=== PATIENT | female | born 1960 | race Caucasian/White ===

== ENCOUNTER 2024-02-22 10:57 | Outpatient (OUT) | payer BC, SELFPAY ==
--- NOTE | 2024-02-22 11:07 | XR_ITS ---
The [address] [address] Patient Name: AIRAM HASTINGS MRN: [id number] date: 1960 Sex: F Assigned Patient Location: [facility] Current Patient Location: [facility] Accession/Order Number: [id number] Exam Date: 02/22/2024 11:10 Report Date: 02/22/2024 14:08 At the request of: LAURO SIMS Procedure: XR abdomen 1V EXAMINATION: XR abdomen 1V HISTORY: History UTI Z87.440 COMPARISON: No relevant comparison available. FINDINGS: KIDNEY/URETER - RIGHT: No visible renal or ureteral calcifications. KIDNEY/URETER - LEFT: No visible renal or ureteral calcifications. PELVIS: No visible ureteral calcifications. Any visible calcifications favor phleboliths. BOWEL: No abnormal dilation or deviation. BONES: No acute abnormality. Degenerative changes OTHER: Negative. No abnormal gaseous collections. XR/XR abdomen 1V IMPRESSION: No definite urinary tract calculi Electronically authenticated by: CE GARCIA Date: 02/22/2024 14:08
== END 2024-02-22 10:58 | disposition home or self-care (01) ==
LOC: RAD 11:00
PROVIDERS: PCP Family Medicine; Visit Provider Physician Assistant
DX: Z87.440 Personal history of urinary (tract) infections (principal)
CPT/HCPCS: 74018

== ENCOUNTER 2024-04-24 09:37 | Outpatient (OUT) | payer BC, SELFPAY ==
--- OUTSIDE RECORDS SUMMARY | 2024-04-24 09:57 | XMS_ITS ---
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 Name Role Phone Niles Ortiz Primary Care Provider NILES ORTIZ Primary Care Unavailable ANGEL, DR FLORES Primary Care Unavailable ANGEL, DR FLORES Attending Unavailable ANGEL, DR FLORES Admitting Unavailable ANGEL, DR FLORES Attending Unavailable ANGEL, DR FLORES Admitting Unavailable ANGEL, DR FLORES Primary Care Unavailable Brooklyn Alcala Unavailable JULIO FREY Attending Unavailable NILES ORTIZ Primary Care Physician DEA SIMS Attending Unavailable DEA SIMS Attending Unavailable DEA SIMS Attending Unavailable DEA SIMS Attending Unavailable DEA SIMS Admitting Unavailable Allergies Allergy Classification Reported Allergen(s) Allergy Type Date of Onset Reaction(s) Facility (5 sources) Penicillins; Translations: [penicillins] Propensity to adverse reactions to drug 10-10-19 14 Difficulty breathing (finding), Eruption of skin (disorder) [facility] (1 source) Ciprofloxacin Drug Allergy 01-07-20 14 [facility] (1 source) Penicillins Drug allergy (disorder) 01-07-20 14 [facility] (1 source) Sulfonamides (Antibiotic) Drug allergy (disorder) 01-07-20 14 [facility] (1 source) Misc-Food; Translations: [Misc-Food] Food allergy (disorder) 02-20-20 14 [facility] (1 source) Cat/Feline Product Derivatives Drug allergy (disorder) 02-20-20 14 [facility] (5 sources) Ciprofloxacin; Translations: [ciprofloxacin] Drug Allergy hives, Weal (disorder) [facility] (1 source) Penicillin V Drug Allergy [employer] Other Encounters Encounter Date Encounter Type Care Provider Facility Start: 03-06-2024 End: 03-06-2024 Lab Drop off DEA SIMS [facility] Start: 03-06-2024 End: 03-06-2024 ambulatory DEABLANCA SIMS Facility:[facility] Start: 03-06-2024 End: 03-06-2024 Patient encounter procedure DEAREYES SIMS [facility] Start: 02-22-2024 End: 02-22-2024 ambulatory DEABLANCA SIMS Facility:[facility] Start: 02-22-2024 End: 02-22-2024 Patient encounter procedure DEABLANCA SIMS [facility] Start: 10-12-2023 End: 10-12-2023 ambulatory JULIO Jitendra TK Not Available Start: 08-09-2022 End: 08-09-2022 ambulatory Brooklyn Alcala Other [employer] Other Start: 08-09-2022 Office outpatient ne w 20 minutes Brooklyn Alcala [facility] [place] Start: 02-01-[address] NILES ORTIZ Facility: [facility] Start: 01-04-2022 End: 01-05-[address] NILES ORTIZ Facility: Start: 06-23-2021 Emergency department patient visit NILES Jitendra LLAMASA [facility] Start: 06-23-2021 End: 06-23-2021 Emergency department patient visit Niles Llamasa Work Phone: [facility] ED Comment on above: COVID-19 (Primary Dx ) Immunizations Immunization Date Immunization Notes Care Provider Fa cili 07-20-2021 influenza virus vacc ine, unspecified formulation DEA SIMS [facility] 01-08-2021 SARS-CoV-2 (COVID-19 ) mRNA BNT-162b2 vax DEA SIMS [facility] 12-18-2020 SARS-CoV-2 (COVID-19 ) mRNA BNT-162b2 vax DEA SIMS [facility] 06-05-2020 influenza virus vacc ine, unspecified formulation DEAREYES SIMS [facility] 09-07-2018 influenza virus vacc ine, unspecified formulation DEAREYES SIMS [facility] 09-07-2018 pneumococcal polysaccharide vaccine, 23 valent DEAREYES SIMS [facility] 09-07-2018 tetanus toxoid, redu jerry diphtheria toxoid, and acellular pertussis vaccine, adsorbed DEAREYES SIMS [facility] Medications Current Medications Medication Drug Class(es) Dates Sig (Normalized) Sig (Original) acetaminophen 325 mg / HYDROcodone bitartrate 5 mg oral tablet (1 source) Opioid Agonist Start: 10-10-2013 take 1 tablet by mouth every six hours as needed for pain HYDROcodone-acet aminophen (NORCO) 5-325 MG per tablet Take 1 tablet by mouth every 6 hours as needed for Pain (Avoid driving and alcohol use with taking this medication, may cause fatigue). 12 tablet 0 10/10/2013 Active [id number] 200 actuat albuterol 0.09 mg/actuat metered dose inhaler (1 source) beta2-Adrenergic Agonist Start: 08-09-2022 take 2 puff(s) by inhalation every four hours as needed Albuterol Sulfate HFA 108 (90 Base) MCG/ACT 2 puffs as needed Inhalation every 4 hrs Aug, Active Albuterol (Eqv-ProAir HFA) 90 mcg/inh inhalation aerosol (3 sources) Start: 02-22-2024 take 2 puff(s) by inhalation every four hours Albuterol (Eqv-ProAir HFA) 90 mcg/inh inhalation aerosol 2 puff(s), Inhalation, q4hr Start Date: 02/22/24 Status: Ordered amLODIPine Benzoate (1 source) amLODIPine Benzoate Active aspirin 81 mg delayed release oral tablet (4 sources) Platelet Aggregation Inhibitor, Nonsteroidal Anti-inflammatory Drug Start: 02-22-2024 take 1 tablet by mouth once daily aspirin 81 mg Oral EC Tab 81 mg = 1 tab(s), Oral, Daily Start Date: 02/22/24 Status: Ordered Baby Aspirin Act jett atorvastatin 80 mg oral tablet (4 sources) HMG-CoA Reductase Inhibitor Start: 02-22-2024 take 1 tablet by mouth once daily atorvastatin 80 mg Tab 80 mg = 1 tab(s), Oral, Daily Start Date: 02/22/24 Status: Ordered Lipitor Active azithromycin 250 mg oral tablet (2 sources) Macrolide Antimicrobial Start: 08-09-2022 Azithromycin 250 MG 2 tablets on the first day, then 1 tablet daily for 4 days Orally Once a day for 5 day(s) Aug, Active Start: 06-23-2021 End: 06-27-2021 azithromycin (ZITHROMAX Z-PA K) 250 MG tablet Indications: COVID-19 Take 2 tablets (500 mg) on Day 1, and then take 1 tablet (250 mg) on days 2 through 5. 1 packet 0 06/23/2021 06/27/2021 Active 12 hr guaiFENesin 600 mg extended release oral tablet (1 source) Start: 06-23-2021 End: 06-28-2021 take 1 tablet by mouth twice daily guaiFENesin (MUCINEX) 600 MG extended release tablet Take 1 tablet by mouth 2 times daily for 5 days 10 tablet 0 06/23/2021 06/28/2021 Active hydrALAZINE hydrochloride 10 mg oral tablet (4 sources) Arteriolar Vasodilator Start: 02-22-2024 take 1 tablet by mouth twice daily hydrALAZINE 10 mg Tab 10 mg = 1 tab(s), Oral, BID Start Date: 02/22/24 Status: Ordered hydrALAZINE HCl Active hydroCHLOROthiazide 25 mg oral tablet (1 source) Thiazide Diuretic take 1 tablet by mouth once daily hydrochlorothiazide (HYDRODIURIL) 25 MG tablet Take 25 mg by mouth daily. 0 Active hydroCHLOROthiazide 12.5 mg / lisinopril 20 mg oral tablet (4 sources) Thiazide Diuretic, Angiotensin Converting Enzyme Inhibitor Start: 2023 take 1 tablet by mouth once daily hydrochlorothiazide-lisin opril 12.5 mg-20 mg Tab 1 tab(s), Oral, Daily Start Date: 02/22/24 Status: Ordered Lisinopril-hydro CHLOROthiazide Active Insulin Glargine Max Solostar Pen (concentrated) 300 units/mL subcutaneous solution (3 sources) Start: 02-22-2024 Insulin Glargine Max Solostar Pen (concentrated) 300 units/mL subcutaneous solution 66 unit(s), SubCutaneous, Daily Start Date: 02/22/24 Status: Ordered liraglutide (1 source) GLP-1 Receptor Agonist Liraglutide (VICTOZA SC) Inject 1.2 mg into the skin. 0 Active metFORMIN (1 source) Biguanide metFORMIN HCl Ac tive methylPREDNISolone 4 mg oral tablet (1 source) Corticosteroid Start: 08-09-2022 methylPREDNISolone 4 MG as directed Orally Once a day for 6 days Aug, Active Metoprolol (1 source) beta-Adrenergic Alexandro Metoprolol Succinate Active semaglutide 14 mg oral tablet (3 sources) Start: 02-22-2024 take 1 tablet by mouth once daily Rybelsus 14 mg oral tablet 14 mg = 1 tab(s), Oral, Daily Start Date: 02/22/24 Status: Ordered sertraline 50 mg oral tablet (5 sources) Serotonin Reuptake Inhibitor Start: 02-22-2024 take 1 tablet by mouth once daily sertraline 50 mg Tab 50 mg = 1 tab(s), Oral, Daily Start Date: 02/22/24 Status: Ordered Sertraline HCl A ctive take 1 tablet by mouth once ambika y sertraline (ZOLOFT) 25 MG tablet Take 25 mg by mouth daily. 0 Active Completed/Discontinued Medications Medication Drug Class(es) Dates Sig (Normalized) Sig (Original) allopurinol 300 mg oral tablet (4 sources) Xanthine Oxidase Inhibitor Start: 02-22-2024 allopurinol 300 mg Tab 90 EA, 0 Refill(s), TAKE 1 TABLET BY MOUTH ONCE DAILY, Refills(s) 0 Start Date: 02/22/24 Status: Ordered Allopurinol Acti ve amLODIPine 10 mg oral tablet (3 sources) Dihydropyridine Calcium Channel Alexandro Start: 02-22-2024 take 1 tablet by mouth once daily amLODIPine 10 mg Tab 10 mg = 1 tab(s), Oral, Daily, TAKE 1 TABLET BY MOUTH ONCE DAILY Start Date: 02/22/24 Status: Ordered dexamethasone 1 mg/ml oral solution (1 source) Corticosteroid Start: 06-23-2021 End: 06-23-2021 dexamethasone (DECADRON) 1 MG/ML solution 10 mg empagliflozin 25 mg oral tablet (4 sources) Sodium-Glucose Cotransporter 2 Inhibitor Start: 02-22-2024 Jardiance 25 mg oral tablet 30 EA, 0 Refill(s), TAKE 1 TABLET BY MOUTH ONCE DAILY AT THE SAME TIME EACH DAY., Refills(s) 0 Start Date: 02/22/24 Status: Ordered Jardiance Active ondansetron 4 mg disintegrating oral tablet (2 sources) Serotonin-3 Receptor Antagonist Start: 06-23-2021 End: 06-23-2021 ondansetron (ZOFRAN-ODT) disintegrating tablet 4 mg Start: 06-23-2021 ondansetron (Z OFRAN ODT) [address] 1 tablet under the tongue every 8 hours as needed for Nausea or Vomiting 10 tablet 0 06/23/2021 Active Payers Date Payer Category Payer Unknown [id number] 2.16.84 [id number] 1960 Unknown [id number] 2.16.84 [id number] 1960 Unknown [id number] 2.16.84 [id number] 1960 Unknown [id number] 2.16.8 [id number] 1960 Unknown [id number] 2.16.8 [id number] 1960 Unknown [id number] 2.16.8 [id number] 1960 Unknown [id number] 2.16.8 [id number] 1959 Unknown [id number] [facility] [id number] Plan of Treatment Date Care Activity Detail Author Start: 09-07-2028 DTaP/Tdap/Td vaccine (2 - Td or Tdap) DTaP/Tdap/Td vaccine (2 - Td or Tdap) [employer] Phone: Start: 05-01-2024 ambulatory Ambulatory Facility:[facility] Start: 06-03-2021 Influenza vaccination Flu vaccine (# 1) [employer] Phone: Start: 2016 [facility] Work Phone: Start: 10-10-2014 Creatinine measurement Creatinine mo nitoring [facility] [employer] Phone: Start: 10-10-2014 Potassium monitoring Potassium monit oring [employer] Phone: Start: 2010 Screening for malign ant neoplasm of breast Breast cancer screen [employer] Phone: Start: 2010 Shingles Vaccine (1 of 2) Shingles Vaccine (1 of 2) [employer] Phone: Start: 2005 Screening for malign ant neoplasm of colon Colon cancer screen colonoscopy [employer] Phone: Start: 1975 HIV screening HIV screen [facility] Work Phone: Start: 1960 Hepatitis C screening Hepatitis C sc reen [employer] Phone: Problems Active Problems Problem Classification Problem Date Documented Da te Episodic/Chronic Asthma (3 sources) Asthma 02-17-2024 Chronic Biliary tract disease (3 sources) Biliary calculus 02-22-2024 Episodic Chronic obstructive pulmonary disease and bronchiectasis (1 source) Bronchitis, not specified as acute or chronic Episodic Deficiency and other anemia (3 sources) Anemia 02-22-2024 Episodic Diabetes mellitus without complication (3 sources) Diabetes mellitus 02-17-2024 Chronic Diverticulosis and diverticulitis (3 sources) Diverticulitis 02-17-2024 Chronic Essential hypertension (3 sources) Hypertensive disorder 02-17-2024 Chronic Fracture of upper limb (3 sources) Fracture of radius 02-22-2024 Episodic Genitourinary symptoms and ill-defined conditions (3 sources) History of urinary tract infection 02-22-2024 Episodic Headache; including migraine (3 sources) Headache 02-22-2024 Episodic Mood disorders (3 sources) Depressive disorder 02-17-2024 Chronic Other diseases of bladder and urethra (4 sources) Urethral stricture; Translations: [Unspecified urethral stricture, female] Onset: 02-22-2024 Episodic Other gastrointestinal disorders (3 sources) Irritable bowel syndrome 02-17-2024 Chronic Other upper respiratory infections (1 source) Acute pharyngitis, unspecified Episodic Residual codes; unclassified (4 sources) Obstructive sleep apnea (adult) (pediatric); Translations: [OBSTRUCTIVE SLEEP APNEA] Onset: 01-04-2022 Chronic Thyroid disorders (3 sources) Goiter 02-22-2024 Chronic Urinary tract infections (8 sources) Urinary tract infectious disease; Translations: [Urinary tract infection, site not specified] Onset: 02-22-2024 Episodic Viral infection (1 source) Disease caused by 2019-nCoV; Translations: [COVID-19] Episodic Past or Other Problems Problem Classification Problem Date Documented Da te Episodic/Chronic Unclassified (1 source) Contact with and (suspected) exposure to covid-19 Z20.822 Viral infection (1 source) COVID-19 Procedures Date Procedure Procedure Detail Performing Clinician Start: 06-23-2021 Radiologic exam chest 2 views Nano Pool DO Work Phone: Start: 10-03-2015 Colonoscopy DEA LEONARD Start: 08-09-[address] [facility] dilation of urethral stricture DEA SIMS Start: 10-03-2013 Colonoscopy DEA LEONARD Start: 10-03-2012 Cholecystectomy PABLOABIOLA SIMS Start: 10-03-2010 Thyroidectomy DEA SIMS Start: 10-03-2006 Hysterectomy DEA LEONARD Start: 10-03-1962 Tonsillectomy DEA SIMS Results Test Name Value Interpretation Reference Range Facility C Urineon 03-08-2024 Bacteria identified Cx Nom (U) Microbiology PROCEDURE: Urine Culture [R1] SOURCE: U CleanCatch BODY SITE: COLLECTED DATE/TIME: 03/06/2024 09:04 EDT RECEIVED DATE/TIME: 03/06/2024 19:53 EDT START DATE/TIME: 03/06/2024 19:54 EDT FREE TEXT SOURCE: DEA SIMS PA-C, PA-C, DEA Faith FINAL REPORTS Final Report [] Verified Date/Time: 03/08/2024 11:21 EDT >100,000 cfu/ml Klebsiella pneumoniae SUSCEPTIBILITY RESULTS __ LEGEND: S=Susceptible, N/R=Not Reported, Blank=Data not available, or drug not advisable or tested, I=Intermediate, ESBL=Extended spectrum beta-lactamase, R=Resistant, TFG=Thymidine-dependen t strain, CLIFTON=Beta-lactamase positive, OBDULIA=mcg/m;(mg/L), S*=Predicted susceptible interp, R*=Predicted resistant interp Klepne Antibiotic OBDULIA Dilutn OBDULIA Interp Amikacin <=16 S Ampicillin >16 R Ampicillin/ <=8/4 S Sulbactam Aztreonam <=4 S Cefazolin <=2 S Cefepime <=2 S Cefoxitin <=8 S Ceftazidime <=1 S Ceftazidime/ <=8 S Avibactam Ceftriaxone <=1 S Ciprofloxacin <=1 S Ertapenem <=0.5 S Gentamicin <=4 S Levofloxacin <=2 S Meropenem <=1 S Nitrofurantoin <=32 S Piperacillin/ <=16 S Tazobactam Tetracycline <=4 S Tigecycline <=2 S Tobramycin <=4 S Trimethoprim/ <=2/38 S Sulfa Performing Locations R1: This test was performed at: [facility], [address] [place] [address], [id number] , , [facility] Comment on above: Performed By: #### [id number] #### [facility] [address] [place] [address] Ambulatory Visit Summaryon 0 03-06-2024 Ambulatory Visit Summary AIRAM SILVERIO :1960 Visit Date:03/06/2024 Ambulatory Visit Instructions Your Diagnosis UTI (urinary tract infection) Your Care Team Attending Physician - LEVI NICOLE, DEA Faith Primary Care Physician - NILES ORTIZ MD This Is Your Medications List albuterol (Albuterol (Eqv-ProAir HFA) 90 mcg/inh inhalation aerosol) allopurinol (allopurinol 300 mg Tab) amlodipine (amLODIPine 10 mg Tab) aspirin (aspirin 81 mg Oral EC Tab) atorvastatin (atorvastatin 80 mg Tab) empagliflozin (Jardiance 25 mg oral tablet) hydrALAZINE (hydrALAZINE 10 mg Tab) hydrochlorothiazide-li sinopril (hydrochlorothiazide-l isinopril 12.5 mg-20 mg Tab) insulin glargine (Insulin Glargine Max Solostar Pen (concentrated) 300 units/mL subcutaneous solution) semaglutide (Rybelsus 14 mg oral tablet) sertraline (sertraline 50 mg Tab) Procedures Performed Colonoscopy (2015), Cystourethroscopy with dilation of urethral stricture (08/09/2014), Colonoscopy (2013), Cholecystectomy (2012), Thyroidectomy (2010), Hysterectomy (2006), Tonsillectomy (1962). What to do next Scheduled Follow-Up Appointments Tuesday 8:40 AM EDT With: DEA SIMS PA-C Where: [facility] RAD - MISCon 02-24-2024 [facility] [id number]#1.0 0TIFF [facility] Consultation Noteon 02-23-20 Consultation Note [id number]#1.00 TIFF [facility] Lab Reportson 02-23-2024 Lab Reports [id number]#1.00 TIFF [facility] Screenson 02-23-2024 Screens [id number] 0TIFF [facility] Ambulatory Visit Summaryon 0 02-22-2024 Ambulatory Visit Summary AIRAM SILVERIO :1960 Visit Date:02/22/2024 Ambulatory Visit Instructions Your Diagnosis Urinary tract infection Unspecified urethral stricture, female Tests Performed XR Abdomen 1 View -- Results Pending -- Please visit your patient portal for your results or contact your primary care physician. Your Care Team Attending Physician - DEA SIMS PA-C This Is Your Medications List Contact prescribing physician if questions or concerns albuterol (Albuterol (Eqv-ProAir HFA) 90 mcg/inh inhalation aerosol) allopurinol (allopurinol 300 mg Tab) amlodipine (amLODIPine 10 mg Tab) aspirin (aspirin 81 mg Oral EC Tab) atorvastatin (atorvastatin 80 mg Tab) empagliflozin (Jardiance 25 mg oral tablet) hydrALAZINE (hydrALAZINE 10 mg Tab) hydrochlorothiazide-li sinopril (hydrochlorothiazide-l isinopril 12.5 mg-20 mg Tab) insulin glargine (Insulin Glargine Max Solostar Pen (concentrated) 300 units/mL subcutaneous solution) semaglutide (Rybelsus 14 mg oral tablet) sertraline (sertraline 50 mg Tab) Procedures Performed Colonoscopy (2015), Cystourethroscopy with dilation of urethral stricture (08/09/2014), Colonoscopy (2013), Cholecystectomy (2012), Thyroidectomy (2010), Hysterectomy (2006), Tonsillectomy (1962). Discharge Vitals Temperature (Temporal Artery) 36.6 ?C Heart Rate (Peripheral) 90 Blood Pressure 110/68 Height 150 cm Height 59 in Weight 87 kg Weight 191.4 lb BMI 38.67 What to do next Scheduled Follow-Up Appointments Tuesday 8:40 AM EDT With: DEA SIMS PA-C Where: [facility] Patient Educationon 02-22-20 24 Patient Education Urology Dysuria Dysuria is pain or discomfort during urination. The pain or discomfort may be felt in the part of the body that drains urine from the bladder (urethra) or in the surrounding tissue of the genitals. The pain may also be felt in the groin area, lower abdomen, or lower back. You may have to urinate frequently or have the sudden feeling that you have to urinate (urgency). Dysuria can affect anyone, but it is more common in females. Dysuria can be caused by many different things, including: ? Urinary tract infection. ? Kidney stones or bladder stones. ? Certain STIs (sexually transmitted infections), such as chlamydia. ? Dehydration. ? Inflammation of the tissues of the vagina. ? Use of certain medicines. ? Use of certain soaps or scented products that cause irritation. Follow these instructions at home: Medicines ? Take oqnj-izr-jgbuyut and prescription medicines only as told by your health care provider. ? If you were prescribed an antibiotic medicine, take it as told by your health care provider. Do not stop taking the antibiotic even if you start to feel better. Eating and drinking ? Drink enough fluid to keep your urine pale yellow. ? Avoid caffeinated beverages, tea, and alcohol. These beverages can irritate the bladder and make dysuria worse. In males, alcohol may irritate the prostate. General instructions ? Watch your condition for any changes. ? Urinate often. Avoid holding urine for long periods of time. ? If you are female, you should wipe from front to back after urinating or having a bowel movement. Use each piece of toilet paper only once. ? Empty your bladder after sex. ? Keep all follow-up visits. This is important. ? If you had any tests done to find the cause of dysuria, it is up to you to get your test results. Ask your health care provider, or the department that is doing the test, when your results will be ready. Contact a health care provider if: ? You have a fever. ? You develop pain in your back or sides. ? You have nausea or vomiting. ? You have blood in your urine. ? You are not urinating as often as you usually do. Get help right away if: ? Your pain is severe and not relieved with medicines. ? You cannot eat or drink without vomiting. ? You are confused. ? You have a rapid heartbeat while resting. ? You have shaking or chills. ? You feel extremely weak. Summary ? Dysuria is pain or discomfort while urinating. Many different conditions can lead to dysuria. ? If you have dysuria, you may have to urinate frequently or have the sudden feeling that you have to urinate (urgency). ? Watch your condition for any changes. Keep all follow-up visits. ? Make sure that you urinate often and drink enough fluid to keep your urine pale yellow. This information is not intended to replace advice given to you by your health care provider. Make sure you discuss any questions you have with your health care provider. Document Revised: 05/01/2021 Document Reviewed: 05/01/2021 [employer] Patient Education ? 2022 [employer] Matt [facility] Urology Office/Clinic Noteon 02-22-2024 Urology Office/Clinic Note Chief Complaint New patient, dysuria, frequency, kidney pain HPI Staff Pt is a new pt. Last seen in our office by DLS 09/05/14. Pt no showed to follow up appt. DX: Urethral Stricture, Chronic Cystitis, Nocturia, Urgency & Frequency Hx of Hysterectomy in 2006 Hx of Cysto/UD 08/09/14 Hx of DM. Last A1C 10/12/23 6.4 UA 04/24/24 +blood TRACE Leuks & NEG Nitrates +C&S (several bacteria detected) 10/12/23 *Tx'd w/Macrobid therapy Last CMP 03/16/23 BUN 29 Crea 0.87 eGFR 75 Dysuria:yes, burning when urinating Incomplete bladder emptying: denies Hematuria: denies Frequency: once an hour Urgency: yes Nocturia: 2-3 x a night Stream: steady stream Leaking: denies Post void dripping: denies Wearing pads/ Depends: denies Urge incontinence: denies Stress incontinence:urinates when she is coughing, sneezing and laughing Incontinence without Sensory Awareness: _ Abdominal pain: yes left side lower abdominal pain Flank pain: left side Sexual complaints: _ History of Present Illness staff HPI reviewed and agree. Review of Systems PHQ Score Initial Depression Screen Score: 0 SCORE no fever, chills, malaise, myalgia. no rash/lesions. no chest pain, palpitations, or SOB. no abdominal pain, nausea, vomiting. no unilateral calf swelling, redness, pain Physical Exam Vitals & Measurements T: 36.6 ?C(Temporal Artery) HR: 90(Peripheral) BP: 110/68 HT: 59 in HT: 150 cm WT: 87 kg WT: 191.4 lb BMI: 38.67 General: nontoxic, NAD Mouth: moist mucosa Lungs: normal respiratory effort Cardio: regular rate, good distal perfusion Abdomen: nondistended, no suprapubic distention or tenderness, no CVA tenderness Neurologic: Grossly normal Skin: No rashes or suspicious lesions Assessment/Plan Airam is a 63 yo female new to our office due to kidney pain and foul smelling urine. Last seen by Dr. Duffy 2013. No showed follow up appt. BBS 17 Diabetic. Latest A1c 10/12/23 - 6.4 CMP 03/16/23 - BUN 29, Cr 0.87, eGFR 75 1. Urinary tract infection (N39.0: Urinary tract infection, site not specified) Saw her PCP, CONG Roy 10/12/23 for a fever. Was experiencing dysuria and abdominal pain that was radiating to her back. Also fell 3 days prior to that visit. UA was cloudy, positive for blood, and trace leuks. UCx: 10/12/23 - 25k E Coli, 21k Enterobacter Aerogenes, 29k Enterococcus faecalis, tx'd w/ Macrobid -Reports sx resolved, but quickly returned within a month States she has taken AZO since her last UTI along with cranberry juice. Shares she is still experiencing burning with urination and frequency, cloudy, and foul smelling urine, which has been happening since October. Pt states she might of passed a stone in December. Denies hx of stones. Had severe pain and sudden gross hematuria wiped something that 'looked like a clot or stone'. Will order KUB. -Check KUB, pt will have done today -Pt to return to our office after having KUB done to provide UA to send for culture, will treat w 10d course abx once cx final. -Follow up within 6-8 wks to reassess baseline sx 2. Unspecified urethral stricture, female (N35.92: Unspecified urethral stricture, female) S/p cysto/UD 08/09/[address] Duffy. Follow-up With When Contact Information LEVI NICOLE, DEA Faith, URL [address] [place] [address] Additional Instructions: 6 wks Patient Education Dysuria Documentation recorded by the soo Fisher accurately reflects the services(s) I performed and decisions made by me. Authenticated by Dea Sims PA-C on 02/22/2024 10:55:05. ICriselda, personally scribed for Pablo Sims PA-C on 02/22/2024 10:49:25. . Problem List/Past Medical History Ongoing Anemia Asthma Cholelithiases Depression Diabetes Diverticulitis Goiter Headache History of UTI Hypertension IBS (irritable bowel syndrome) Radial fracture Unspecified urethral stricture, female Urinary tract infection UTI (urinary tract infection) Historical No qualifying data Procedure/Surgical History Colonoscopy (2015), Cystourethroscopy with dilation of urethral stricture (08/09/2014), Colonoscopy (2013), Cholecystectomy (2012), Thyroidectomy (2010), Hysterectomy (2006), Tonsillectomy (1962). Medications Albuterol (Eqv-ProAir HFA) 90 mcg/inh inhalation aerosol, 2 puff(s), Inhalation, q4hr allopurinol 300 mg Tab amLODIPine 10 mg Tab, 10 mg= 1 tab(s), Oral, Daily aspirin 81 mg Oral EC Tab, 81 mg= 1 tab(s), Oral, Daily atorvastatin 80 mg Tab, 80 mg= 1 tab(s), Oral, Daily hydrALAZINE 10 mg Tab, 10 mg= 1 tab(s), Oral, BID hydrochlorothiazide-li sinopril 12.5 mg-20 mg Tab, 1 tab(s), Oral, Daily Insulin Glargine Max Solostar Pen (concentrated) 300 units/mL subcutaneous solution, 66 unit(s), SubCutaneous, Daily Jardiance 25 mg oral tablet Rybelsus 14 mg oral tablet, 14 mg= 1 tab(s), Oral, Daily sertraline 50 mg Tab, 50 mg= (more content not included)... Normal [facility] Comment on above: Result Comment: Elec tronically Signed By: DEA SIMS PA-C\.br\Date and Time Signed: 02/22/24 10:55 EDT\.br\Electronically Co-Signed By: Criselda Fisher.br\Date and Time Co-Signed: 02/22/24 10:49 EDT COVID/FLU RT-PCRon 2 SARS-CoV-2 (COVID-19) RNA ELBA+probe Ql (Unsp spec) Positive [employer] Other COVID/FLU RT-PCR Negative [employer] Other Quick Strepon 08-09-2022 S. pyogenes Org specific cx Ql (Throat) Negative [employer] Other Quick Strep [employer] Other XR CHEST (2 VW)on 06-23-2021 XR CHEST (2 VW) EXAMINATION: TWO XRAY VIEWS OF THE CHEST 06/23/2021 2:12 pm COMPARISON: None. HISTORY: ORDERING SYSTEM PROVIDED HISTORY: SOB TECHNOLOGIST PROVIDED HISTORY: SOB FINDINGS: Lungs are clear. Cardiac and mediastinal silhouettes unremarkable. Sternotomy wire sutures present. Osseous structures grossly intact. IMPRESSION: No acute findings. Interpreted by: Juancarlos York DO Signed by: Juancarlos York DO 06/23/21 Final result Normal [facility] XR CHEST (2 VW)Ordered By: Guerita Pool on 06-23-2021 No acute findings. [facility] EXAMINATION: TWO XRA Y VIEWS OF THE CHEST 06/23/2021 2:12 pm COMPARISON: None. HISTORY: ORDERING SYSTEM PROVIDED HISTORY: SOB TECHNOLOGIST PROVIDED HISTORY: SOB FINDINGS: Lungs are clear. Cardiac and mediastinal silhouettes unremarkable. Sternotomy wire sutures present. Osseous structures grossly intact. [facility] Phone: Babak, pn Incoming Radiant Results From [employer] - 06/23/2021 2:19 PM EDT EXAMINATION: TWO XRAY VIEWS OF THE CHEST 06/23/2021 2:12 pm COMPARISON: None. HISTORY: ORDERING SYSTEM PROVIDED HISTORY: SOB TECHNOLOGIST PROVIDED HISTORY: SOB FINDINGS: Lungs are clear. Cardiac and mediastinal silhouettes unremarkable. Sternotomy wire sutures present. Osseous structures grossly intact. IMPRESSION: No acute findings. [employer] Phone: [employer] Phone: Social History Date Type Detail Facility Start: 02-22-2024 Tobacco smoking status Never [facility] Start: 10-10-2013 Tobacco smoking status NHIS Never sm oker [facility] Phone: Start: 1960 [facility] Exposure to SARS-CoV -2 (event) [facility] Vital Signs Date Time Vital Sign Value Performing Clinician Facility 02-22-2024 10:23-0400 Blood Pressure Location DEA SIMS [facility] 02-22-2024 10:23-0400 Body temperature 97.88 [degF] DEA SIMS [facility] 02-22-2024 10:23-0400 Diastolic blood pressure 68 mm[Hg] DEA SIMS [facility] 02-22-2024 10:23-0400 Heart rate 90 /min DEA SIMS [facility] 02-22-2024 10:23-0400 Systolic blood pressure 110 mm[Hg] DEA SIMS [facility] 08-09-2022 11:55-0500 Body height 149.86 cm Brooklyn Alcala Other [employer] Other 08-09-2022 11:55-0500 Body mass index (BMI) [Ratio] 42.41 kg/m2 Brooklyn Alcala Other [employer] Other 08-09-2022 11:55-0500 Body temperature 98.4 [degF] Brooklyn Alcala Other [employer] Other 08-09-2022 11:55-0500 Body weight 95.26 kg Brooklyn Alcala Other [employer] Other 08-09-2022 11:55-0500 Respiratory rate 18 /min Brooklyn Alcala Other [employer] Other 08-09-2022 11:55-0500 SaO2% (BldA) [Mass fraction] 96 % Brooklyn Alcala Other [employer] Other 06-23-2021 16:25-0400 Heart rate 99 /min Rugen Randolph Work Phone: [employer] Work Phone: 06-23-2021 16:25-0400 SaO2% (BldA) [Mass fraction] 95 % Rugen Randolph Work Phone: [employer] Work Phone: 06-23-2021 14:04-0400 Diastolic blood pressure 84 mm[Hg] Rugen Randolph Work Phone: [employer] Work Phone: 06-23-2021 14:04-0400 Systolic blood pressure 132 mm[Hg] Rugen Randolph Work Phone: [employer] Work Phone: 06-23-2021 14:02-0400 Body temperature 99.3 [degF] Rugen Randolph Work Phone: [employer] Work Phone: 06-23-2021 14:02-0400 Respiratory rate 17 /min Rugen Randolph Work Phone: [employer] Work Phone: Functional Status Date Assessment Result Facility 02-22-2024 Functional Status N/A [facility] Discharge instructions 02-22-2024 Note Date & Type Note Facility 02-22-2024 Hospital Discharg e instructions Patient Education 02/22/2024 10:49:13 Dysuria Dysuria Dysuria is pain or discomfort during urination. The pain or discomfort may be felt in the part of the body that drains urine from the bladder (urethra) or in the surrounding tissue of the genitals. The pain may also be felt in the groin area, lower abdomen, or lower back. You may have to urinate frequently or have the sudden feeling that you have to urinate (urgency). Dysuria can affect anyone, but it is more common in females. Dysuria can be caused by many different things, including: Urinary tract infection. Kidney stones or bladder stones. Certain STIs (sexually transmitted infections), such as chlamydia. Dehydration. Inflammation of the tissues of the vagina. Use of certain medicines. Use of certain soaps or scented products that cause irritation. Follow these instructions at home: Medicines Take vpww-ygs-sshyolv and prescription medicines only as told by your health care provider. If you were prescribed an antibiotic medicine, take it as told by your health care provider. Do not stop taking the antibiotic even if you start to feel better. Eating and drinking Drink enough fluid to keep your urine pale yellow. Avoid caffeinated beverages, tea, and alcohol. These beverages can irritate the bladder and make dysuria worse. In males, alcohol may irritate the prostate. General instructions Watch your condition for any changes. Urinate often. Avoid holding urine for long periods of time. If you are female, you should wipe from front to back after urinating or having a bowel movement. Use each piece of toilet paper only once. Empty your bladder after sex. Keep all follow-up visits. This is important. If you had any tests done to find the cause of dysuria, it is up to you to get your test results. Ask your health care provider, or the department that is doing the test, when your results will be ready. Contact a health care provider if: You have a fever. You develop pain in your back or sides. You have nausea or vomiting. You have blood in your urine. You are not urinating as often as you usually do. Get help right away if: Your pain is severe and not relieved with medicines. You cannot eat or drink without vomiting. You are confused. You have a rapid heartbeat while resting. You have shaking or chills. You feel extremely weak. Summary Dysuria is pain or discomfort while urinating. Many different conditions can lead to dysuria. If you have dysuria, you may have to urinate frequently or have the sudden feeling that you have to urinate (urgency). Watch your condition for any changes. Keep all follow-up visits. Make sure that you urinate often and drink enough fluid to keep your urine pale yellow. This information is not intended to replace advice given to you by your health care provider. Make sure you discuss any questions you have with your health care provider. Document Revised: 05/01/2021 Document Reviewed: 05/01/2021 [employer] Patient Education 2022 [employer] Follow Up Care 01/16/2024 11:44:07 With:LEVI NICOLE, DEA Faith, URL Address: [address] [address] When: Unknown [facility] 08-09-[facility] Note Date & Type Note Facility 08-09-2022 Evaluation note Encounter Date Diagnosis Assessment Notes Aug, Sore throat (ICD-10 - J02.9) Aug, COVID-19 (ICD-10 - U07.1) Discharge Instructions for COVID-19 (Suspected or Confirmed ) material was printed Today you tested positive for the COVID virus. This mean you need to follow all CDC quarantine guidelines found at coronavirus.[place].gov. It is important to rest, increase fluids, and stay at home. Recommend contacting primary care provider and discussing best course of action if you have chronic health conditions. COVID POSITIVE education handout discharge instructions. given. Aug, Contact with and (suspected) exposure to covid-19 (ICD-10 - Z20.822) Aug, Bronchitis (ICD-10 - J40) Bronchitis is inflammation of openings of lungs. It is not caused from bacteria. Antibiotics are not needed to treat this illness. Take medications as directed. Rest and increase fluid intake. Take meds with food to prevent stomach upset. Use inhaler as needed for SOB. Blood sugars may increase due to steroid treatment so eat lower amount of carbs. Follow up with primary care provider if symptoms do not improve with treatment plan, although it may take a few weeks for the cough to go away. [employer] Other Hospital Discharge instructions 06-23-2021 Discharge Instr - COCAttachments Note Date & Type Note Facility 06-23-2021 Hospital Discharg e instructions Franci Leyva PA-C - 06/23/2021 1:21 PM EDT Continuity of Care Form Patient Name: Airam Silverio : 1960 Admit date: 06/23/2021 Discharge date: Code Status Order: No Order Advance Directives: Admitting Physician: No admitting provider for patient encounter. PCP: Niles Ortiz Discharging Nurse: Discharging Hospital Unit/Room#: 01/04 Discharging Unit Phone Number: Emergency Contact: No emergency contact information on file. Past Surgical History: Past Surgical History: Procedure Laterality Date CHOLECYSTECTOMY HYSTERECTOMY TONSILLECTOMY Immunization History: Immunization History Administered Date(s) Administered COVID-19, Pfizer, PF, 30mcg/0.3mL 12/18/2020, 01/08/2021 Active Problems: There is no problem list on file for this patient. Isolation/Infection: Isolation No Isolation Patient Infection Status None to display Nurse Assessment: Last Vital Signs: BP 132/84 Pulse 94 Temp 99.3 F (37.4 C) Resp 17 SpO2 96% Last documented pain score (0-10 scale): Pain Level: 8 Last Weight: Wt Readings from Last 1 Encounters: No data found for Wt Mental Status: {IP PT MENTAL STATUS:} IV Access: { RONNI IV ACCESS:540200072} Nursing Mobility/ADLs: Walking {CHP DME ADLs:483404683} Transfer {CHP DME ADLs:504511261} Bathing {CHP DME ADLs:117630485} Dressing {CHP DME ADLs:763846053} Toileting {CHP DME ADLs:197951600} Feeding {CHP DME ADLs:993877761} Offset Printing Press[employer] {CHP DME ADLs:574424293} Med Delivery { RONNI MED Delivery:063361776} Wound Care Documentation and Therapy: Elimination: Continence: Bowel: {YES / NO:} Bladder: {YES / NO:} Urinary Catheter: {Urinary Catheter:386389586} Colostomy/Ileostomy/Ileal Conduit: {YES / NO:} Date of Last BM: No intake or output data in the 24 hours ending 06/23/21 1601 No intake/output data recorded. Safety Concerns: { RONNI Safety Concerns:910197439} Impairments/Disabilities: { RONNI Impairments/Disabilities:28130 8273} Nutrition Therapy: Current Nutrition Therapy: { RONNI Diet List:953786958} Routes of Feeding: {[facility] DME Other Feedings:128010331} Liquids: {[facility] liquid thickness:19378} Daily Fluid Restriction: {CHP DME Yes amt example:793771032} Last Modified Barium Swallow with Video (Video Swallowing Test): {Done Not Done Date:} Treatments at the Time of Hospital Discharge: Respiratory Treatments: Oxygen Therapy: {Therapy; copd oxygen:11502} Ventilator: { CC Vent List:225029421} Rehab Therapies: {THERAPEUTIC INTERVENTION:3749911217} Weight Bearing Status/Restrictions: {[facility] Weight Bearin} Other Medical Equipment (for information only, NOT a DME order): {EQUIPMENT:097334080} Other Treatments: Patient's personal belongings (please select all that are sent with patient): {[facility] DME Belongings:755368961} RN SIGNATURE: {Esignature:655573337} CASE MANAGEMENT/SOCIAL WORK SECTION Inpatient Status Date: Readmission Risk Assessment Score: Readmission Risk Risk of Unplanned Readmission: 0 Discharging to Facility/ Agency Name: Address: Phone: Fax: Dialysis Facility (if applicable) Name: Address: Dialysis Schedule: Phone: Fax: [employer] Room signature: {Esignature:840094295} PHYSICIAN SECTION Prognosis: {Prognosis:3319031785} Condition at Discharge: { Patient Condition:851303919} Rehab Potential (if transferring to Rehab): {Prognosis:6631962550} Recommended Labs or Other Treatments After Discharge: Physician Certification: I certify the above information and transfer of Airam Silverio is necessary for the continuing treatment of the diagnosis listed and that she requires {Admit to Appropriate Level of Care:75174} for {GREATER/LESS:873771495} 30 days. Update Admission H&P: {CHP DME Changes in HandP:000063006} PHYSICIAN SIGNATURE: {Esignature:678646956} The following attachments cannot be sent through Care Everywhere.Coronavirus Disease (COVID-19): General Info (Pashto)documented in this encounter [facility] Phone: Evaluation + Plan note Note Date & Type Note Facility Evaluation + Plan note Future Appointments Appointment Date:05/01/2024 08:40:00 AM Scheduled Provider:DEA SIMS PA-C Location:[facility] Appointment Type:URO Office Visit [facility] Evaluation + Plan note Note Date & Type Note Facility Evaluation + Plan note Future Appointments Appointment Date:05/01/2024 08:40:00 AM Scheduled Provider:DEA SIMS PA-C Location:[facility] Appointment Type:URO Office Visit Diagnostic Tests PendingUrine Culture 03/06/24 [facility] Evaluation note Note Date & Type Note Facility Evaluation note Diagnosis COVID-19- Primary documented in this encounter [employer] Phone: History general Narrative - Reported Note Date & Type Note Facility History general Narrative - Reported Type Medical History Hypertension Medical History type II diabetes Medical History Gout [employer] Other Hospital course Narrative Note Date & Type Note Facility Hospital course Narrative No data available for this section [facility] Hospital Discharge instructions Note Date & Type Note Facility Hospital Discharge instructions No data available for this section [facility] Progress note Note Date & Type Note Facility Progress note No data available for this section [facility] Summary Purpose Family History No Family History Records FoundNo Family History Records FoundNo Family History Records Found No data available for this section No data available for this section No data available for this section No Family History Records FoundNo Family History Records FoundNo Family History Records Found Advance Directives No Advanced Directives Records FoundNo Advanced Directives Records FoundNo Advanced Directives Records FoundNo Advanced Directives Records FoundNo Advanced Directives Records FoundNo Advanced Directives Records Found Additional Source Comments Reason for Visit (unrecogniz ed section and content) Reason Comments Positive For Covid-19 pt sent here from urgent care for cxr, positive for covid this am, states difficulty breathing Ordered Prescriptions (unrec ognized section and content) Prescription Sig Dispensed Refills Start Date End Da te guaiFENesin (MUCINEX) 600 MG extended release tablet Take 1 tablet by mouth 2 times daily for 5 days 10 tablet 0 06/23/2021 06/28/2021 azithromycin (ZITHROMAX Z-TRACI) 250 MG tabletIndications:COVID-1 9 Take 2 tablets (500 mg) on Day 1, and then take 1 tablet (250 mg) on days 2 through 5. 1 packet 0 06/23/2021 06/27/2021 ondansetron (ZOFRAN ODT) [address] 1 tablet under the tongue every 8 hours as needed for Nausea or Vomiting 10 tablet 0 06/23/2021 Scheduled Active and Recently Administ ered Medications (unrecognized section and content) Medication Order 06/21/2021 06/22/2021 06/23/2021 dexamethasone (DECADRON) 1 MG/ML solution 10 mg (COMPLETED) 10 mg, Oral, ONCE, On Tue06/23/21 at 1615, For 1 dose 1624 (Given - Provid er: Brooklyn White RN) ondansetron (ZOFRAN-ODT) disintegrating tablet 4 mg (COMPLETED) 4 mg, Oral, ONCE, On Tue06/23/21 at 1600, For 1 dose 1623 (Given - Provid er: Brooklyn White RN) INFORMATION SOURCE (unrecogn ized section and content) DATE CREATED AUTHOR 06/27/2021 Carrie Moreno [facility] DATE CREATED AUTHOR AUTHOR'S ORGANIZ ATION 03/25/2022 [facility] DATE CREATED AUTHOR AUTHOR'S ORGANIZ ATION 10/13/2023 [facility] DATE CREATED AUTHOR AUTHOR'S ORGANIZ ATION 03/07/2024 [facility] DATE CREATED AUTHOR AUTHOR'S ORGANIZ ATION 03/09/2024 [facility] DATE CREATED AUTHOR AUTHOR'S ORGANIZ ATION 03/10/2024 [facility] Patient Care team informatio n (unrecognized section and content) Personnel Name: ANGEL NILES MESSINA Address: Address: [address] FOR RECORDS PERTAINING TO PATIENTS WHO ARE OR HAVE BEEN ENROLLED IN A CHEMICAL DEPENDENCY/SUBSTANCEABUSE PROGRAM, SOME INFORMATION MAY BE OMITTED. This clinical summary was aggregated from multiple sources. Caution should be exercised in using it in the provision of clinical care. This summary normalizes information from multiple sources, and as a consequence, information in this document may materially change the coding, format and clinical context of patient data. In addition, data may be omitted in some cases. CLINICAL DECISIONS SHOULD BE BASED ON THE PRIMARY CLINICAL RECORDS. [facility]. provides no warranty or guarantee of the accuracy or completeness of information in this document.
[2024-04-24 10:02] LABS: Basophils Absolute Auto 0.1 10^3/uL (0.0-0.1); Basophils Percent Auto 0.7 % (0.2-2.0); Eosinophils Absolute Auto 0.3 10^3/uL (0.0-0.7); Eosinophils Percent Auto 2.5 % (0.9-7.0); Hematocrit 44.2 % (36.0-48.0); Hemoglobin 14.5 g/dL (12.0-16.0); Immature Granulocytes Abs Auto 0.03 10^3/uL (0.00-0.03); Immature Granulocytes Pct Auto 0.2 % (0.0-0.5); Lymphocytes Absolute Auto 3.4 10^3/uL (1.2-3.8); Mean Corpuscular HGB Conc 32.8 g/dL (29.9-35.2); Mean Corpuscular Hemoglobin 29.7 pg (26.7-34.0); Mean Corpuscular Volume 90.6 fL (81.0-99.0); Mean Platelet Volume 10.6 fL (9.5-13.5); Monocytes Absolute Auto 0.8 10^3/uL (0.3-0.8); Monocytes Percent Auto 6.4 % (1.7-12.0); Neutrophils Absolute Auto 7.6 10^3/uL (1.4-6.5); Neutrophils Percent Auto 62.2 % (43.0-75.0); Platelet Count 243 10^3/uL (150-450); Red Blood Count 4.88 10^6/uL (4.20-5.40); Red Cell Distribution Width 15.3 % (11.0-15.0); White Blood Count 12.3 10^3/uL (4.0-11.0)
[2024-04-24 10:20] LABS: Creatinine Urine Random 89.35 mg/dL (20.00-300.00); Microalbum Creatinine Ratio Ur 27.9 mg/g (0.0-29.9); Microalbumin Urine Random 2.5 mg/dL (<=30.0)
[2024-04-24 10:21] LABS: Alanine Aminotransferase 26 U/L (14-59); Albumin Globulin Ratio 0.9; Albumin Level 3.8 g/dL (3.4-5.0); Alkaline Phosphatase 89 U/L (46-116); Anion Gap 13.2; Aspartate Amino Transferase 29 U/L (15-37); BUN Creatinine Ratio 25.9; Bilirubin Total 0.5 mg/dL (0.2-1.0); Calcium 9.3 mg/dL (8.5-10.1); Carbon Dioxide 27.1 mmol/L (21.0-32.0); Chloride 102 mmol/L (98-107); Chol HDL Ratio 3.2; Cholesterol 143 mg/dL (<=200); Estimated GFR (African America >60 (>=60); Estimated GFR (Non-African Ame 51 (>=60); Globulin 4.1 g/dL; Glucose 134 mg/dL (74-106); HDL Cholesterol 45 mg/dL (40-60); Potassium 4.3 mmol/L (3.5-5.1); Sodium 138 mmol/L (136-145); Total Protein 7.9 g/dL (6.4-8.2); Triglycerides 199 mg/dL (<=150); VLDL CHOLESTEROL 39.8 mg/dL
== END 2024-04-24 09:38 | disposition home or self-care (01) ==
LOC: LAB 09:38
PROVIDERS: PCP Family Medicine; Visit Provider Family Medicine
DX: Z00.00 Encounter for general adult medical examination without abnormal findings (principal); E11.29 Type 2 diabetes mellitus with other diabetic kidney complication; E78.1 Pure hyperglyceridemia; E78.3 Hyperchylomicronemia
CPT/HCPCS: 36415; 80053; 80061; 82043; 82570; 85025

== ENCOUNTER 2024-07-06 10:31 | Emergency (ER) | payer BC, SELFPAY ==
--- OUTSIDE RECORDS SUMMARY | 2024-07-06 10:50 | XMS_ITS | CCD ---
Author Organization [facility] Care Team Providers Care Denture Contour Wire Specialist Name Role Phone Niles Ortiz Primary Care Provider [phone] NILES ORTIZ Primary Care Unavailable ANGEL, DR FLOERS Primary Care Unavailable ANGEL, DR FLORES Attending Unavailable ANGEL, DR FLORES Admitting Unavailable ANGEL, DR FLORES Attending Unavailable ANGEL, DR FLORES Admitting Unavailable ANGEL, DR FLORES Primary Care Unavailable Brooklyn Alcala Unavailable NILES ORTIZ Primary Care Physician [phone] JULIO FREY Attending Unavailable NILES ORTIZ Attending Unavailable DEA SIMS Attending Unavailable DEA SIMS Attending Unavailable DEA SIMS Attending Unavailable DEA SIMS Admitting Unavailable DEA SIMS Attending Unavailable Allergies Allergy Classification Reported Allergen(s) Allergy Type Date of Onset Reaction(s) Facility (6 sources) Penicillins; Translations: [penicillins] Propensity to adverse reactions to drug 10-10-19 14 Difficulty breathing (finding), Eruption of skin (disorder) [facility] (1 source) Ciprofloxacin Drug Allergy 01-07-20 14 [facility] (1 source) Penicillins Drug allergy (disorder) 01-07-20 14 [facility] (1 source) Sulfonamides (Antibiotic) Drug allergy (disorder) 01-07-20 14 [facility] (1 source) Misc-Food; Translations: [Misc-Food] Food allergy (disorder) 02-20-20 14 [facility] (1 source) Cat/Feline Product Derivatives Drug allergy (disorder) 02-20-20 14 [facility] (6 sources) Ciprofloxacin; Translations: [ciprofloxacin] Drug Allergy hives, Weal (disorder) [facility] Katerina (1 source) Penicillin V Drug Allergy hives [facility] [employer] Other Medications Current Medications Medication Drug Class(es) Dates [...] cause fatigue). 12 tablet 0 10/10/2013 Active [id number] 200 actuat albuterol 0.09 mg/actuat metered dose inhaler (1 source) beta2-Adrenergic Agonist Start: 08-09-2022 take 2 puff(s) by inhalation every four hours as needed Albuterol Sulfate HFA 108 (90 Base) MCG/ACT 2 puffs as needed Inhalation every 4 hrs Aug, Active Albuterol (Eqv-ProAir HFA) 90 mcg/inh inhalation aerosol (4 sources) Start: 02-22-2024 take 2 puff(s) by inhalation every four hours Albuterol (Eqv-ProAir HFA) 90 mcg/inh inhalation aerosol 2 puff(s), Inhalation, q4hr Start Date: 02/22/24 Status: Ordered amLODIPine Benzoate (1 source) amLODIPine Benzoate Active aspirin 81 mg delayed release oral tablet (5 sources) Platelet Aggregation Inhibitor, Nonsteroidal Anti-inflammatory Drug Start: 02-22-2024 take 1 tablet by mouth once daily aspirin 81 mg Oral EC Tab 81 mg = 1 tab(s), Oral, Daily Start Date: 02/22/24 Status: Ordered Baby Aspirin Act jett atorvastatin 80 mg oral tablet (5 sources) HMG-CoA Reductase Inhibitor Start: 02-22-2024 take [...] Active hydrALAZINE hydrochloride 10 mg oral tablet (5 sources) Arteriolar Vasodilator Start: 02-22-2024 take 1 [...] mg / lisinopril 20 mg oral tablet (5 sources) Thiazide Diuretic, Angiotensin Converting Enzyme Inhibitor Start: 2023 take 1 tablet by mouth once daily hydrochlorothiazide-lisin opril 12.5 mg-20 mg Tab 1 tab(s), Oral, Daily Start Date: 02/22/24 Status: Ordered Lisinopril-hydro CHLOROthiazide Active Insulin Glargine Max Solostar Pen (concentrated) 300 units/mL subcutaneous solution (4 sources) Start: 02-22-2024 Insulin Glargine Max Solostar [...] Succinate Active semaglutide 14 mg oral tablet (4 sources) Start: 02-22-2024 take 1 tablet by mouth once daily Rybelsus 14 mg oral tablet 14 mg = 1 tab(s), Oral, Daily Start Date: 02/22/24 Status: Ordered sertraline 50 mg oral tablet (6 sources) Serotonin Reuptake Inhibitor Start: 02-22-2024 take [...] Sig (Original) allopurinol 300 mg oral tablet (5 sources) Xanthine Oxidase Inhibitor Start: 02-22-2024 allopurinol 300 mg Tab 90 EA, 0 Refill(s), TAKE 1 TABLET BY MOUTH ONCE DAILY, Refills(s) 0 Start Date: 02/22/24 Status: Ordered Allopurinol Acti ve amLODIPine 10 mg oral tablet (4 sources) Dihydropyridine Calcium Channel Alexandro Start: 02-22-2024 take 1 tablet by mouth once daily amLODIPine 10 mg Tab 10 mg = 1 tab(s), Oral, Daily, TAKE 1 TABLET BY MOUTH ONCE DAILY Start Date: 02/22/24 Status: Ordered dexamethasone 1 mg/ml oral solution (1 source) Corticosteroid Start: 06-23-2021 End: 06-23-2021 dexamethasone (DECADRON) 1 MG/ML solution 10 mg empagliflozin 25 mg oral tablet (5 sources) Sodium-Glucose Cotransporter 2 Inhibitor Start: 02-22-2024 [...] or Vomiting 10 tablet 0 06/23/2021 Active Problems Active Problems Problem Classification Problem Date Documented Da te Episodic/Chronic Asthma (4 sources) Asthma 02-17-2024 Chronic Biliary tract disease (4 sources) Biliary calculus 02-22-2024 Episodic Chronic obstructive pulmonary disease and bronchiectasis (1 source) Bronchitis, not specified as acute or chronic Episodic Deficiency and other anemia (4 sources) Anemia 02-22-2024 Episodic Diabetes mellitus without complication (4 sources) Diabetes mellitus 02-17-2024 Chronic Diverticulosis and diverticulitis (4 sources) Diverticulitis 02-17-2024 Chronic Essential hypertension (4 sources) Hypertensive disorder 02-17-2024 Chronic Fracture of upper limb (4 sources) Fracture of radius 02-22-2024 Episodic Genitourinary symptoms and ill-defined conditions (4 sources) History of urinary tract infection 02-22-2024 Episodic Headache; including migraine (4 sources) Headache 02-22-2024 Episodic Mood disorders (4 sources) Depressive disorder 02-17-2024 Chronic Other diseases of bladder and urethra (5 sources) Urethral stricture; Translations: [Unspecified urethral stricture, female] Onset: 02-22-2024 Episodic Other gastrointestinal disorders (4 sources) Irritable bowel syndrome 02-17-2024 Chronic Other upper respiratory infections (1 source) Acute pharyngitis, unspecified Episodic Residual codes; unclassified (4 sources) Obstructive sleep apnea (adult) (pediatric); Translations: [OBSTRUCTIVE SLEEP APNEA] Onset: 01-04-2022 Chronic Thyroid disorders (4 sources) Goiter 02-22-2024 Chronic Urinary tract infections (10 sources) Urinary tract infectious disease; Translations: [Urinary tract infection, site not specified] Onset: 02-22-2024 Episodic Viral infection (1 source) Disease caused by 2019-nCoV; Translations: [COVID-19] Episodic Past or Other Problems Problem Classification Problem Date Documented Da te Episodic/Chronic Unclassified (1 source) Contact with and (suspected) exposure to covid-19 Z20.822 Viral infection (1 source) COVID-19 Results Test Name Value Interpretation Reference Range Facility C Urineon 06-06-2024 Bacteria identified Cx Nom (U) Microbiology PROCEDURE: [...] Locations R1: This test was performed at: [facility], [address] [place] [address], [id number]- , [place], [facility] Comment on above: Performed By: #### 2 [id number] #### [facility] [address] [place] [id number] Ambulatory Visit Summaryon 0 03-06-2024 Ambulatory Visit Summary AIRAM SILVERIO :1960 Visit Date:03/06/2024 Ambulatory Visit Instructions Your Diagnosis UTI (urinary tract infection) Your Care Team Attending Physician - LEVI NICOLE, DEA Faith Primary Care Physician - ANGEL MESSINA, NILES Ham This Is Your Medications List albuterol (Albuterol [...] DEA SIMS PA-C Where: [facility] RAD - MISCon 02-24-2024 RAD - MIS [id number]#[id number] 0TIFF [facility] Consultation Noteon 02-23-20 Consultation Note [id number]#[id number] TIFF [facility] Screenson 02-23-2024 Screens [id number] 0TIFF [facility] Ambulatory Visit Summaryon 0 02-22-2024 Ambulatory Visit Summary AIRAM SILVERIO :1960 Visit Date:02/22/2024 Ambulatory Visit Instructions Your Diagnosis Urinary tract infection Unspecified urethral stricture, female Tests Performed XR Abdomen 1 View -- Results Pending -- Please visit your patient portal for your results or contact your primary care physician. Your Care Team Attending Physician - DAE SIMS PA-C This Is Your Medications List [...] Cholecystectomy (2012), Thyroidectomy (2010), Hysterectomy (2006), Tonsillectomy (1963). Discharge Vitals Temperature (Temporal Artery) 36.6 ?C Heart Rate (Peripheral) 90 Blood Pressure 110/68 Height 150 cm Height 59 in Weight 87 kg Weight 191.4 lb BMI 38.67 What to do next Scheduled Follow-Up Appointments Tuesday 8:40 AM EDT With: DEA SIMS PA-C Where: [facility] [place] [facility] Patient Educationon 02-22-20 Patient Education Urology Dysuria Dysuria is pain [...] these instructions at home: Medicines ? Take kgdm-rfi-otntyyq and prescription medicines only as told by [...] provider. Document Revised: 05/01/2021 Document Reviewed: 05/01/2021 efw-[email or web address] Patient Education ? 2022 [employer]. [facility] Urology Office/Clinic Noteon 02-22-2024 Urology Office/Clinic Note [...] Contact Information LEVI NICOLE, DEA Faith, URL [address] [place] [address] Additional Instructions: 6 wks Patient Education Dysuria Documentation recorded by the soo Fisher accurately reflects the services(s) I performed and decisions made by me. Authenticated by Dea Sims PA-C on 02/22/2024 10:55:05. ICriselda, personally scribed for Kaylah Sims PA-C on 02/22/2024 10:49:25. . Problem [...] 50 mg= (more content not included)... [facility] Comment on above: Result Comment: Elec tronically Signed By: DEA SIMS PA-C\.br\Date and Time Signed: 02/22/24 10:55 EDT\.br\Electronically Co-Signed By: Criselda Fisher\.br\Date and Time Co-Signed: 02/22/24 10:49 EDT COVID/FLU RT-PCRon SARS-CoV-2 (COVID-19) RNA ELBA+probe Ql (Unsp spec) Positive [facility] Other COVID/FLU RT-PCR Negative [facility] [employer] Other Quick Strepon 08-09-2022 S. pyogenes Org specific cx Ql (Throat) Negative [facility] Other Quick Strep [facility] Other XR CHEST (2 VW)on 06-23-2021 XR [...] Juancarlos York DO 06/23/[address] [facility] XR CHEST (2 VW)Ordered By: Guerita Pool on 06-23-2021 No acute findings. [facility] [employer] Work Phone: EXAMINATION: TWO XRA Y VIEWS OF THE CHEST 06/23/2021 2:12 pm COMPARISON: None. HISTORY: ORDERING SYSTEM PROVIDED HISTORY: SOB TECHNOLOGIST PROVIDED HISTORY: SOB FINDINGS: Lungs are clear. Cardiac and mediastinal silhouettes unremarkable. Sternotomy wire sutures present. Osseous structures grossly intact. [employer] Phone: Babak, Mhpn Incoming Radiant Results From [facility] - 06/23/2021 2:19 PM EDT EXAMINATION: TWO XRAY VIEWS OF THE CHEST 06/23/2021 2:12 pm COMPARISON: None. HISTORY: ORDERING SYSTEM PROVIDED HISTORY: SOB TECHNOLOGIST PROVIDED HISTORY: SOB FINDINGS: Lungs are clear. Cardiac and mediastinal silhouettes unremarkable. Sternotomy wire sutures present. Osseous structures grossly intact. IMPRESSION: No acute findings. [employer] Phone: [employer] Phone: Vital Signs Date Time Vital Sign Value Performing Clinician Facility 02-22-2024 10:23-0400 Blood Pressure Location DEAREYES ROWLANDRY [facility] 02-22-2024 10:23-0400 Body temperature 97.88 [degF] DEA SIMS [facility] 02-22-2024 10:23-0400 Diastolic blood pressure 68 mm[Hg] DEA ROWLANDRY [facility] 02-22-2024 10:23-0400 Heart rate 90 /min DEA ROWLANDRY [facility] 02-22-2024 10:23-0400 Systolic blood pressure 110 mm[Hg] DEAREYES ROWLANDRY [facility] 08-09-2022 11:55-0500 Body height 149.86 cm Brooklyn Alcala Other [facility] Other 08-09-2022 11:55-0500 Body mass index (BMI) [Ratio] 42.41 kg/m2 Brooklyn Alcala Other [facility] Other 08-09-2022 11:55-0500 Body temperature 98.4 [degF] Brooklyn Alcala Other [facility] Other 08-09-2022 11:55-0500 Body weight 95.26 kg Brooklyn Alcala Other [facility] Other 08-09-2022 11:55-0500 Respiratory rate 18 /min Brooklyn Alcala Other [facility] Other 08-09-2022 11:55-0500 SaO2% (BldA) [Mass fraction] 96 % Brooklyn Alcala Other [facility] Other 06-23-2021 16:25-0400 Heart rate 99 /min [employer] Work Phone: [employer] Work Phone: 06-23-2021 16:25-0400 SaO2% (BldA) [Mass fraction] 95 % Rugen Naples Work Phone: [employer] Work Phone: 06-23-2021 14:04-0400 Diastolic blood pressure 84 mm[Hg] Rugen Angel Work Phone: [employer] Work Phone: 06-23-2021 14:04-0400 Systolic blood pressure 132 mm[Hg] Rugen Naples Work Phone: [employer] Work Phone: 06-23-2021 14:02-0400 Body temperature 99.3 [degF] Rugen Naples Work Phone: [employer] Work Phone: 06-23-2021 14:020400 Respiratory rate 17 /min Niles Ortiz Work Phone: [facility] Work Phone: Encounters Encounter Date Encounter Type Care Provider Facility Start: 05-08-2024 End: 05-08-2024 ambulatory DEA Vianney SIMS Facility:[facility] Start: 05-08-2024 End: 05-08-2024 Patient encounter procedure DEA Vianney SIMS [facility] Start: 04-24-2024 End: 04-24-2024 ambulatory NILES ORTIZ Not Available Start: 03-06-2024 End: 03-06-2024 Lab Drop off DEA SIMS [facility] Start: 03-06-2024 End: 03-06-2024 ambulatory DEA E LEVI [place] Start: 03-06-2024 End: 03-06-2024 Patient encounter procedure DEA Vianney SIMS [facility] Start: 02-22-2024 End: 02-22-2024 ambulatory DEA SIMS Facility:[facility] Start: 02-22-2024 End: 02-22-2024 Patient encounter procedure DEA Vianney SIMS [facility] Start: 10-12-2023 End: 10-12-2023 ambulatory JULIO FREY Not Available Start: 08-09-2022 End: 08-09-2022 ambulatory Brooklyn Alcala Other [facility] Other Start: 08-09-2022 Office outpatient ne w 20 minutes Brooklyn Alcala [facility] Start: 02-01-[address] NILES ORTIZ Facility: [facility] Start: 01-04-2022 End: 01-05-[address] NILES ORTIZ Facility:[facility] Start: 06-23-2021 Emergency department patient visit NILES ORTIZ [facility] Start: 06-23-2021 End: 06-23-2021 Emergency department patient visit Niles Ortiz Work Phone: [facility] ED Comment on above: COVID-19 (Primary Dx ) Procedures Date Procedure Procedure Detail Performing Clinician Start: 06-23-2021 Radiologic exam chest 2 views Nano Pool DO Work Phone: Start: 10-03-2015 Colonoscopy DEA LEONARD Start: 08-09-2014 Cystourethroscopy [facility] dilation of urethral stricture DEA SIMS Start: 10-03-2013 Colonoscopy DEA LEONARD Start: 10-03-2012 Cholecystectomy LINDA ROWLANDRY Start: 10-03-2010 Thyroidectomy DEA LEVI Start: 10-03-2006 Hysterectomy DEA LEONARD Start: 10-03-1962 Tonsillectomy DEA ROWLANDRY Plan of Treatment Date Care Activity Detail Author Start: 09-07-2028 DTaP/Tdap/Td vaccine (2 - Td or Tdap) DTaP/Tdap/Td vaccine (2 - Td or Tdap) [employer] Phone: Start: 06-03-2021 Influenza vaccination Flu vaccine (# 1) [employer] Phone: Start: 2016 Lipid panel Lipid screen [facility] Work Phone: Start: 10-10-2014 Creatinine measurement Creatinine mo nitoring [facility] [employer] Phone: Start: 10-10-2014 Potassium monitoring Potassium monit oring [employer] Work Phone: Start: 2010 Screening for malign ant neoplasm of breast Breast cancer screen [employer] Phone: Start: 2010 Shingles Vaccine (1 of 2) Shingles Vaccine (1 of 2) [employer] Phone: Start: 2005 Screening for malign ant neoplasm of colon Colon cancer screen colonoscopy [employer] Phone: Start: 1975 HIV screening HIV screen [employer] [facility] Work Phone: Start: 1960 Hepatitis C screening Hepatitis C sc reen [facility] Phone: Immunizations Immunization Date Immunization Notes Care Provider [facility] 07-20-2021 influenza virus vacc ine, unspecified formulation DEA LEVI [facility] 01-08-2021 SARS-CoV-2 (COVID-19 ) mRNA BNT-162 vax DEA LEVI [facility] 12-18-2020 SARS-CoV-2 (COVID-19 ) mRNA BNT-162b2 vax DEA LEVI [facility] 06-05-2020 influenza virus vacc ine, unspecified formulation DEA LEVI [facility] 09-07-2018 influenza virus vacc ine, unspecified formulation Topmission [facility] 09-07-2018 pneumococcal polysaccharide vaccine, 23 valent Topmission [facility] 09-07-2018 tetanus toxoid, redu jerry diphtheria toxoid, and acellular pertussis vaccine, adsorbed Topmission [facility] Payers Date Payer Category Payer Unknown [id number] 2.16.84 [id number] 1960 Unknown [id number] 2.16.84 [id number] 1960 Unknown [id number] 2.16.84 [id number] 1960 Unknown [id number] 2.16.84 [id number] 1960 Unknown [id number] 2.16.8 [id number] 1960 Unknown [id number] 2.16.8 [id number] 1960 Unknown [id number] 2.16.8 [id number] 1960 Unknown [id number] 2.16.8 [id number] 1959 Unknown [id number] [facility] [id number] Social History Date Type Detail Facility Start: 10-10-2013 Tobacco smoking status NHIS Never sm [facility] [employer] Work Phone: Start: 1960 Sex Assigned At Not on file [employer] Work Phone: Exposure to SARS-CoV -2 (event) Yes [employer] Sex Assigned At [facility] Start: 02-22-2024 Tobacco smoking status Never [facility] Functional Status Date Assessment Result Facility 02-22-2024 Functional Status N/A [facility] Hospital Discharge instructions 02-22-2024 Note Date & [...] Follow these instructions at home: Medicines Take cqto-dcd-zluwtle and prescription medicines only as told by [...] provider. Document Revised: 05/01/2021 Document Reviewed: 05/01/2021 efw-[email or web address] Patient Education 2022 [employer]. Follow Up Care 01/16/2024 11:44:07 With:LEVI NICOLE, DEA Faith, URL Address: [address] [place] [address] [address] [place] [address] When: Unknown [facility] Evaluation note 08-09-2022 Note Date & Type [...] weeks for the cough to go away. [facility] Other Hospital Discharge instructions 06-23-2021 Discharge Instr [...] MENTAL STATUS:} IV Access: { RONNI IV ACCESS:601869028} Nursing Mobility/ADLs: Walking {CHP DME ADLs:875961921} Transfer {CHP DME ADLs:044221901} Bathing {CHP DME ADLs:404483730} Dressing {CHP DME ADLs:045281905} Toileting {CHP DME ADLs:758156477} Feeding {P DME ADLs:330244511} Medical Staff Coordinator {P DME ADLs:718679886} Med Delivery { RONNI MED Delivery:061580979} Wound Care Documentation and Therapy: Elimination: Continence: Bowel: {YES / NO:} Bladder: {YES / NO:} Urinary Catheter: {Urinary Catheter:685358168} Colostomy/Ileostomy/Ileal Conduit: {YES / NO:} Date of Last BM: No intake or output data in the 24 hours ending 06/23/21 1601 No intake/output data recorded. Safety Concerns: { RONNI Safety Concerns:270420338} Impairments/Disabilities: {[facility] Impairments/Disabilities:33332 8273} Nutrition Therapy: Current Nutrition Therapy: {[facility] Diet List:606548064} Routes of Feeding: {[facility] Other Feedings:486398577} Liquids: {[facility] liquid thickness:67204} Daily Fluid Restriction: {[facility] DME Yes amt example:577943433} Last Modified Barium Swallow with Video (Video Swallowing Test): {Done Not Done Date:818734704} Treatments at the Time of Hospital Discharge: Respiratory Treatments: Oxygen Therapy: {Therapy; copd oxygen:49774} Ventilator: {[facility] Vent List:875219892} Rehab Therapies: {THERAPEUTIC INTERVENTION:8601817818} Weight Bearing Status/Restrictions: {[facility] Weight Bearin} Other Medical Equipment (for information only, NOT a DME order): {EQUIPMENT:501628440} Other Treatments: Patient's personal belongings (please select all that are sent with patient): {[facility] DME Belongings:686543095} RN SIGNATURE: {Esignature:053007037} CASE MANAGEMENT/SOCIAL WORK SECTION Inpatient Status Date: Readmission Risk Assessment Score: Readmission Risk Risk of Unplanned Readmission: 0 Discharging to Facility/ Agency Name: Address: Phone: Fax: Dialysis Facility (if applicable) Name: Address: Dialysis Schedule: Phone: 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 Update Admission H&P: {CHP DME Changes in HandP:109108552} PHYSICIAN SIGNATURE: {Esignature:276730272} The following attachments cannot be sent through Care Everywhere.Coronavirus Disease (COVID-19): General Info (Northern Irish)documented in this encounter [employer] Phone: Evaluation + Plan note Note Date & Type Note Facility Evaluation + Plan note Future Appointments Appointment Date:05/01/2024 08:40:00 AM Scheduled Provider:DEA SIMS PA-C Location:[facility] Appointment Type:URO Office Visit [facility] Evaluation + Plan note Note Date & Type Note Facility Evaluation + Plan note Future Appointments Appointment Date:05/01/2024 08:40:00 AM Scheduled Provider:DEA SIMS PA-C Location:[facility] Appointment Type:URO Office Visit Diagnostic Tests PendingUrine Culture 03/06/24 [facility] Evaluation note Note Date & Type Note Facility Evaluation note Diagnosis COVID-19- Primary documented in this encounter [employer] Phone: History general Narrative - Reported Note Date & Type Note Facility History general Narrative - Reported Type Medical History Hypertension Medical History type II diabetes Medical History Gout [facility] Other Hospital course Narrative Note Date & Type Note Facility Hospital course Narrative No data available for this section [facility] Hospital Discharge instructions Note Date & Type Note Facility Hospital Discharge instructions No data available for this section [facility] [employer] Progress note Note Date & Type Note Facility Progress note No data available for this section [facility] Summary Purpose Family History No Family History Records FoundNo Family History Records Found No data available for this section No data available for this section No data available for this section No Family History Records FoundNo Family History Records FoundNo Family History Records Found No data available for this section No Family History Records Found Advance Directives No [...] dose 1623 (Given - Provid er: Brooklyn White, PENELOPE) INFORMATION SOURCE (unrecogn ized section and content) DATE CREATED AUTHOR 06/27/2021 [facility] DATE CREATED AUTHOR AUTHOR'S ORGANIZ ATION 03/25/2022 [facility] DATE CREATED AUTHOR AUTHOR'S ORGANIZ ATION 03/09/2024 Brown Mookie [facility] DATE CREATED AUTHOR AUTHOR'S ORGANIZ ATION 03/10/2024 Brown Dyer [facility] DATE CREATED AUTHOR AUTHOR'S ORGANIZ ATION 04/26/[address] [facility] DATE CREATED AUTHOR AUTHOR'S ORGANIZ ATION 05/11/2024 [facility] Patient Care team informatio n (unrecognized section and content) Personnel Name: NILES ORTIZ MD Address: Address: [address] [place] [address] FOR RECORDS PERTAINING TO PATIENTS WHO ARE [...] BE BASED ON THE PRIMARY CLINICAL RECORDS. [facility] [employer] provides no warranty or guarantee of the accuracy or completeness of information in this document.
[2024-07-06 10:54] VITALS: BP 148/87; PULSE 98; TEMP 37.7; O2SAT 96; BMI 42.4
--- NOTE | 2024-07-06 11:19 | XR_ITS ---
The [address] [address] Patient Name: AIRAM HASTINGS MRN: [id number] date: 1960 Sex: F Assigned Patient Location: ER Current Patient Location: ER Accession/Order Number: [id number] Exam Date: 07/06/2024 11:30 Report Date: 07/06/2024 11:55 At the request of: SARITA ALVARADO Procedure: XR chest 1V EXAMINATION: XR chest 1V HISTORY: cough COMPARISON: XR chest 09/29/2020 FINDINGS: LUNGS: No significant pulmonary parenchymal abnormalities. VASCULATURE: No increased pulmonary vasculature. PLEURA: No pneumothorax, effusion, or pleural thickening. CARDIAC: No cardiomegaly or cardiac silhouette abnormality. MEDIASTINUM: Prior sternotomy. No abnormal widening. BONES: No fracture or visible bone lesion. OTHER: Negative. XR/XR chest 1V IMPRESSION: 1. No acute cardiopulmonary process. Electronically authenticated by: KEMI HOYT Date: 07/06/2024 11:55
--- NOTE | 2024-07-06 11:20 | ED.GENADUL1 ---
HPI HPI - General Adult General Chief complaint: Fever Stated complaint: URTI COMPLAINTS Time Seen by Provider: 07/06/24 10:58 Source: patient Mode of arrival: walk-in Limitations: no limitations History of Present Illness HPI narrative: 63-year-old female presents for cough and fever. Her cough has been nonproductive. She has also had some dysuria and does not complain of abdominal pain or back pain. She has had the symptoms for a week. Related Data Home Medications ?Medication ?Instructions ?Recorded ?Confirmed allopurinol 300 mg tablet 300 mg PO QDAY 07/06/24 07/06/24 amlodipine 10 mg tablet 10 mg PO QDAY 07/06/24 07/06/24 atorvastatin 80 mg tablet 80 mg PO QDAY 07/06/24 07/06/24 empagliflozin 25 mg tablet 25 mg PO QDAY 07/06/24 07/06/24 (Jardiance) insulin glargine U-300 conc 300 36 unit subcut Q24H 07/06/24 07/06/24 unit/mL (1.5 mL) subcutaneous pen ([employer] SoloStar U-300 Insulin) lisinopril 20 1 tab PO BID 07/06/24 07/06/24 mg-hydrochlorothiazide 12.5 mg tablet metoprolol tartrate 100 mg tablet 100 mg PO Q12H 07/06/24 07/06/24 semaglutide 14 mg tablet (Rybelsus) 14 mg PO QDAY 07/06/24 07/06/24 sertraline 50 mg tablet 50 mg PO Q24H 07/06/24 07/06/24 Previous Rx's ?Medication ?Instructions ?Recorded cephalexin 500 mg capsule 500 mg PO TID 7 days #21 caps 07/06/24 ondansetron 4 mg disintegrating 4 mg PO Q6H PRN nausea and 07/06/24 tablet vomiting #20 tabs Allergies Allergy/AdvReac Type Severity Reaction Status Date / Time ciprofloxacin [From Cipro] Allergy Hives Verified 07/06/24 10:54 Penicillins Allergy Hives Verified 07/06/24 10:54 Opioid HPI Opioid Management Most Recent Opioid Data: Last DEC Pain Assessment 07/06/24 12:28 Review of Systems ROS Narrative A ten point review of systems is negative except as noted above. PFSH PFSH Social History Little interest or pleasure in doing things: several days Feeling down, depressed, or hopeless: not at all Exam Narrative Exam Narrative: Nurses note and vital signs reviewed and patient is not hypoxic. General: The patient appears in no apparent distress. Patient is resting comfortably on cart. Skin: Warm, dry, no pallor noted. There is no rash noted. Head: Normocephalic, atraumatic Eye: Normal conjunctiva, no drainage Ears, Nose, Mouth, and Throat: oral mucosa is moist. Nares patent. Cardiovascular: Regular Rate and Rhythm Respiratory: Patient is in no distress, no accessory muscle use, lungs are clear to auscultation, no wheezing, rales or rhonchi GI: no tenderness to palpation, no masses appreciated. No rebound, guarding, or rigidity noted. Musculoskeletal: The patient has no evidence of calf tenderness, no pitting edema, symmetrical pulses noted bilaterally Neurological: A&O, normal speech Psychiatric: Cooperative Constitutional Vital Signs, click to edit/add: Last Vital Signs Temp 100 F 07/06/24 12:28 Pulse 94 H 07/06/24 12:19 Resp 18 07/06/24 12:19 BP 130/87 07/06/24 12:19 Pulse Ox 95 07/06/24 12:19 O2 Del Method Room Air 07/06/24 10:54 Course Vital Signs Vital signs: Vital Signs Temperature 100 F 07/06/24 10:54 Pulse Rate 98 H 07/06/24 10:54 Respiratory Rate 16 07/06/24 10:54 Blood Pressure 148/87 H 07/06/24 10:54 Pulse Oximetry 96 07/06/24 10:54 Oxygen Delivery Method Room Air 07/06/24 10:54 Temperature 100 F 07/06/24 12:28 Pulse Rate 94 H 07/06/24 12:19 Respiratory Rate 18 07/06/24 12:19 Blood Pressure 130/87 07/06/24 12:19 Pulse Oximetry 95 07/06/24 12:19 Oxygen Delivery Method Room Air 07/06/24 10:54 Medical Decision Making MDM Narrative Medical decision making narrative: Chest x-ray, influenza, and COVID test are negative. She was found to have UTI and a CAT scan was not consistent with pyelonephritis. She was given IV Rocephin and was feeling improved. She was given the option of being admitted to the hospital versus discharge home and she prefers to go home. She was advised to return if symptoms worsen or she develop new symptoms. Treatment diagnosis and follow-up were discussed with the patient. Differential Diagnosis Differential Diagnosis: Pneumonia, COVID, influenza, UTI, pyelonephritis Lab Data Lab results reviewed: Yes I reviewed the patient's lab results Labs: Lab Results 07/06/24 07/06/24 07/06/24 Range/Units 11:10 11:15 11:28 WBC 9.6 (4.0-11.0) 10^3/uL RBC 4.42 (4.20-5.40) 10^6/uL Hgb 13.5 (12.0-16.0) g/dL Hct 40.1 (36.0-48.0) % MCV 90.7 (81.0-99.0) fL MCH 30.5 (26.7-34.0) pg MCHC 33.7 (29.9-35.2) g/dL RDW 13.6 (11.0-15.0) % Plt Count 162 (150-450) 10^3/uL MPV 12.1 (9.5-13.5) fL Neut % (Auto) 70.4 (43.0-75.0) % Lymph % (Auto) 18.6 L (20.5-60.0) % [place] % (Auto) 8.3 (1.7-12.0) % Eos % (Auto) 2.0 (0.9-7.0) % Baso % (Auto) 0.4 (0.2-2.0) % Neut # (Auto) 6.8 H (1.4-6.5) 10^3/uL Lymph # (Auto) 1.8 (1.2-3.8) 10^3/uL [place] # (Auto) 0.8 (0.3-0.8) 10^3/uL Eos # (Auto) 0.2 (0.0-0.7) 10^3/uL Baso # (Auto) 0.0 (0.0-0.1) 10^3/uL Abs Immat Gran (auto) 0.03 (0.00-0.03) 10^3/uL Imm/Tot Granulo (auto) 0.3 (0.0-0.5) % Sodium 136 (136-145) mmol/L Potassium 4.4 (3.5-5.1) mmol/L Chloride 102 (98-107) mmol/L Carbon Dioxide 23.4 (21.0-32.0) mmol/L Anion Gap 15.0 BUN 17.0 (7.0-18.0) mg/dL Creatinine 0.95 (0.55-1.02) mg/dL Est GFR ( Amer) >60 (>=60 mL/min/1.73m^2) Est GFR (Non-Af Amer) 59 L (>=60 mL/min/1.73m^2) BUN/Creatinine Ratio 17.9 Glucose 121 H (74-106) mg/dL Calcium 9.6 (8.5-10.1) mg/dL Urine Color Yellow (YELLOW) Urine Clarity Cloudy A (CLEAR) Urine pH 6.0 (5.0-9.0) Ur Specific [place] 1.015 (1.005-1.025) Urine Protein 30 A (NEG/TRACE) mg/dL Urine Glucose (UA) >=1000 A (NEGATIVE) mg/dL Urine Ketones Negative (NEGATIVE) mg/dL Urine Occult Blood Moderate A (NEGATIVE) Urine Nitrite Positive A (NEGATIVE) Urine Bilirubin Negative (NEGATIVE) Urine Urobilinogen 0.2 (0.2-1.0) EU/dL Ur Leukocyte Esterase Small A (NEGATIVE) Urine RBC 2-5 A (0-2) #/HPF Urine WBC >100 A (NONE SEEN) #/HPF Ur Squamous Epith Cells Few A (NONE/RARE) #/LPF Urine Crystals None seen (None Seen) #/HPF Urine Bacteria Moderate A (NONE SEEN) #/HPF Urine Casts None seen (NONE SEEN) #/LPF Urine Mucus None seen (NONE SEEN) Ur Culture Indicated? Yes Influenza Type A Ag Negative Influenza Type B Ag Negative SARS-CoV-2 Ag (CV2AG) Negative (NEGATIVE) Imaging Data CT scan - abdomen: Radiologist's impression: ITS Impressions Chest X-Ray 07/06/24 11:19 IMPRESSION: 1. No acute cardiopulmonary process. Electronically authenticated by: KEMI HOYT Date: 07/06/2024 11:55 Abdomen/Pelvis CT 07/06/24 12:37 IMPRESSION: 1. Findings likely represent urinary tract infection including cystitis, ascending left urinary tract infection and probable left hydronephrosis. 2. Retroperitoneal lymphadenopathy on the left could be reactive to recurrent urinary tract infections although is technically indeterminate. Electronically authenticated by: KIARA KASPER Date: 07/06/2024 13:28 Discharge Plan Discharge Chief Complaint: Fever Clinical Impression: Urinary tract infection, Viral URI Patient Disposition: Home, Self-Care Time of Disposition Decision: 13:57 Condition: Good Mode of Transportation: Private Vehicle Prescriptions / Home Meds: New cephalexin 500 mg capsule 500 mg PO TID 7 Days Qty: 21 0RF ondansetron 4 mg tablet,disintegrating 4 mg PO Q6H PRN (Reason: nausea and vomiting) Qty: 20 0RF No Action allopurinol 300 mg tablet 300 mg PO QDAY amlodipine 10 mg tablet 10 mg PO QDAY atorvastatin 80 mg tablet 80 mg PO QDAY Jardiance 25 mg tablet 25 mg PO QDAY insulin glargine U-300 conc [Tou[employer] SoloStar U-300 Insulin] 300 unit/mL (1.5 mL) insulin pen 36 unit SUBCUT Q24H lisinopril-hydrochlorothiazide 20-12.5 mg tablet 1 tab PO BID metoprolol tartrate 100 mg tablet 100 mg PO Q12H Rybelsus 14 mg tablet 14 mg PO QDAY sertraline 50 mg tablet 50 mg PO Q24H Print Language: Kinyarwanda Instructions: Urinary Tract Infection in Women (DC), Upper Respiratory Infection (ED) Referrals: MARK ORTIZ [Primary Care Provider] - 1 week
[2024-07-06 11:30] LABS: Basophils Percent Auto 0.4 % (0.2-2.0); Eosinophils Absolute Auto 0.2 10^3/uL (0.0-0.7); Hematocrit 40.1 % (36.0-48.0); Hemoglobin 13.5 g/dL (12.0-16.0); Immature Granulocytes Abs Auto 0.03 10^3/uL (0.00-0.03); Immature Granulocytes Pct Auto 0.3 % (0.0-0.5); Lymphocytes Absolute Auto 1.8 10^3/uL (1.2-3.8); Lymphocytes Percent Auto 18.6 % (20.5-60.0); Mean Corpuscular HGB Conc 33.7 g/dL (29.9-35.2); Mean Corpuscular Hemoglobin 30.5 pg (26.7-34.0); Mean Corpuscular Volume 90.7 fL (81.0-99.0); Mean Platelet Volume 12.1 fL (9.5-13.5); Monocytes Absolute Auto 0.8 10^3/uL (0.3-0.8); Monocytes Percent Auto 8.3 % (1.7-12.0); Neutrophils Absolute Auto 6.8 10^3/uL (1.4-6.5); Neutrophils Percent Auto 70.4 % (43.0-75.0); Platelet Count 162 10^3/uL (150-450); Red Blood Count 4.42 10^6/uL (4.20-5.40); Red Cell Distribution Width 13.6 % (11.0-15.0); White Blood Count 9.6 10^3/uL (4.0-11.0)
[2024-07-06 11:39] LABS: BUN Creatinine Ratio 17.9; Calcium 9.6 mg/dL (8.5-10.1); Chloride 102 mmol/L (98-107); Estimated GFR (African America >60 (>=60 mL/min/1.73m^2); Estimated GFR (Non-African Ame 59 (>=60 mL/min/1.73m^2); Glucose 121 mg/dL (74-106); Potassium 4.4 mmol/L (3.5-5.1); Sodium 136 mmol/L (136-145)
[2024-07-06 11:44] LABS: Bilirubin Urine NEGATIVE (NEGATIVE); Blood Urine MODERATE (NEGATIVE); Color Urine YELLOW (YELLOW); Glucose Urine UA >=1000 mg/dL (NEGATIVE); Ketones Urine NEGATIVE (NEGATIVE); Leukocyte Esterase Urine SMALL (NEGATIVE); Nitrite Urine POSITIVE (NEGATIVE); Protein Urine 30 mg/dL (NEG/TRACE); Specific Gravity Urine 1.015 (1.005-1.025); Urobilinogen Urine 0.2 EU/dL (0.2-1.0)
[2024-07-06 11:45] LABS: Carbon Dioxide 23.4 mmol/L (21.0-32.0)
[2024-07-06 11:55] LABS: Influenza Virus A Antigen Negative; Influenza Virus B Antigen Negative; Internal Control Within Normal Limits; SARS-CoV-2 Ag NEGATIVE (NEGATIVE)
[2024-07-06 11:58] LABS: Clarity Urine CLOUDY (CLEAR)
[2024-07-06 11:59] LABS: Bacteria Urine MODERATE #/HPF (NONE SEEN); Cast Seen? NONE SEEN #/LPF (NONE SEEN); Crystals Seen? None Seen #/HPF (None Seen); Mucus Urine NONE SEEN (NONE SEEN); Squamous Epithelial Cell Urine FEW #/LPF (NONE/RARE); Urine Culture Indicated YES; WBC Urine >100 #/HPF (NONE SEEN)
[2024-07-06 12:19] VITALS: BP 130/87; PULSE 94; O2SAT 95
[2024-07-06 12:28] VITALS: TEMP 37.7
[2024-07-06] MEDS: ACETAMINOPHEN 325 MG TABLET 650 MG PO (12:28)
--- NOTE | 2024-07-06 12:37 | CT_ITS ---
The [address] [address] Patient Name: AIRAM HASTINGS MRN: [id number] date: 1960 Sex: F Assigned Patient Location: ER Current Patient Location: ER Accession/Order Number: [id number] Exam Date: 07/06/2024 13:00 Report Date: 07/06/2024 13:28 At the request of: SARITA ALVARADO Procedure: CT abdomen pelvis w con EXAM: CT scan of the abdomen and pelvis using 100 mL of IV iodinated contrast. Dose reduction technique used: Automated exposure control and/or adjustment of the mA and/or kV according to patient size and/or use of iterative reconstruction technique. REASON FOR EXAM: Has UTI, rule out pyelo COMPARISON: None FINDINGS: Bladder wall thickening. Suggestion of urothelial thickening along the course of the left ureter. Heterogenous enhancement pattern in the left kidney. Retroperitoneal lymphadenopathy, most prominently on the left adjacent to the left kidney. Bilateral renal parenchymal scarring, more evident on the left with left renal parenchymal atrophy. Small right renal cyst. Cholecystectomy. Colonic diverticulosis. Duodenal diverticulum. Grade 1 anterolisthesis of L4 on L5. Normal appendix. No free fluid in the abdomen or pelvis. No free intraperitoneal air. No dilated or thickened loops of small bowel or colon. No hydronephrosis or obstructing renal or ureteral calculi. Liver, pancreas, spleen, bilateral kidneys, and bilateral adrenal glands are otherwise unremarkable. No lymphadenopathy in the abdomen or pelvis. Remainder unremarkable. CT/CT abdomen pelvis w con IMPRESSION: 1. Findings likely represent urinary tract infection including cystitis, ascending left urinary tract infection and probable left hydronephrosis. 2. Retroperitoneal lymphadenopathy on the left could be reactive to recurrent urinary tract infections although is technically indeterminate. Electronically authenticated by: KIARA KSAPER Date: 07/06/2024 13:28
[2024-07-06] MEDS: ONDANSETRON PF 4 MG/2 ML VIAL IV (12:40)
[2024-07-06] MEDS: CEFTRIAXONE 1,000 MG in 0.9 % SODIUM CHLORIDE 50 ML 100 MG IV (12:49)
[2024-07-06 14:13] VITALS: BP 116/64; PULSE 80; O2SAT 97
== END 2024-07-06 14:26 | disposition home or self-care (01) ==
PROVIDERS: Emergency Provider Emergency Medicine; PCP Family Medicine
DX: N39.0 Urinary tract infection, site not specified (principal); J06.9 Acute upper respiratory infection, unspecified; Z20.822 Contact with and (suspected) exposure to COVID-19
CPT/HCPCS: 36415; 71045; 74177; 80048; 81001; 85025; 87086; 87804; 87811; 96365; 96375; 99285; J0696; J2405; Q9967

== ENCOUNTER 2024-09-27 16:09 | Emergency (ER) | payer BC, SELFPAY ==
[2024-09-27] VITALS (8 sets, daily range): BP systolic 113–136; BP diastolic 62–74; PULSE 69–76; TEMP 36.7; O2SAT 95–97; BMI 41.0
--- NOTE | 2024-09-27 16:22 | ECG_ITS ---
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
--- NOTE | 2024-09-27 16:23 | ED.GENADUL1 ---
HPI HPI - General Adult General Chief complaint: Back Pain/Injury Stated complaint: SHOULDER/BACK PAIN Time Seen by Provider: 09/27/24 16:16 Source: patient Mode of arrival: walk-in History of Present Illness HPI narrative: Patient is a 64-year-old female with a history of insulin-dependent diabetes who presents to the emergency department for thoracic back pain of the left scapula for the last several days. She denies fevers, cough or congestion. She admits to some exertional dyspnea but has not had any chest pain. She denies any specific mechanism of injury or trauma. She does have some pain to the left trapezius area that is worse when she moves her head at the neck. She denies any numbness or tingling, she is not anticoagulated. Pain is not worse with movement of the arms. Related Data Home Medications ?Medication ?Instructions ?Recorded ?Confirmed allopurinol 300 mg tablet 300 mg PO QDAY 07/06/24 07/06/24 amlodipine 10 mg tablet 10 mg PO QDAY 07/06/24 07/06/24 atorvastatin 80 mg tablet 80 mg PO QDAY 07/06/24 07/06/24 empagliflozin 25 mg tablet 25 mg PO QDAY 07/06/24 07/06/24 (Jardiance) insulin glargine U-300 conc 300 36 unit subcut Q24H 07/06/24 07/06/24 unit/mL (1.5 mL) subcutaneous pen ([employer] SoloStar U-300 Insulin) lisinopril 20 1 tab PO BID 07/06/24 07/06/24 mg-hydrochlorothiazide 12.5 mg tablet metoprolol tartrate 100 mg tablet 100 mg PO Q12H 07/06/24 07/06/24 semaglutide 14 mg tablet (Rybelsus) 14 mg PO QDAY 07/06/24 07/06/24 sertraline 50 mg tablet 50 mg PO Q24H 07/06/24 07/06/24 Previous Rx's ?Medication ?Instructions ?Recorded cephalexin 500 mg capsule 500 mg PO TID 7 days #21 caps 07/06/24 ondansetron 4 mg disintegrating 4 mg PO Q6H PRN nausea and 07/06/24 tablet vomiting #20 tabs hydrocodone 5 mg-acetaminophen 325 1 tab PO Q6H PRN pain 3 days #12 09/27/24 mg tablet tabs methocarbamol 750 mg tablet 750 mg PO TID PRN pain #20 tabs 09/27/24 naproxen sodium 550 mg tablet 550 mg PO BID PRN pain #10 tabs 09/27/24 Allergies Allergy/AdvReac Type Severity Reaction Status Date / Time ciprofloxacin (From Cipro) Allergy Hives Verified 07/06/24 10:54 Penicillins Allergy Hives Verified 07/06/24 10:54 Opioid HPI Opioid Management Most Recent Opioid Data: No Data to Display Review of Systems ROS Constitutional Denies: fever or chills Ears, nose, mouth, and throat Denies: throat pain or nasal congestion Cardiovascular Denies: chest pain Respiratory Reports: shortness of breath Gastrointestinal Denies: abdominal pain, nausea or vomiting Musculoskeletal Denies: back pain Integumentary/Breast Denies: rash Hematologic/Lymphatic Denies: easy bruising or easy bleeding PFSH PFSH Social History Little interest or pleasure in doing things: not at all Feeling down, depressed, or hopeless: not at all Exam Narrative Exam Narrative: Gen.: Awake, alert, in no distress Head: Normocephalic, atraumatic ENT: Moist mucous membranes Respiratory: No respiratory distress, lungs clear bilaterally Cardio: Regular rate and rhythm Extremities: Moves extremities equally Psych: Normal mood and affect Neuro: No focal neuro deficit Skin: Warm, dry, intact Constitutional Vital Signs, click to edit/add: Last Vital Signs Temp 98.1 F 09/27/24 16:14 Pulse 69 09/27/24 17:21 Resp 17 09/27/24 17:21 BP 113/62 09/27/24 17:21 Pulse Ox 97 09/27/24 17:21 O2 Del Method Room Air 09/27/24 16:14 Course Vital Signs Vital signs: Vital Signs Temperature 98.1 F 09/27/24 16:14 Pulse Rate 76 09/27/24 16:14 Respiratory Rate 18 09/27/24 16:14 Blood Pressure 136/74 09/27/24 16:14 Pulse Oximetry 95 09/27/24 16:14 Oxygen Delivery Method Room Air 09/27/24 16:14 Temperature 98.1 F 09/27/24 16:14 Pulse Rate 69 09/27/24 17:21 Respiratory Rate 17 09/27/24 17:21 Blood Pressure 113/62 09/27/24 17:21 Pulse Oximetry 97 09/27/24 17:21 Oxygen Delivery Method Room Air 09/27/24 16:14 Medical Decision Making MDM Narrative Medical decision making narrative: Labs show unremarkable troponin, D-dimer and no evidence of other acute process. Lipase is mildly elevated, however not 3 times the upper limit of normal and the patient has no abdominal pain, nausea or vomiting so I do not feel this represents acute pancreatitis. Exam is consistent with scapular pain, as the pain changes with movement of the head and neck, it may be musculoskeletal and patient was counseled on this. If her symptoms change or worsen she should be reevaluated. She received IV Toradol with significant improvement of her pain from a 06/12 to /10. She is hemodynamically stable with unremarkable vital signs and breathing easily at discharge. Short course of analgesics and muscle relaxants given with NSAIDs for home. Follow-up PCP and return to the ER if symptoms change or worsen SUPERVISED APC VISIT, PHYSICIAN ATTESTATION: Based on the medical record the care appears appropriate. ? Medical Records Medical records reviewed: Yes I reviewed the patient's medical records Lab Data Lab results reviewed: Yes I reviewed the patient's lab results Labs: Lab Results 09/27/24 Range/Units 16:35 WBC 12.8 H (4.0-11.0) 10^3/uL RBC 4.48 (4.20-5.40) 10^6/uL Hgb 13.5 (12.0-16.0) g/dL Hct 41.6 (36.0-48.0) % MCV 92.9 (81.0-99.0) fL MCH 30.1 (26.7-34.0) pg MCHC 32.5 (29.9-35.2) g/dL RDW 14.4 (11.0-15.0) % Plt Count 214 (150-450) 10^3/uL MPV 10.7 (9.5-13.5) fL Neut % (Auto) 59.7 (43.0-75.0) % Lymph % (Auto) 27.0 (20.5-60.0) % [place] % (Auto) 7.6 (1.7-12.0) % Eos % (Auto) 4.6 (0.9-7.0) % Baso % (Auto) 0.9 (0.2-2.0) % Neut # (Auto) 7.7 H (1.4-6.5) 10^3/uL Lymph # (Auto) 3.5 (1.2-3.8) 10^3/uL [place] # (Auto) 1.0 H (0.3-0.8) 10^3/uL Eos # (Auto) 0.6 (0.0-0.7) 10^3/uL Baso # (Auto) 0.1 (0.0-0.1) 10^3/uL Abs Immat Gran (auto) 0.03 (0.00-0.03) 10^3/uL Imm/Tot Granulo (auto) 0.2 (0.0-0.5) % PT 10.4 (9.0-11.6) sec INR 0.98 D-Dimer 0.40 (<=0.59) mg/L FEU Sodium 142 (136-145) mmol/L Potassium 4.0 (3.5-5.1) mmol/L Chloride 105 (98-107) mmol/L Carbon Dioxide 28.9 (21.0-32.0) mmol/L Anion Gap 12.1 BUN 22.0 H (7.0-18.0) mg/dL Creatinine 1.34 H (0.55-1.02) mg/dL Est GFR ( Amer) 48 L (>=60 mL/min/1.73m^2) Est GFR (Non-Af Amer) 40 L (>=60 mL/min/1.73m^2) BUN/Creatinine Ratio 16.4 Glucose 99 (74-106) mg/dL Calcium 9.1 (8.5-10.1) mg/dL Total Bilirubin 0.4 (0.2-1.0) mg/dL AST 33 (15-37) U/L ALT 31 (14-59) U/L Alkaline Phosphatase 97 (46-116) U/L Troponin I High Sens 5.3 (4.0-51.3) pg/mL Total Protein 7.3 (6.4-8.2) g/dL Albumin 3.7 (3.4-5.0) g/dL Globulin 3.6 g/dL Albumin/Globulin Ratio 1.0 Lipase 128.0 H (16.0-77.0) U/L Imaging Data Chest x-ray: Attestation: I have reviewed the pertinent imaging results. ECG Data Attestation: I personally reviewed and interpreted this ECG as follows: (Normal sinus rhythm at a rate of 70, no acute ST elevation or ectopy. EKG reviewed by attending physician) Discharge Plan Discharge Chief Complaint: Back Pain/Injury Clinical Impression: Acute thoracic back pain Patient Disposition: Home, Self-Care Time of Disposition Decision: 18:10 Condition: Good Prescriptions / Home Meds: New hydrocodone-acetaminophen 5-325 mg tablet 1 tab PO Q6H PRN (Reason: pain) 3 Days Qty: 12 0RF Rx Instructions: DX: M54.5 methocarbamol 750 mg tablet 750 mg PO TID PRN (Reason: pain) Qty: 20 0RF naproxen sodium 550 mg tablet 550 mg PO BID PRN (Reason: pain) Qty: 10 0RF No Action allopurinol 300 mg tablet 300 mg PO QDAY amlodipine 10 mg tablet 10 mg PO QDAY atorvastatin 80 mg tablet 80 mg PO QDAY Jardiance 25 mg tablet 25 mg PO QDAY insulin glargine U-300 conc [[employer] SoloStar U-300 Insulin] 300 unit/mL (1.5 mL) insulin pen 36 unit SUBCUT Q24H lisinopril-hydrochlorothiazide 20-12.5 mg tablet 1 tab PO BID metoprolol tartrate 100 mg tablet 100 mg PO Q12H Rybelsus 14 mg tablet 14 mg PO QDAY sertraline 50 mg tablet 50 mg PO Q24H cephalexin 500 mg capsule 500 mg PO TID 7 Days Qty: 21 0RF ondansetron 4 mg tablet,disintegrating 4 mg PO Q6H PRN (Reason: nausea and vomiting) Qty: 20 0RF Print Language: Luxembourger Instructions: Thoracic Pain (ED) Referrals: MARK ORTIZ [Primary Care Provider] - 1 week
--- OUTSIDE RECORDS SUMMARY | 2024-09-27 16:25 | XMS_ITS | CCD ---
Author Organization [facility] Care Team Providers Care Sidehand Name Role Phone Niles Ortiz Primary Care Provider [phone] NILES ORTIZ Primary Care Unavailable ANGEL, DR FLORES Primary Care Unavailable ANGEL, DR FLORES Attending Unavailable ANGEL, DR FLORES Admitting Unavailable ANGEL, DR FLORES Attending Unavailable ANGEL, DR FLORES Admitting Unavailable ANGEL, DR FLORES Primary Care Unavailable Brooklyn Alcala Unavailable NILES ORTIZ Primary Care Physician [phone] DEA SIMS Attending Unavailable DEA SIMS Attending Unavailable DEA SIMS Attending Unavailable DEA SIMS Admitting Unavailable DEA SIMS Attending Unavailable JULIO FREY Attending Unavailable NILES ORTIZ Attending Unavailable ROBERT DOOLEY Attending Unavailable Niles Ortiz MD Primary Care Provider [phone] Niles Ortiz MD Unavailable Allergies Allergy Classification Reported Allergen(s) Allergy Type Date of Onset Reaction(s) Facility (6 sources) Penicillins; Translations: [penicillins] Propensity to adverse reactions to drug 10-10-19 14 Difficulty breathing (finding), Eruption of skin (disorder) [facility] (1 source) Ciprofloxacin Drug Allergy 01-07-20 14 [facility] (1 source) Penicillins Drug allergy (disorder) 01-07-20 14 [facility] (1 source) Sulfonamides (Antibiotic) Drug allergy (disorder) 01-07-20 14 [facility] (1 source) Misc-Food; Translations: [Misc-Food] Food allergy (disorder) 02-20-20 14 [facility] (1 source) Cat/Feline Product Derivatives Drug allergy (disorder) 02-20-20 14 [facility] (9 sources) Ciprofloxacin; Translations: [ciprofloxacin] Drug Allergy 03-13-20 23 hives, Weal (disorder) [facility] (1 source) Penicillin V Drug Allergy hives [facility] (3 sources) Ciprofloxacin Drug Allergy 03-13-20 23 [facility] (3 sources) Penicillins Drug Allergy 03-13-20 23 [facility] Medications Current Medications Medication Drug Class(es) Dates Sig (Normalized) Sig (Original) acetaminophen 325 mg / HYDROcodone bitartrate 5 mg oral tablet (1 source) Opioid Agonist Start: 10-10-2013 take 1 tablet by mouth every six hours as needed for pain HYDROcodone-aceta minophen (NORCO) 5-325 MG per tablet Take 1 tablet by mouth every 6 hours as needed for Pain (Avoid driving and alcohol use with taking this medication, may cause fatigue). 12 tablet 0 10/10/2013 Active [id number] 200 actuat albuterol 0.09 mg/actuat metered dose inhaler (4 sources) beta2-Adrenergic Agonist Start: 08-09-2022 take 2 puff(s) by inhalation every four hours as needed Albuterol Sulfate HFA 108 (90 Base) MCG/ACT 2 puffs as needed Inhalation every 4 hrs Aug, Active take 2 puff(s) by in halation every four hours for wheezing albuterol HFA (Proventil HFA) 90 mcg/act inhaler Inhale 2 puffs every 4 (four) hours if needed for wheezing. Active Albuterol (Eqv-ProAir HFA) 90 mcg/inh inhalation aerosol (4 sources) Start: 02-22-2024 take 2 puff(s) by inhalation every four hours Albuterol (Eqv-ProAir HFA) 90 mcg/inh inhalation aerosol 2 puff(s), Inhalation, q4hr Start Date: 02/22/24 Status: Ordered allopurinol 300 mg oral tablet (8 sources) Xanthine Oxidase Inhibitor Start: 02-22-2024 take 1 tablet by mouth once daily allopurinol (Zyloprim) 300 MG tablet Indications: Acute cystitis with hematuria Take 1 tablet by mouth once daily 30 tablet 3 03/26/2024 Active Allopurinol Acti ve amLODIPine 10 mg oral tablet (7 sources) Dihydropyridine Calcium Channel Alexandro Start: 02-22-2024 take 1 tablet by mouth once daily amLODIPine (Norvasc) 10 MG tablet Indications: Benign essential hypertension (CMS/HCC) Take 1 tablet by mouth once daily 30 tablet 3 03/26/2024 Active amLODIPine Benzoate (1 source) amLODIPine Benzoate Active aspirin 81 mg delayed release oral tablet (8 sources) Platelet Aggregation Inhibitor, Nonsteroidal Anti-inflammatory Drug Start: 02-22-2024 take 1 tablet by mouth once daily aspirin 81 mg Oral EC Tab 81 mg = 1 tab(s), Oral, Daily Start Date: 02/22/24 Status: Ordered ASPIRIN 81 PO Ta ke by mouth. Active Baby Aspirin Act jett atorvastatin 80 mg oral tablet (8 sources) HMG-CoA Reductase Inhibitor Start: 02-22-2024 End: 04-19-2025 take 1 tablet by mouth once daily atorvastatin (Lipitor) 80 MG tablet Indications: Hypertriglyceridemia (CMS/HCC) Take 1 tablet (80 mg) by mouth Daily 90 tablet 3 04/24/2024 04/19/2025 Active Lipitor Active azithromycin 250 mg oral tablet [...] 5. 1 packet 0 06/23/2021 06/27/2021 Active cephalexin 500 mg oral capsule (2 sources) Cephalosporin Antibacterial Start: 07-06-2024 cephalexin (Keflex) 500 MG capsule 07/06/2024 Active empagliflozin 25 mg oral tablet (8 sources) Sodium-Glucose Cotransporter 2 Inhibitor Start: 02-22-2024 take 1 tablet by mouth once daily empagliflozin (Jardiance) 25 MG Indications: 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) Take 1 tablet (25 mg) by mouth 1 (one) time each day at the same time 90 tablet 3 04/24/2024 Active Jardiance Active 12 hr guaiFENesin 600 mg extended release oral tablet (1 source) Start: 06-23-2021 End: 06-28-2021 take 1 tablet by mouth twice daily guaiFENesin (MUCINEX) 600 MG extended release tablet Take 1 tablet by mouth 2 times daily for 5 days 10 tablet 0 06/23/2021 06/28/2021 Active hydrALAZINE hydrochloride 10 mg oral tablet (8 sources) Arteriolar Vasodilator Start: 04-24-2024 take 1 tablet by mouth once daily hydrALAZINE (Apresoline) 10 MG tablet Indications: Benign essential hypertension (CMS/HCC) Take 1 tablet (10 mg) by mouth Daily 04/24/2024 Active Start: 02-22-2024 take 1 tablet by bi th twice daily hydrALAZINE 10 mg Tab 10 mg = 1 tab(s), Oral, BID Start Date: 02/22/24 Status: Ordered hydrALAZINE HCl Active hydroCHLOROthiazide 25 mg oral tablet (1 source) Thiazide Diuretic take 1 tablet by mouth once daily hydrochlorothiazide (HYDRODIURIL) 25 MG tablet Take 25 mg by mouth daily. 0 Active hydroCHLOROthiazide 12.5 mg / lisinopril 20 mg oral tablet (8 sources) Thiazide Diuretic, Angiotensin Converting Enzyme Inhibitor Start: 2023 take 2 tablets by mouth once daily lisinopril-hydroCHLOROthi azide 20-12.5 MG tablet Indications: Hypertriglyceridemia (CMS/HCC) Take 2 tablets by mouth once daily 80 tablet 05/30/2024 Active Start: 02-22-2024 take 1 tablet by bi th once daily hydrochlorothiazide-lisinopril 12.5 mg-2 0 mg Tab 1 tab(s), Oral, Daily Start Date: 02/22/24 Status: Ordered Lisinopril-hydro CHLOROthiazide Active 1.5 ml insulin glargine 300 unt/ml pen injector (5 sources) Insulin Analog Start: 03-16-2024 Toudarek SoloSta r 300 UNIT/ML injection Indications: 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) INJECT 66 UNITS SUBCUTANEOUSLY ONCE DAILY INCREASE BY 2 UNITS EVERY 2 DAYS UNTIL SUGARS ARE LESS THAN 120 FASTING 6 mL 03/16/2024 Active End: 07-11-2024 insulin glargine (Toujeo Max SoloStar) 300 UNIT/ML injection 1 (one) time each day at the same time. 66 units daily increase by 2 units every 2 days till sugars are less than 120 fasting Subcutaneous daily for 100 days 07/11/2024 Discontinued (Other) Insulin Glargine Max Solostar Pen (concentrated) 300 units/mL subcutaneous solution (4 sources) Start: 02-22-2024 Insulin Glargine Max Solostar Pen (concentrated) 300 units/mL subcutaneous solution 66 unit(s), SubCutaneous, Daily Start Date: 02/22/24 Status: Ordered liraglutide (1 source) GLP-1 Receptor Agonist Liraglutide (VICTOZA SC) Inject 1.2 mg into the skin. 0 Active metFORMIN (1 source) Biguanide metFORMIN HCl Ac tive methylPREDNISolone (5 sources) Corticosteroid Start: 07-11-2024 End: 07-11-2024 methylPREDNISolone (Medrol Dospak) 4 MG tablets Indications: Bronchitis Follow schedule on package instructions 21 tablet 07/11/2024 07/11/2024 Discontinued Start: 07-11-2024 End: 07-18-2024 methylPREDNISolone (Medrol D ospak) 4 MG tablets Indications: Bronchitis Follow schedule on package instructions 21 tablet 07/11/2024 07/18/2024 Active Start: 08-09-2022 methylPREDNISo lone 4 MG as directed Orally Once a day for 6 days Aug, Active metoprolol tartrate 100 mg oral tablet (4 sources) beta-Adrenergic Alexandro Start: 04-24-2024 take 1 tablet by mouth in the morning metoprolol tartrate (Lopressor) 100 MG tablet Indications: Benign essential hypertension (CMS/HCC) Take 1 tablet (100 mg) by mouth in the morning and 1 tablet (100 mg) before bedtime. 180 tablet 3 04/24/2024 Active Metoprolol Succi lindsay Active ondansetron 4 mg disintegrating oral tablet (4 sources) Serotonin-3 Receptor Antagonist Start: 07-06-2024 ondansetron ODT (Zofran-ODT) 4 MG disintegrating tablet 07/06/2024 Active Start: 06-23-2021 End: 06-23-2021 ondansetron (ZOFRAN-ODT) dis integrating tablet 4 mg Start: 06-23-2021 ondansetron (Z OFRAN ODT) [address] 1 tablet under the tongue every 8 hours as needed for Nausea or Vomiting 10 tablet 0 06/23/2021 Active semaglutide 14 mg oral tablet (7 sources) Start: 12-27-2023 take 1 tablet by mouth once daily semaglutide (Rybelsus) 14 MG tablet Indications: 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) Take 1 tablet (14 mg) by mouth Daily 30 tablet 3 12/27/2023 Active sertraline 50 mg oral tablet (9 sources) Serotonin Reuptake Inhibitor Start: 02-22-2024 take 1 tablet by mouth once daily sertraline (Zoloft) 50 MG tablet Indications: Anxiety state (CMS/HCC) Take 1 tablet (50 mg) by mouth 1 (one) time each day at the same time 100 tablet 4 04/24/2024 Active Sertraline HCl A ctive take 1 tablet by mouth once ambika y sertraline (ZOLOFT) 25 MG tablet Take 25 mg by mouth daily. 0 Active Completed/Discontinued Medications Medication Drug Class(es) Dates Sig (Normalized) Sig (Original) dexamethasone 1 mg/ml oral solution (1 source) Corticosteroid Start: 06-23-2021 End: 06-23-2021 dexamethasone (DECADRON) 1 MG/ML solution 10 mg Problems Active Problems Problem Classification Problem Date Documented Da te Episodic/Chronic Anxiety disorders (3 sources) Anxiety state; Translations: [Generalized anxiety disorder] Onset: 03-13-2023 03-13-2023 Chronic Asthma (4 sources) Asthma 02-17-2024 Chronic Biliary tract disease (4 sources) Biliary calculus 02-22-2024 Episodic Chronic obstructive pulmonary disease and bronchiectasis (3 sources) Bronchitis, not specified as acute or chronic; Translations: [Bronchitis] Episodic Conditions associated with dizziness or vertigo (3 sources) Dizziness; Translations: [Dizziness and giddiness] Onset: 04-24-2024 04-24-2024 Episodic Deficiency and other anemia (4 sources) Anemia 02-22-2024 Episodic Diabetes mellitus with complications (6 sources) Renal disorder due to type 2 diabetes mellitus; Translations: [Type 2 diabetes mellitus with other diabetic kidney complication] Onset: 07-13-2019 03-13-2023 Chronic Diabetes mellitus without complication (7 sources) Diabetes mellitus; Translations: [Type 2 diabetes mellitus without complication] Onset: 03-13-2023 02-17-2024 Chronic Disorders of lipid metabolism (9 sources) Hypertriglyceridemi a; Translations: [Hyperchylomicronem ia] Onset: 03-13-2023 03-13-2023 Chronic Diverticulosis and diverticulitis (10 sources) Diverticulitis; Translations: [Diverticular disease] Onset: 11-12-2015 02-17-2024 Chronic Essential hypertension (7 sources) Hypertensive disorder; Translations: [Benign essential hypertension] Onset: 03-13-2023 02-17-2024 Chronic Fracture of upper limb (4 sources) Fracture of radius 02-22-2024 Episodic Genitourinary symptoms and ill-defined conditions (4 sources) History of urinary tract infection 02-22-2024 Episodic Gout and other crystal arthropathies (6 sources) Primary gout; Translations: [Idiopathic gout, right ankle and foot] Onset: 03-13-2023 03-13-2023 Chronic Headache; including migraine (4 sources) Headache 02-22-2024 Episodic Malaise and fatigue (3 sources) Fatigue; Translations: [Chronic fatigue, unspecified] Onset: 03-13-2023 03-13-2023 Chronic Mood disorders (4 sources) Depressive disorder 02-17-2024 Chronic Other diseases of bladder and urethra (5 sources) Urethral stricture; Translations: [Unspecified urethral stricture, female] Onset: 02-22-2024 Episodic Other gastrointestinal disorders (4 sources) Irritable bowel syndrome 02-17-2024 Chronic Other nervous system disorders (3 sources) Abdominal neuropathy; Translations: [Other disorders of peripheral nervous system] Onset: 03-13-2023 03-13-2023 Chronic Other non-traumatic joint disorders (3 sources) Arthropathy; Translations: [Arthropathy, unspecified] Onset: 12-07-2011 03-13-2023 Chronic Other nutritional; endocrine; and metabolic disorders (3 sources) Cholesterol level - finding; Translations: [Lipoprotein deficiency] Onset: 03-13-2023 03-13-2023 Chronic Other nutritional; endocrine; and metabolic disorders (3 sources) Lipoprotein deficiency disorder; Translations: [Lipoprotein deficiency] Onset: 02-22-2018 09-19-2023 Chronic Other nutritional; endocrine; and metabolic disorders (3 sources) Obesity caused by energy imbalance; Translations: [Morbid (severe) obesity due to excess calories] Onset: 04-24-2024 04-24-2024 Chronic Other nutritional; endocrine; and metabolic disorders (3 sources) Body mass index 30+ - obesity; Translations: [Body mass index (BMI) 37.0-37.9, adult] Onset: 04-24-2024 04-24-2024 Chronic Other upper respiratory disease (3 sources) Allergic rhinitis due to pollen; Translations: [Allergic rhinitis due to pollen] Onset: 03-13-2023 03-13-2023 Chronic Other upper respiratory infections (1 source) Acute pharyngitis, unspecified Episodic Residual codes; unclassified (4 sources) Obstructive sleep apnea (adult) (pediatric); Translations: [OBSTRUCTIVE SLEEP APNEA] Onset: 01-04-2022 Chronic Thyroid disorders (4 sources) Goiter 02-22-2024 Chronic Urinary tract infections (12 sources) Urinary tract infectious disease; Translations: [Urinary tract infection, site not specified] Onset: 02-22-2024 Episodic Viral infection (1 source) Disease caused by 2019-nCoV; Translations: [COVID-19] Episodic Past or Other Problems Problem Classification Problem Date Documented Da te Episodic/Chronic Diabetes mellitus without complication (3 sources) Abnormal glucose level; Translations: [Other abnormal glucose] Onset: 05-09-2008 03-13-2023 Episodic Immunizations and screening for infectious disease (3 sources) Suspected clinical finding; Translations: [Encounter for observation for suspected exposure to other biological agents ruled out] Onset: 09-30-2020 09-19-2023 Episodic Other diseases of kidney and ureters (3 sources) Disorder of kidney and/or ureter; Translations: [Disorder of kidney and ureter, unspecified] Onset: 05-09-2008 03-13-2023 Episodic Residual codes; unclassified (3 sources) Acquired absence of cervix and uterus; Translations: [Acquired absence of both cervix and uterus] Onset: 03-13-2023 03-13-2023 Episodic Residual codes; unclassified (3 sources) History of hysterectomy for benign disease; Translations: [Acquired absence of both cervix and uterus] Onset: 03-13-2023 03-13-2023 Episodic Unclassified (1 source) Contact with and (suspected) exposure to covid-19 Z20.822 Varicose veins of lower extremity (3 sources) Venous varices; Translations: [Asymptomatic varicose veins of unspecified lower extremity] Onset: 05-09-2008 03-13-2023 Episodic Viral infection (1 source) COVID-19 Results Test Name Value Interpretation Reference Range Facility Laboratory - Microbiology an d Antimicrobial susceptibilityon 07-17-2024 Bacteria identified Cx Nom (U) [facility] URINE CULTURE, ROUTINEon Bacteria identified Cx Nom (U) Urine Culture, Routine Klebsiella pneumoniae [facility] Bacteria identified Cx Nom (U) *ABNORMAL* [facility] Bacteria identified Cx Nom (U) Cefazolin <=4 ug/mL [facility] identified [facility] (U) Cefazolin with an OBDULIA <=16 predicts susceptibility to the [facility] Bacteria identified Cx Nom (U) oral agents [facility] Bacteria identified Cx Nom (U) cefaclor, cefdinir, cefpodoxime, cefprozil, cefuroxime, [facility] Bacteria identified Cx Nom (U) cephalexin, [facility] Bacteria identified Cx Nom (U) and loracarbef when used for therapy of uncomplicated [facility] Bacteria identified Cx Nom (U) urinary tract [facility] Bacteria identified Cx Nom (U) infections due to E. coli, Klebsiella pneumoniae, and [facility] Bacteria identified Cx Nom (U) Proteus [facility] Bacteria identified Cx Nom (U) mirabilis. [facility] Bacteria identified Cx Nom (U) Greater than 100,000 colony forming units per mL [facility] Bacteria identified Cx Nom (U) O:KLEPNE Isolated [facility] Bacteria identified Cx Nom (U) * This is a corrected result. * [facility] Bacteria identified Cx Nom (U) A prior result that was reported as final has been changed. [facility] Bacteria identified Cx Nom (U) Organism: 1.1 Antibiotic Interpretation OBDULIA Status [facility] Bacteria identified Cx Nom (U) AMOXICILLIN/CLAVULANI C ACID S F Susceptible [facility] Bacteria identified Cx Nom (U) Ampicillin R F Resistant [facility] Bacteria identified Cx Nom (U) Cefepime S F Susceptible [facility] Bacteria identified Cx Nom (U) Ceftriaxone S F Susceptible [facility] Bacteria identified Cx Nom (U) Cefuroxime S F Susceptible [facility] Bacteria identified Cx Nom (U) Ciprofloxacin S F Susceptible [facility] identified [facility] (U) Ertapenem S F Susceptible [facility] Bacteria identified Cx Nom (U) Gentamicin S F Susceptible [facility] Bacteria identified Cx Nom (U) Imipenem S F Susceptible [facility] Bacteria identified Cx Nom (U) Levofloxacin S F Susceptible [facility] Bacteria identified Cx Nom (U) Meropenem S F Susceptible [facility] Bacteria identified Cx Nom (U) Nitrofurantoin I F Intermediate [facility] B[facility] identified [facility] (U) Tetracycline S F Susceptible [facility] Bacteria identified Cx Nom (U) Tobramycin S F Susceptible [facility] Bacteria identified Cx Nom (U) Trimethoprim/Sulfamet hoxazole S F Susceptible [facility] Bacteria identified Cx Nom (U) Piperacillin/Tazobact am S F Susceptible [facility] Interpretation and review of laboratory results Abnormal [facility] Urine[facility] 03-08-2024 Bacteria identified Cx Nom (U) Microbiology PROCEDURE: Urine Culture [R1] SOURCE: U CleanCatch BODY SITE: COLLECTED DATE/TIME: 03/06/2024 09:04 EDT RECEIVED DATE/TIME: 03/06/2024 19:53 EDT START DATE/TIME: 03/06/2024 19:54 EDT FREE TEXT SOURCE: DEA SIMS PA-C, PA-C, DEA Faith FINAL REPORTS Final Report [] Verified Date/Time: 03/08/2024 11:21 EDT >100,000 cfu/ml Klebsiella pneumoniae SUSCEPTIBILITY RESULTS LEGEND: S=Susceptible, N/R=Not Reported, Blank=Data not available, or drug not advisable or tested, I=Intermediate, ESBL=Extended spectrum beta-lactamase, R=Resistant, TFG=Thymidine-depende nt strain, CLIFTON=Beta-lactamase positive, OBDULIA=mcg/m;(mg/L), S*=Predicted susceptible interp, R*=Predicted resistant interp Klepne Antibiotic OBDULIA Dilutn ODBULIA Interp Amikacin <=16 S Ampicillin >16 R [...] Locations R1: This test was performed at: [facility], [address] [place] [address], [id number] , , [facility] Comment on above: Performed By: #### [id number] #### [facility] [address] [place] [address] Ambulatory Visit Summaryon 0 03-06-2024 Ambulatory Visit Summary VENKATAPHANIAIRAM :1960 Visit Date:03/06/2024 Ambulatory Visit Instructions Your Diagnosis UTI (urinary tract infection) Your Care Team Attending Physician - DEA SIMS PA-C Primary Care Physician - NILES ORTIZ MD This Is Your Medications List albuterol (Albuterol (Eqv-ProAir HFA) 90 mcg/inh inhalation aerosol) allopurinol (allopurinol 300 mg Tab) amlodipine (amLODIPine 10 mg Tab) aspirin (aspirin 81 mg Oral EC Tab) atorvastatin (atorvastatin 80 mg Tab) empagliflozin (Jardiance 25 mg oral tablet) hydrALAZINE (hydrALAZINE 10 mg Tab) hydrochlorothiazide-l isinopril (hydrochlorothiazide- lisinopril 12.5 mg-20 mg Tab) insulin glargine (Insulin [...] DEA SIMS PA-C Where: [facility] RAD - MISCon 02-24-2024 [facility] [id number] .00TIFF [facility] Consultation Noteon 02-23-20 Consultation Note [id number]. 00TIFF [facility] Screenson 02-23-2024 Screens [id number] .00TIFF [facility] Ambulatory Visit Summaryon 0 02-22-2024 Ambulatory Visit Summary VENKATA AIRAM :1960 Visit Date:02/22/2024 Ambulatory Visit Instructions Your [...] oral tablet) hydrALAZINE (hydrALAZINE 10 mg Tab) hydrochlorothiazide-l isinopril (hydrochlorothiazide- lisinopril 12.5 mg-20 mg Tab) insulin glargine (Insulin [...] DEA SIMS PA-C Where: [facility] Patient Educationon 02-22-20 24 Patient Education [...] these instructions at home: Medicines ? Take [id number] and prescription medicines only as told by [...] provider. Document Revised: 05/01/2021 Document Reviewed: 05/01/2021 Elsevier Patient Education ? 2022 [employer] [facility] Urology Office/Clinic Noteon 02-22-2024 Urology Office/Clinic Note Chief Complaint New patient, dysuria, frequency, kidney pain HPI Staff Pt is a new pt. Last seen in our office by DEVORA 09/05/14. Pt no showed to follow up [...] Dr. Duffy. Follow-up With When Contact Information DEA SIMS PA-C, URL [id number] [place] [address] Additional Instructions: 6 wks Patient Education Dysuria Documentation recorded by the soo Fisher accurately reflects the services(s) I performed and decisions made by me. Authenticated by Dea Sims PA-C on 02/22/2024 10:55:05. Criselda Edgar, personally scribed for Kaylah Sims PA-C on [...] Tab, 10 mg= 1 tab(s), Oral, BID hydrochlorothiazide-l isinopril 12.5 mg-20 mg Tab, 1 tab(s), Oral, Daily Insulin Glargine Max Solostar Pen (concentrated) 300 units/mL subcutaneous solution, 66 unit(s), SubCutaneous, Daily Jardiance 25 mg oral tablet Rybelsus 14 mg oral tablet, 14 mg= 1 tab(s), Oral, Daily sertraline 50 mg Tab, 50 mg= (more content not included)... [facility] Comment on above: Result Comment: Elec tronically Signed By: DEA SIMS PA-C\.br\Date and Time Signed: 02/22/24 10:55 EDT\.br\Electronically Co-Signed By: Criselda Fisher.br\Date and Time Co-Signed: 02/22/24 10:49 EDT COVID/FLU RT-PCRon SARS-CoV-2 (COVID-19) RNA ELBA+probe Ql (Unsp spec) Positive [facility] Other COVID/FLU RT-PCR Negative Envia Lá Other Quick Strepon 08-09-2022 S. pyogenes Org specific cx Ql (Throat) Negative [facility] Other Quick Strep [facility] Other XR CHEST (2 VW)on 06-23-2021 XR [...] Juancarlos York DO 06/23/21 Final result Normal [facility] XR CHEST (2 VW)Ordered By: Guerita Pool on 06-23-2021 No acute findings. [facility] Phone: EXAMINATION: TWO XRA Y VIEWS OF THE CHEST 06/23/2021 2:12 pm COMPARISON: None. HISTORY: ORDERING SYSTEM PROVIDED HISTORY: SOB TECHNOLOGIST PROVIDED HISTORY: SOB FINDINGS: Lungs are clear. Cardiac and mediastinal silhouettes unremarkable. Sternotomy wire sutures present. Osseous structures grossly intact. [facility] Phone: Babak, Mh[facility] Incoming Radiant Results From [facility] - 06/23/2021 2:19 PM EDT EXAMINATION: TWO XRAY VIEWS OF THE CHEST 06/23/2021 2:12 pm COMPARISON: None. HISTORY: ORDERING SYSTEM PROVIDED HISTORY: SOB TECHNOLOGIST PROVIDED HISTORY: SOB FINDINGS: Lungs are clear. Cardiac and mediastinal silhouettes unremarkable. Sternotomy wire sutures present. Osseous structures grossly intact. IMPRESSION: No acute findings. [facility] Phone: [facility] Phone: Vital Signs Date Time Vital Sign Value Performing Clinician Facility 07-11-2024 10:07-0400 Body height 152.4 cm Robert Dooley [facility] HELPER Work Phone: [facility] 07-11-2024 10:07-0400 Body mass index (BMI) [Ratio] 35.54 kg/m2 Robert Dooley UPHOLSTERER HELPER Work Phone: [facility] 07-11-2024 10:07-0400 Body weight 82.56 kg Robert Soumya UPHOLSTERER HELPER Work Phone: [facility] 07-11-2024 10:07-0400 Diastolic blood pressure 78 mm[Hg] Robert Dooley UPHOLSTERER HELPER Work Phone: [facility] 07-11-2024 10:07-0400 Heart rate 70 /min Robert Dooley UPHOLSTERER HELPER Work Phone: [facility] 07-11-2024 10:07-0400 SaO2% (BldA) [Mass fraction] 94 % Robert Dooley UPHOLSTERER HELPER Work Phone: [facility] 07-11-2024 10:07-0400 Systolic blood pressure 110 mm[Hg] Robert Dooley UPHOLSTERER HELPER Work Phone: [facility] 02-22-2024 10:23-0400 Blood Pressure Location DEA SIMS [facility] 02-22-2024 10:23-0400 Body temperature 97.88 [degF] DEA SIMS [facility] 02-22-2024 10:23-0400 Diastolic blood pressure 68 mm[Hg] DEA LEVI [facility] 02-22-2024 10:23-0400 Heart rate 90 /min DEA LEVI [facility] 02-22-2024 10:23-0400 Systolic blood pressure 110 mm[Hg] DEA LEVI [facility] 08-09-2022 11:55-0500 Body height 149.86 cm Brooklyn Alcala Other [facility] Other 08-09-2022 11:55-0500 Body mass index (BMI) [Ratio] 42.41 kg/m2 Brooklyn Alcala Other [facility] Other 08-09-2022 11:55-0500 Body temperature 98.4 [degF] Brooklyn Alcala Other [facility] Other 08-09-2022 11:55-0500 Body weight 95.26 kg Brooklyn Alcala Other [facility] Other 08-09-2022 11:55-0500 Respiratory rate 18 /min Brooklyn Alcala Other [facility] Other 08-09-2022 11:55-0500 SaO2% (BldA) [Mass fraction] 96 % Brooklyn Alcala Other [facility] Other 06-23-2021 16:25-0400 Heart rate 99 /min [place] Work Phone: [employer] Work Phone: 06-23-2021 16:25-0400 SaO2% (BldA) [Mass fraction] 95 % Rugen Laurel Work Phone: [employer] Work Phone: 06-23-2021 14:04-0400 Diastolic blood pressure 84 mm[Hg] Rugen Laurel Work Phone: [employer] Work Phone: 06-23-2021 14:04-0400 Systolic blood pressure 132 mm[Hg] Rugen Laurel Work Phone: [employer] Work Phone: 06-23-2021 14:02-0400 Body temperature 99.3 [degF] Rugen Angel Work Phone: [employer] Work Phone: 06-23-2021 14:02-0400 Respiratory rate 17 /min Niles Ortiz Work Phone: [employer] Work Phone: Encounters Encounter Date Encounter Type Care Provider Facility Start: 07-11-2024 End: 07-11-2024 Office outpatient visit 25 minutes Robert Dooley UPHOLSTERER HELPER Work Phone: [facility] Comment on above: Urinary tract infect ion with hematuria, site unspecified (Primary Dx); Bronchitis Start: 07-11-2024 End: 07-11-2024 ambulatory ROBERT DOOLEY Not Available Start: 07-06-2024 End: 07-17-2024 Clinisync Result Encounter Generic External Data Provider [facility] Unsolicited Start: 07-06-2024 End: 07-17-2024 Clinisync Result Encounter Generic External Data Provider [facility] External [facility] Unsolicited Start: 05-08-2024 End: 05-08-2024 ambulatory DEA E LEVI Facility:[facility] Start: 05-08-2024 End: 05-08-2024 Patient encounter procedure DEA Vianney LEVI [facility] Start: 04-24-2024 End: 04-24-2024 ambulatory NILES ORTIZ Not Available Start: 03-06-2024 End: 03-06-2024 Lab Drop off DEA Faith LEVI [facility] Start: 03-06-2024 End: 03-06-2024 ambulatory DEA E LEVI [place] Start: 03-06-2024 End: 03-06-2024 Patient encounter procedure DEA E LEVI [facility] Start: 02-22-2024 End: 02-22-2024 ambulatory DEA E LEVI Facility:[facility] Start: 02-22-2024 End: 02-22-2024 Patient encounter procedure DEA SIMS [facility] Katerina Start: 10-12-2023 End: 10-12-2023 ambulatory JULIO FREY Not Available Start: 08-09-2022 End: 08-09-2022 ambulatory Brooklyn Alcala Other [facility] Other Start: 08-09-2022 Office outpatient ne w 20 minutes Brooklyn Alcala [facility] [place] Start: 02-01-[address] NILES ORTIZ Facility: [facility] Start: 01-04-2022 End: 01-05-[address] NILES ORTIZ Facility:[facility] Start: 06-23-2021 Emergency department patient visit [facility] Start: 06-23-2021 End: 06-23-2021 Emergency department patient visit [facility] Work Phone: [facility] ED Comment on above: COVID-19 (Primary Dx ) Procedures Date Procedure Procedure Detail Performing Clinician Start: 07-06-2024 Bacteria identified in Urine by Culture Generic External Data Provider Start: 06-23-2021 Radiologic exam chest 2 views Nano Pool DO Work Phone: Start: 01-23-2021 Mammography Robert danielle UPHOLSTERER HELPER Work Phone: Start: 05-24-2016 Colonoscopy Robert danielle UPHOLSTERER HELPER Work Phone: Start: 10-03-2015 Colonoscopy DEA LEONARD Start: 08-09-2014 Cystourethroscopy wi th dilation of urethral stricture DEA SIMS Start: 10-03-2013 Colonoscopy DEA LEONARD Start: 10-03-2012 Cholecystectomy LINDA SIMS Start: 10-03-2010 Thyroidectomy DEA SIMS Start: 10-03-2006 Hysterectomy DEA LEONARD Start: 10-03-1962 Tonsillectomy DEA SIMS Plan of Treatment Date Care Activity Detail Author Start: 09-07-2028 DTaP/Tdap/Td vaccine (2 - Td or Tdap) DTaP/Tdap/Td vaccine (2 - Td or Tdap) [facility] Phone: Start: 05-24-2026 Screening for malignant neoplasm of colon [facility] Start: 09-02-2025 Glaucoma screening Diabetes: Retinopathy Screening [facility] Start: 04-24-2025 Urine screening for protein Diabetes: Urine Protein Screening [facility] Start: 10-23-2024 End: 10-23-2024 Patient encounter procedure 10/23/2024 1:00 PM EST Office Visit [facility] [address] [facility] [address] [place] [id number] Niles Ortiz MD [address] [place] [facility] [address] [place] [address] [facility] Start: 07-25-2024 Hemoglobin A1c measurement Diabetes: Hemoglobin A1C [facility] Start: 06-03-2024 Influenza vaccination Influenza Vaccine (#1) [facility] Start: 01-23-2022 Screening for malignant neoplasm of breast Mammogram [facility] Start: 06-03-2021 Influenza vaccination Flu vaccine (#1) [facility] Phone: Start: 2016 Lipid panel Lipid screen [facility] Phone: Start: 10-10-2014 Creatinine measurement Creatinine monitoring [facility] Phone: Start: 10-10-2014 Potassium monitoring Potassium monitoring [facility] Phone: Start: 2010 Screening for malignant neoplasm of breast Breast cancer screen [facility] Phone: Start: 2010 Shingles Vaccine (1 of 2) Shingles Vaccine (1 of 2) [facility] Phone: Start: 2005 Screening for malignant neoplasm of colon Colon cancer screen colonoscopy [facility] Phone: Start: 1975 HIV screening HIV screen [facility] Phone: Start: 1960 Hepatitis C screening Hepatitis C screen [facility] Phone: Start: 1960 Screening for malignant neoplasm of colon [facility] Immunizations Immunization Date Immunization Notes Care Provider Fa [facility] 07-20-2021 influenza virus vacc ine, unspecified formulation DEA LEVI [facility] 07-20-2021 influenza, injectabl e, quadrivalent, preservative free Robert Ursina UPHOLSTERER HELPER Work Phone: [facility] 01-08-2021 SARS-CoV-2 (COVID-19 ) mRNA BNT-162b2 vax DEA LEVI [facility] 12-18-2020 SARS-CoV-2 (COVID-19 ) mRNA BNT-162b2 vax DEA LEVI [facility] 06-05-2020 influenza virus vacc ine, unspecified formulation DEA LEVI [facility] 06-05-2020 influenza, high dose seasonal, preservative-free Robert Soumya UPHOLSTERER HELPER Work Phone: [facility] 06-05-2020 influenza, injectabl e, quadrivalent, preservative free Robert Soumya UPHOLSTERER HELPER Work Phone: [facility] 09-07-2018 influenza virus vacc ine, unspecified formulation DEA LEVI [facility] 09-07-2018 influenza, injectabl e, quadrivalent, preservative free Robert Soumya UPHOLSTERER HELPER Work Phone: [facility] 09-07-2018 pneumococcal polysaccharide vaccine, 23 valent DEA SIMS [facility] 09-07-2018 seasonal influenza, intradermal, preservative free Robert Dooley UPHOLSTERER HELPER Work Phone: [facility] 09-07-2018 tetanus toxoid, redu jerry diphtheria toxoid, and acellular pertussis vaccine, adsorbed DEA SIMS [facility] Payers Date Payer Category Payer [facility] BCBS [id number] 2022 Unknown BCBS BCBS [id number] 2022-Present [phone] [address] [place] [id number] 1960 Unknown [id number] .[id number]. [id number] 1960 Unknown [id number] .[id number]. [id number] 1960 Unknown [id number] .[id number]. 2.727 1960 Unknown [id number] .[id number]. 2.727 1960 Unknown [id number]. [id number] 1960 Unknown [id number]. [id number] 1960 Unknown [id number]. 2.1259 1960 Unknown [id number] [id number]. 2.1259 1960 Unknown [id number] [id number]. 2.1259 1959 Unknown [id number] [facility] [id number] Social History Date Type Detail Facility Start: 10-10-2013 End: 03-05-2023 Tobacco smoking status [facility] Never smoker [facility] Start: 1960 Sex Assigned At Not on file [employer] Work Phone: Exposure to SARS-CoV -2 (event) Yes [facility] Start: 07-11-2024 Sex Assigned At F [facility] Start: 02-22-2024 Tobacco smoking status Never [facility] Start: 04-24-2024 End: 07-11-2024 Alcoholic beverage intake Lifetime non-drinker (finding) [facility] Start: 07-11-2024 History of Social function [facility] Are you now , , , , never or living with a partner? Living with partner [facility] How often to you hav e a drink containing alcohol? Monthly or less [facility] How many standard drinks containing alcohol do you have on a typical day? 1 or 2 [facility] How often do you hav e 6 or more drinks on 1 occasion? Never [facility] Do you feel stress - tense, restless, nervous, or anxious, or unable to sleep at night because your mind is troubled all the time - these days [OSQ] Only a little [facility] In the past 12 month s, was there a time when you were not able to pay the mortgage or rent on time? No [facility] Start: 03-05-2023 Alcohol Comment Caffeine: coffee [facility] Medical Equipment Procedure Code Equipment Code Equipment Original Text Equi pment Identifier Dates as directed Four times daily for 30 days Functional Status Date Assessment Result Facility 02-22-2024 Functional Status N/A [facility] Clinical Notes 06-23-2021 to 07-11-2024 Robert Dooley NP - 07/11/2024 10:00 AM EDT Note Date & Type Note Facility 07-11-2024 History of Present illness Narrative Images from the original note were not included. HPI URI Additional comments: Follow up pt went to ER on 07/06 was given keflex and zofran Last edited by Noreen Gonzalez MA on 07/11/2024 7:35 AM. Subjective Patient ID: Airam Silverio is a 63 y.o. female who presents for URI (Follow up pt went to ER on 07/06 was given keflex and zofran ). Pt did go to Er on Friday 07/06 ,pt went due to difficulty breathing , coughing, fever pt did have labwork, CXR, CT Pt did get sent home with abx and zofran Pt is very exhausted still Had fever of 102.8 Current Outpatient Medications on File Prior to Visit Medication Sig Dispense Refill cephalexin (Keflex) 500 MG capsule ondansetron ODT (Zofran-ODT) 4 MG disintegrating tablet albuterol HFA (Proventil HFA) 90 mcg/act inhaler Inhale 2 puffs every 4 (four) hours if needed for wheezing. allopurinol (Zyloprim) 300 MG tablet Take 1 tablet by mouth once daily 30 tablet 3 amLODIPine (Norvasc) 10 MG tablet Take 1 tablet by mouth once daily 30 tablet 3 ASPIRIN 81 PO Take by mouth. atorvastatin (Lipitor) 80 MG tablet Take 1 tablet (80 mg) by mouth Daily 90 tablet 3 empagliflozin (Jardiance) 25 MG Take 1 tablet (25 mg) by mouth 1 (one) time each day at the same time 90 tablet 3 glucose blood test strip as directed Four times daily for 30 days hydrALAZINE (Apresoline) 10 MG tablet Take 1 tablet (10 mg) by mouth Daily lisinopril-hydroCHLOROthiazide 20-12.5 MG tablet Take 2 tablets by mouth once daily 80 tablet 0 metoprolol tartrate (Lopressor) 100 MG tablet Take 1 tablet (100 mg) by mouth in the morning and 1 tablet (100 mg) before bedtime. 180 tablet 3 semaglutide (Rybelsus) 14 MG tablet Take 1 tablet (14 mg) by mouth Daily 30 tablet 3 sertraline (Zoloft) 50 MG tablet Take 1 tablet (50 mg) by mouth 1 (one) time each day at the same time 100 tablet 4 Toujeo SoloStar 300 UNIT/ML injection INJECT 66 UNITS SUBCUTANEOUSLY ONCE DAILY INCREASE BY 2 UNITS EVERY 2 DAYS UNTIL SUGARS ARE LESS THAN 120 FASTING 6 mL 0 [DISCONTINUED] insulin glargine (Toujeo Max SoloStar) 300 UNIT/ML injection 1 (one) time each day at the same time. 66 units daily increase by 2 units every 2 days till sugars are less than 120 fasting Subcutaneous daily for 100 days No current facility-administered medications on file prior to visit. I have reviewed and reconciled the history and medication list with the patient today. Allergies Allergen Reactions Ciprofloxacin Other Reaction(s): Hives Ciprofloxacin Hcl Other Reaction(s): Hives Penicillins Other Reaction(s): Rash & Difficulty Swallowing Social History Tobacco Use Smoking status: Never Substance Use Topics Alcohol use: Never Comment: Caffeine: coffee Drug use: Never Family History Problem Relation Name Age of Onset Hypertension Father Past Medical History: Diagnosis Date Abdominal pain 2009 Abnormal x-ray of knee 11/09/2022 B/L Knee Xrays: No acute osseous findings. Degenerative changes, advanced in right medial compartment Allergic reaction 09/12/2016 Allergic reaction and dyspnea Allergies Anemia Asthma (CMS/HCC) Chest pain Cholelithiasis 2013 Contusion of left hand COVID-19 06/23/2021 Depression (CMS/HCC) Diabetes (CMS/HCC) Diverticulosis Goiter (CMS/HCC) 2011 Head contusion Headache Hypertension (CMS/HCC) Irritable bowel syndrome 2014 Migraine headache (CMS/HCC) Otitis media, right Radial fracture 1999 Type 2 diabetes mellitus without complication ([facility]/HCC) UTI (urinary tract infection) Past Surgical History: Procedure Laterality Date CHEST XRAY 2012 CHEST PAIN CHOLECYSTECTOMY 2012 Cholel[address] COLONOSCOPY 2013 Dr. Montero COLONOSCOPY 05/24/2016 Dr. montero Internal hemorhoid, Spastic Colon CT/HEAD 2013 HEADACHE EKG 2012 CHEST PAIN LAPAROTOMY OOPHERECTOMY Left MASS EXCISION removal chest mass ORIF RADIAL SHAFT FRACTURE NM MED TX MEDS NOS 2009 BACTRIUM DS & TYLENOL #3;Disease:OTITIS MEDIA- RIGHT THYROIDECTOMY 2011 Goiter Partial TONSILLECTOMY 1963 TOTAL ABDOMINAL HYSTERECTOMY W/ BILATERAL SALPINGOOPHORECTOMY 2007 NOT cervical Cancer Visit Vitals Smoking Status Never Review of Systems Constitutional: Positive for activity change, appetite change, chills, fatigue and fever. HENT: Positive for sinus pressure and sinus pain. Sinus pressure has improved Respiratory: Positive for cough. Cardiovascular: Negative. Gastrointestinal: Negative. Genitourinary: Negative. Musculoskeletal: Negative. Skin: Negative. Neurological: Negative. Psychiatric/Behavioral: Negative. All other systems reviewed and are negative. Objective Physical Exam Vitals reviewed. Constitutional: Appearance: Normal appearance. HENT: Head: Normocephalic. Right Ear: Tympanic membrane normal. Left Ear: Tympanic membrane normal. Nose: Nose normal. Mouth/Throat: Mouth: Mucous membranes are moist. Pharynx: Oropharynx is clear. Eyes: Conjunctiva/sclera: Conjunctivae normal. Cardiovascular: Rate and Rhythm: Normal rate and regular rhythm. Pulmonary: Effort: Pulmonary effort is normal. Breath sounds: Normal breath sounds. Comments: diminished Skin: General: Skin is warm and dry. Neurological: General: No focal deficit present. Mental Status: She is alert and oriented to person, place, and time. Psychiatric: Mood and Affect: Mood normal. Behavior: Behavior normal. Assessment/Plan Diagnoses and all orders for this visit: Urinary tract infection with hematuria, site unspecified Continue ATB until gone. If you have increased incontinence, frequency or urgency, come back to the office so that we can retest your urine. Bronchitis - methylPREDNISolone (Medrol Dospak) 4 MG tablets; Follow schedule on package instructions Start the above medications as directed. Advised of potential side effects of the steroid. Patient is to take the steroid with food. Increase water intake, get plenty of rest. Can take Tylenol prn for any discomfort or fever. No other anti-inflammatories while on steroid. Cough into elbow. Wash hands often. Advised patient that cough can linger with bronchitis. Follow up in our office if no improvement in one week. No follow-ups on file. documented in this encounter [facility] 02-22-2024 Hospital Discharge instructions Patient Education 02/22/2024 10:49:13 Dysuria Dysuria [...] Follow these instructions at home: Medicines Take [id number] and prescription medicines only as told by [...] provider. Document Revised: 05/01/2021 Document Reviewed: 05/01/2021 [employer] Patient Education 2022 [employer]. Follow Up Care 01/16/2024 11:44:07 With:LEVI NICOLE, DEA Faith, URL Address: [address] [place] [address]. [place] [address] When: Unknown [facility] 08-09-2022 Evaluation note Encounter Date Diagnosis Assessment [...] weeks for the cough to go away. [facility] Other 09-21-2021 Hospital Discharge instructions* Discharge Instr - RONNI* Franci Leyva PA-C - 06/23/2021 1:21 PM [...] Status: {IP PT MENTAL STATUS:} IV Access: {[facility] IV ACCESS:548352729} Nursing Mobility/ADLs: Walking {CH[facility] DME ADLs:625547974} Transfer {CHP DME ADLs:922894739} Bathing {CHP DME ADLs:842745628} Dressing {CHP DME ADLs:166271956} Toileting {CHP DME ADLs:058405578} Feeding {P DME ADLs:750187677} Medical Typist {[facility] DME ADLs:995761119} Med Delivery { RONNI MED Delivery:419504155} Wound Care Documentation and Therapy: Elimination: Continence: Bowel: {YES / NO:} Bladder: {YES / NO:} Urinary Catheter: {Urinary Catheter:436990254} Colostomy/Ileostomy/Ileal Conduit: {YES / NO:} Date of Last BM: No intake or output data in the 24 hours ending 06/23/21 1601 No intake/output data recorded. Safety Concerns: { RONNI Safety Concerns:217219745} Impairments/Disabilities: { RONNI Impairments/Disabilities:161233832} Nutrition Therapy: Current Nutrition Therapy: { RONNI Diet List:457218930} Routes of Feeding: {[facility] DME Other Feedings:092603426} Liquids: {Auricular Detoxification Specialist liquid thickness:03280} Daily Fluid Restriction: {[facility] DME Yes amt example:052442578} Last Modified Barium Swallow with Video (Video Swallowing Test): {Done Not Done Date:} Treatments at the Time of Hospital Discharge: Respiratory Treatments: Oxygen Therapy: {Therapy; copd oxygen:10439} Ventilator: { CC Vent List:920741144} Rehab Therapies: {THERAPEUTIC INTERVENTION:4870696665} Weight Bearing Status/Restrictions: {[facility] Weight Bearin} Other Medical Equipment (for information only, NOT a DME order): {EQUIPMENT:563025074} Other Treatments: Patient's personal belongings (please select all that are sent with patient): {[facility] DME Belongings:966931483} RN SIGNATURE: {Esignature:666600187} CASE MANAGEMENT/SOCIAL WORK SECTION Inpatient Status Date: Readmission Risk Assessment Score: Readmission Risk Risk of Unplanned Readmission: 0 Discharging to Facility/ Agency Name: Address: Phone: Fax: Dialysis Facility (if applicable) Name: Address: Dialysis Schedule: Phone: Fax: [facility] 9 Coder/Lead Pourer signature: {Esignature:854356940} PHYSICIAN SECTION Prognosis: {Prognosis:7975070258} Condition at Discharge: { Patient Condition:229882059} Rehab Potential (if transferring to Rehab): {Prognosis:0625167010} Recommended Labs or Other Treatments After Discharge: Physician Certification: I certify the above information and transfer of Airam Silverio is necessary for the continuing treatment of the diagnosis listed and that she requires {Admit to AppropriateLevel of Care:87319} for {GREATER/LESS:390622586} 30 days. Update Admission H&P: {CHP DME Changes in HandP:888873483} PHYSICIAN SIGNATURE: {Esignature:583772901} * Attachments The following attachments cannot be sent through Care Everywhere. * Coronavirus Disease (COVID-19): General Info (Greenlandic) [facility]: evaluation + Plan note Future Appointments Appointment Date:05/01/2024 08:40:00 AM Scheduled Provider:DEA SIMS PA-C Location:[facility] Appointment Type:URO Office Visit [facility] evaluation + Plan note Future Appointments Appointment Date:05/01/2024 08:40:00 AM Scheduled Provider:EDA SIMS PA-C Location:[facility] Appointment Type:URO Office Visit Diagnostic Tests Pending * [facility]-19- Primary [facility] in [facility] Phone: evalkyiktf note* Diagnosis Urinary tract infection with hematuria, site unspecified- Primary Bronchitis Bronchitis, not specified as acute or chronic documented in this encounter [facility] N[facility] - Reported* Type Description Date Medical History Hypertension Medical History type II diabetes Medical History [facility] Other Hospital course Narrative No data available for this section [facility] Hospital Discharge instructions No data available for this section [facility] Sleepy's progress note No data available for this section [facility] Katerina Summary Purpose Family History No Family [...] for covid this am, states difficulty breathing Reason Comments URI Follow up pt went to ER on 07/06 was given keflex and zofran Ordered Prescriptions (unrec ognized section and content) [...] CREATED AUTHOR AUTHOR'S ORGANIZ ATION 03/09/2024 Brown Greenlee [facility] DATE CREATED AUTHOR AUTHOR'S ORGANIZ ATION 03/10/2024 Brown Mookie [facility] DATE CREATED AUTHOR AUTHOR'S ORGANIZ ATION 05/11/2024 Brown Greenlee [facility] DATE CREATED AUTHOR AUTHOR'S ORGANIZ ATION 07/13/2024 [facility] dical Specialists EPIC Patient Care team informatio n (unrecognized section and content) Sidehand Relationship Specialty Start Date End Date Niles Ortiz MD [address] [address] PCP - General Family Medicine 03/15/23 Niles Ortiz MD [address] [address] PCP - [facility] 01/01/23 Personnel Name: NILES ORTIZ MD Address: Address: [address] [place] [id number] FOR RECORDS PERTAINING TO PATIENTS WHO ARE [...] BE BASED ON THE PRIMARY CLINICAL RECORDS. [employer] provides no warranty or guarantee of the accuracy or completeness of information in this document.
[2024-09-27] MEDS: KETOROLAC TROMETHAMINE 30 MG/ML VIAL IVP (16:46)
[2024-09-27 17:00] LABS: Basophils Absolute Auto 0.1 10^3/uL (0.0-0.1); Basophils Percent Auto 0.9 % (0.2-2.0); Eosinophils Absolute Auto 0.6 10^3/uL (0.0-0.7); Eosinophils Percent Auto 4.6 % (0.9-7.0); Hematocrit 41.6 % (36.0-48.0); Hemoglobin 13.5 g/dL (12.0-16.0); Immature Granulocytes Abs Auto 0.03 10^3/uL (0.00-0.03); Immature Granulocytes Pct Auto 0.2 % (0.0-0.5); Lymphocytes Absolute Auto 3.5 10^3/uL (1.2-3.8); Mean Corpuscular HGB Conc 32.5 g/dL (29.9-35.2); Mean Corpuscular Hemoglobin 30.1 pg (26.7-34.0); Mean Corpuscular Volume 92.9 fL (81.0-99.0); Mean Platelet Volume 10.7 fL (9.5-13.5); Monocytes Percent Auto 7.6 % (1.7-12.0); Neutrophils Absolute Auto 7.7 10^3/uL (1.4-6.5); Neutrophils Percent Auto 59.7 % (43.0-75.0); Platelet Count 214 10^3/uL (150-450); Red Blood Count 4.48 10^6/uL (4.20-5.40); Red Cell Distribution Width 14.4 % (11.0-15.0); White Blood Count 12.8 10^3/uL (4.0-11.0)
[2024-09-27 17:12] LABS: INR 0.98; Prothrombin Time 10.4 sec (9.0-11.6)
[2024-09-27 17:16] LABS: Alanine Aminotransferase 31 U/L (14-59); Albumin Level 3.7 g/dL (3.4-5.0); Alkaline Phosphatase 97 U/L (46-116); Anion Gap 12.1; Aspartate Amino Transferase 33 U/L (15-37); BUN Creatinine Ratio 16.4; Bilirubin Total 0.4 mg/dL (0.2-1.0); Calcium 9.1 mg/dL (8.5-10.1); Carbon Dioxide 28.9 mmol/L (21.0-32.0); Chloride 105 mmol/L (98-107); Estimated GFR (African America 48 (>=60 mL/min/1.73m^2); Estimated GFR (Non-African Ame 40 (>=60 mL/min/1.73m^2); Globulin 3.6 g/dL; Glucose 99 mg/dL (74-106); Sodium 142 mmol/L (136-145); Total Protein 7.3 g/dL (6.4-8.2); Troponin I High Sensitivity 5.3 pg/mL (4.0-51.3)
--- NOTE | 2024-09-27 17:19 | XR_ITS ---
The [address] [address] Patient Name: AIRAM HASTINGS MRN: [id number] date: 1960 Sex: F Assigned Patient Location: ER Current Patient Location: Accession/Order Number: [id number] Exam Date: 09/27/2024 17:55 Report Date: 09/27/2024 18:47 At the request of: LANEY CARRANZA Procedure: XR chest 1V Exam: Radiographs: XR shoulder LT min 2V, XR chest 1V Reason for exam: Left shoulder pain Comparison: None XR/XR chest 1V IMPRESSION: Mild left glenohumeral and AC joint degenerative change. Left shoulder radiographs are otherwise unremarkable. Sternotomy. Chest is otherwise unremarkable. Electronically authenticated by: KIARA KASPER Date: 09/27/2024 18:47
--- NOTE | 2024-09-27 17:19 | XR_ITS ---
[address] [address] Patient Name: AIRAM HASTINGS MRN: [id number] date: 1960 Sex: F Assigned Patient Location: ER Current Patient Location: Accession/Order Number: [id number] Exam Date: 09/27/2024 17:55 Report Date: 09/27/2024 18:47 At the request of: LANEY CARRANZA Procedure: XR shoulder LT min 2V Exam: Radiographs: XR shoulder LT min 2V, XR chest 1V Reason for exam: Left shoulder pain Comparison: None XR/XR shoulder LT min 2V IMPRESSION: Mild left glenohumeral and AC joint degenerative change. Left shoulder radiographs are otherwise unremarkable. Sternotomy. Chest is otherwise unremarkable. Electronically authenticated by: KIARA KASPER Date: 09/27/2024 18:47
== END 2024-09-27 18:16 | disposition home or self-care (01) ==
PROVIDERS: Physician Assistant; Emergency Provider Emergency Medicine; PCP Family Medicine
DX: M54.6 Pain in thoracic spine (principal); E11.9 Type 2 diabetes mellitus without complications; Z79.4 Long term (current) use of insulin; R06.09 Other forms of dyspnea
CPT/HCPCS: 36415; 71045; 73030; 80053; 83690; 84484; 85025; 85378; 85610; 93005; 96374; 99285; J1885

== ENCOUNTER 2024-11-14 07:41 | Outpatient (OUT) | payer BC, SELFPAY ==
--- NOTE | 2024-11-14 07:45 | NM_ITS ---
Patient Name: AIRAM HASTINGS MR#: [id number] : 1960 Exam Date: 11/14/2024 Ordering Doctor: DR MARK ORTIZ M.D. RADIOLOGY REPORT PROCEDURE: NM BUSHRA PERF SPECT REST STR COMPARISON: None. INDICATIONS: CHEST PAIN, SHORTNESS OF BREATH TECHNIQUE: Exam Description: Stress/Rest one day protocol gated SPECT Rest Imagin.1 mCi Tc-99m Cardiolite IV on 11/14/2024 Stress Imaging 31.0 mCi Tc-99m Cardiolite IV on 11/14/2024 Exercise Protocol: 0.4 mg Lexiscan given IV Heart Rate (bpm): Rest: 88 Max: 100 PMHR: 64 Blood Pressure: Rest: 106/65 Max: 124/70 Symptoms: Rest and peak stress ECG findings were normal and the exercise portion of the study was normal per attending physician Dr. Leone . For more details please see separate cardiac stress test report. FINDINGS: QUALITY OF STUDY: Excellent. PERFUSION DEFECT: None. LOCATION: N/A SIZE: N/A. SEVERITY: N/A. TYPE: N/A. WALL MOTION: Normal. LV SIZE: Normal. 48 mL. TID / TCD: None; 2.1 LVEF: Normal. Calculated EF 79%. SUMMARY: Myocardial perfusion imaging study is NORMAL. CONCLUSION: 1. Normal nuclear medicine myocardial perfusion scan. Dictated by: Jorge Barclay M.D. on 11/16/2024 at 10:37 Approved by: Jorge Barclay M.D. on 11/16/2024 at 10:43
--- OUTSIDE RECORDS SUMMARY | 2024-11-14 07:45 | XMS_ITS | CCD ---
Author Organization [facility] Care Team Providers Care Clerical Warehouse Worker Name Role Phone Niles Ortiz Primary Care Provider [phone] NILES ORTIZ Primary Care Unavailable ANGEL, DR FLORES Primary Care Unavailable ANGEL, DR FLORES Attending Unavailable ANGEL, DR FLORES Admitting Unavailable ANGEL, DR FLORES Attending Unavailable ANGEL, DR FLORES Admitting Unavailable ANGEL, DR FLORES Primary Care Unavailable Brooklyn Alcala Unavailable NILES ORTIZ Primary Care Physician [phone] DEA SIMS Attending Unavailable DEA SIMS Attending Unavailable DEA SIMS Attending Unavailable DEA SIMS Admitting Unavailable DEA SIMS Attending Unavailable Niles Ortiz MD Primary Care Provider [phone] Niles Ortiz MD Unavailable NILES ORTIZ Attending Unavailable NILES ORTIZ Attending Unavailable ROBERT DOOLEY Attending Unavailable Allergies Allergy Classification Reported Allergen(s) Allergy Type Date of Onset Reaction(s) Facility (6 sources) Penicillins; Translations: [penicillins] Propensity to adverse reactions to drug 10-10-19 14 Difficulty breathing (finding), Eruption of skin (disorder) [facility] (1 source) Ciprofloxacin Drug Allergy 01-07-20 14 [facility] (1 source) Penicillins Drug allergy (disorder) 01-07-20 14 [facility] (1 source) Sulfonamides (Antibiotic) Drug allergy (disorder) 01-07-20 14 [facility] (1 source) Misc-Food; Translations: [Misc-Food] Food allergy (disorder) 02-20-20 14 [facility] (1 source) Cat/Feline Product Derivatives Drug allergy (disorder) 02-20-20 14 [facility] (11 sources) Ciprofloxacin; Translations: [ciprofloxacin] Drug Allergy 03-13-20 23 Nancy porter (disorder) [facility] (1 source) Penicillin V Drug Allergy hives [facility] Other (5 sources) Ciprofloxacin Drug Allergy 03-13-20 [facility] (5 sources) Penicillins Drug Allergy 03-13-20 [facility] Medications Current Medications Medication Drug [...] cause fatigue). 12 tablet 0 10/10/2013 Active [id number] 200 actuat albuterol 0.09 mg/actuat metered dose inhaler (6 sources) beta2-Adrenergic Agonist Start: 08-09-2022 take 2 [...] Status: Ordered allopurinol 300 mg oral tablet (10 sources) Xanthine Oxidase Inhibitor Start: 09-10-2024 take 1 tablet by mouth once daily allopurinol (Zyloprim) 300 MG tablet Indications: Acute cystitis with hematuria Take 1 tablet (300 mg) by mouth Daily 30 tablet 3 09/10/2024 Active Start: 02-22-2024 take 1 tablet by bi th once daily allopurinol (Zyloprim) 300 MG tablet Indications: Acute cystitis with hematuria Take 1 tablet by mouth once daily 30 tablet 3 03/26/2024 Active Allopurinol Acti ve amLODIPine 10 mg oral tablet (9 sources) Dihydropyridine Calcium Channel Alexandro Start: 09-10-2024 take 1 tablet by mouth once daily amLODIPine (Norvasc) 10 MG tablet Indications: Benign essential hypertension (CMS/HCC) Take 1 tablet (10 mg) by mouth Daily 30 tablet 3 09/10/2024 Active Start: 02-22-2024 take 1 tablet by bi th once daily amLODIPine (Norvasc) 10 MG tablet Indications: Benign essential hypertension (CMS/HCC) Take 1 tablet by mouth once daily 30 tablet 3 03/26/2024 Active amLODIPine Benzoate (1 source) amLODIPine Benzo ate Active aspirin 81 mg delayed release oral tablet (10 sources) Platelet Aggregation Inhibitor, Nonsteroidal Anti-inflammatory Drug Start: take 1 tablet by mouth once daily aspirin 81 mg Oral EC Tab 81 mg = 1 tab(s), Oral, Daily Start Date: 02/22/24 Status: Ordered ASPIRIN 81 PO Ta ke by mouth. Active Baby Aspirin Act jett atorvastatin 80 mg oral tablet (10 sources) HMG-CoA Reductase Inhibitor Start: 02-22-2024 End: [...] 06/27/2021 Active cephalexin 500 mg oral capsule (4 sources) Cephalosporin Antibacterial Start: 07-06-2024 End: 10-23-2024 cephalexin (Keflex) 500 MG capsule 07/06/2024 10/23/2024 Discontinued (Other) empagliflozin 25 mg oral tablet (10 sources) Sodium-Glucose Cotransporter 2 Inhibitor Start: 02-22-2024 [...] Active hydrALAZINE hydrochloride 10 mg oral tablet (10 sources) Arteriolar Vasodilator Start: 04-24-2024 take 1 [...] mg / lisinopril 20 mg oral tablet (10 sources) Thiazide Diuretic, Angiotensin Converting Enzyme Inhibitor Start: 2023 take 2 tablets by mouth once daily lisinopril-hydroCHLOROthi azide 20-12.5 MG tablet Indications: Hypertriglyceridemia (CMS/HCC) Take 2 tablets by mouth once daily 200 tablet 3 07/24/2024 Active Start: 05-30-2024 take 2 tablets by mouth once daily lisinopril-hydroCHLOROthiazide 20-12.5 M G tablet Indications: Hypertriglyceridemia (CMS/HCC) Take 2 tablets by mouth once daily 80 tablet 05/30/2024 Active Start: 02-22-2024 take 1 tablet by bi th once daily hydrochlorothiazide-lisinopril 12.5 mg-2 0 mg Tab 1 tab(s), Oral, Daily Start Date: 02/22/24 Status: Ordered Lisinopril-hydro CHLOROthiazide Active 1.5 ml insulin glargine 300 unt/ml pen injector (9 sources) Insulin Analog Start: 10-23-2024 insulin glargi ne (Toujeo SoloStar) 300 UNIT/ML injection Indications: 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 6 mL 3 09/19/2024 10/23/2024 Discontinued Start: 03-16-2024 Toujeo SoloSta r 300 UNIT/ML injection Indications: Type [...] Active metoprolol tartrate 100 mg oral tablet (6 sources) beta-Adrenergic Alexandro Start: 04-24-2024 take 1 tablet by mouth in the morning metoprolol tartrate (Lopressor) 100 MG tablet Indications: Benign essential hypertension (CMS/HCC) Take 1 tablet (100 mg) by mouth in the morning and 1 tablet (100 mg) before bedtime. 180 tablet 3 04/24/2024 Active Metoprolol Succi lindsay Active ondansetron 4 mg disintegrating oral tablet (6 sources) Serotonin-3 Receptor Antagonist Start: 07-06-2024 End: 10-23-2024 ondansetron ODT (Zofran-ODT) 4 MG disintegrating tablet 07/06/2024 10/23/2024 Discontinued (Other) Start: 06-23-2021 End: 06-23-2021 ondansetron (ZOFRAN-ODT) dis integrating tablet 4 mg Start: 06-23-2021 ondansetron (Z OFRAN ODT) [address] 1 tablet under the tongue every 8 hours as needed for Nausea or Vomiting 10 tablet 0 06/23/2021 Active semaglutide 14 mg oral tablet (9 sources) Start: 10-22-2024 take 1 tablet by mouth once daily Rybelsus 14 MG tablet Indications: 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) Take 1 tablet by mouth once daily 30 tablet 10/22/2024 Active Start: 12-27-2023 take 1 tablet by once daily semaglutide (Rybelsus) 14 MG tablet Indications: 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) Take 1 tablet (14 mg) by mouth Daily 30 tablet 3 12/27/2023 Active sertraline 50 mg oral tablet (11 sources) Serotonin Reuptake Inhibitor Start: 02-22-2024 take [...] Date Documented Da te Episodic/Chronic Anxiety disorders (5 sources) Anxiety state; Translations: [Generalized anxiety disorder] Onset: 03-13-2023 03-13-2023 Chronic Asthma (4 sources) Asthma 02-17-2024 Chronic Biliary tract disease (4 sources) Biliary calculus 02-22-2024 Episodic Chronic obstructive pulmonary disease and bronchiectasis (3 sources) Bronchitis, not specified as acute or chronic; Translations: [Bronchitis] Episodic Coronary atherosclerosis and other heart disease (6 sources) Stable angina; Translations: [Stable angina pectoris (CMS/HCC)] Onset: 10-23-2024 10-23-2024 Chronic Deficiency and other anemia (4 sources) Anemia 02-22-2024 Episodic Diabetes mellitus with complications (14 sources) Renal disorder due to type 2 diabetes mellitus; Translations: [Type 2 diabetes mellitus with other diabetic kidney complication] Onset: 07-13-2019 03-13-2023 Chronic Diabetes mellitus without complication (9 sources) Diabetes mellitus; Translations: [Type 2 diabetes mellitus without complication] Onset: 03-13-2023 02-17-2024 Chronic Disorders of lipid metabolism (15 sources) Hypertriglyceridemi a; Translations: [Hyperchylomicronem ia] Onset: 03-13-2023 03-13-2023 Chronic Diverticulosis and diverticulitis (14 sources) Diverticulitis; Translations: [Diverticular disease] Onset: 11-12-2015 02-17-2024 Chronic Essential hypertension (13 sources) Hypertensive disorder; Translations: [Benign essential hypertension] Onset: 03-13-2023 02-17-2024 Chronic Fracture of upper limb (4 sources) Fracture of radius 02-22-2024 Episodic Genitourinary symptoms and ill-defined conditions (4 sources) History of urinary tract infection 02-22-2024 Episodic Gout and other crystal arthropathies (10 sources) Primary gout; Translations: [Idiopathic gout, right ankle and foot] Onset: 03-13-2023 03-13-2023 Chronic Headache; including migraine (4 sources) Headache 02-22-2024 Episodic Malaise and fatigue (5 sources) Fatigue; Translations: [Chronic fatigue, unspecified] Onset: 03-13-2023 03-13-2023 Chronic Mood disorders (4 sources) Depressive disorder 02-17-2024 Chronic Other diseases of bladder and urethra (5 sources) Urethral stricture; Translations: [Unspecified urethral stricture, female] Onset: 02-22-2024 Episodic Other gastrointestinal disorders (4 sources) Irritable bowel syndrome 02-17-2024 Chronic Other nervous system disorders (5 sources) Abdominal neuropathy; Translations: [Other disorders of peripheral nervous system] Onset: 03-13-2023 03-13-2023 Chronic Other non-traumatic joint disorders (5 sources) Arthropathy; Translations: [Arthropathy, unspecified] Onset: 12-07-2011 03-13-2023 Chronic Other nutritional; endocrine; and metabolic disorders (5 sources) Cholesterol level - finding; Translations: [Lipoprotein deficiency] Onset: 03-13-2023 03-13-2023 Chronic Other nutritional; endocrine; and metabolic disorders (5 sources) Lipoprotein deficiency disorder; Translations: [Lipoprotein deficiency] Onset: 02-22-2018 09-19-2023 Chronic Other nutritional; endocrine; and metabolic disorders (7 sources) Obesity caused by energy imbalance; Translations: [Morbid (severe) obesity due to excess calories] Onset: 04-24-2024 04-24-2024 Chronic Other nutritional; endocrine; and metabolic disorders (7 sources) Body mass index 30+ - obesity; Translations: [Body mass index (BMI) 37.0-37.9, adult] Onset: 04-24-2024 04-24-2024 Chronic Other upper respiratory disease (5 sources) Allergic rhinitis due to pollen; Translations: [...] Classification Problem Date Documented Da te Episodic/Chronic Conditions associated with dizziness or vertigo (5 sources) Dizziness; Translations: [Dizziness and giddiness] Onset: 04-24-2024 04-24-2024 Episodic Diabetes mellitus without complication (5 sources) Abnormal glucose level; Translations: [Other abnormal glucose] Onset: 05-09-2008 03-13-2023 Episodic Immunizations and screening for infectious disease (5 sources) Suspected clinical finding; Translations: [Encounter for observation for suspected exposure to other biological agents ruled out] Onset: 09-30-2020 09-19-2023 Episodic Other diseases of kidney and ureters (5 sources) Disorder of kidney and/or ureter; Translations: [Disorder of kidney and ureter, unspecified] Onset: 05-09-2008 03-13-2023 Episodic Residual codes; unclassified (5 sources) Acquired absence of cervix and uterus; Translations: [Acquired absence of both cervix and uterus] Onset: 03-13-2023 03-13-2023 Episodic Residual codes; unclassified (5 sources) History of hysterectomy for benign disease; Translations: [Acquired absence of both cervix and uterus] Onset: 03-13-2023 03-13-2023 Episodic Unclassified (1 source) Contact with and (suspected) exposure to covid-19 Z20.822 Varicose veins of lower extremity (5 sources) Venous varices; Translations: [Asymptomatic varicose veins of unspecified lower extremity] Onset: 05-09-2008 03-13-2023 Episodic Viral infection (1 source) COVID-19 Results Test Name Value Interpretation Reference Range Facility Laboratory - Hematology and Cell countson 10-23-2024 HbA1c (Bld) [Mass fraction] 6 % [facility] No Panel Informationon 10-23 Interpretation and review of laboratory results Abnormal [facility] Laboratory - Microbiology an d Antimicrobial susceptibilityon 07-17-2024 Bacteria identified Cx Nom (U) [facility] URINE CULTURE, ROUTINEon Bacteria identified Cx Nom (U) Urine Culture, Routine Klebsiella pneumoniae [facility] Bacteria identified Cx Nom (U) *ABNORMAL* [facility] Bacteria identified Cx Nom (U) Cefazolin <=4 ug/mL [facility] are Bacteria identified Cx Nom (U) Cefazolin with an OBDULIA <=16 predicts susceptibility to the [facility] Bacteria identified Cx Nom (U) oral agents [facility] Bacteria identified Cx Nom (U) cefaclor, cefdinir, cefpodoxime, cefprozil, cefuroxime, [facility] Bacteria identified Cx Nom (U) cephalexin, [facility] Bacteria identified Cx Nom (U) and loracarbef when used for therapy of uncomplicated [facility] Bacteria identified Cx Nom (U) urinary tract [facility] Bacteria identified Cx Nom (U) infections due to E. coli, Klebsiella pneumoniae, and [facility] Bacteria identified Cx Nom (U) Proteus [facility] Bacteria identified Cx Nom (U) mirabilis. [facility] Bacteria identified Cx Nom (U) Greater than 100,000 colony forming units per mL [facility] Bacteria identified Cx Nom (U) O:KLEPNE Isolated [facility] Bacteria identified Cx Nom (U) * This is a corrected result. * [facility] Bacteria identified Cx Nom (U) A prior result that was reported as final has been changed. [facility] Bacteria identified Cx Nom (U) Organism: [...] FREE TEXT SOURCE: DEA SIMS PA-C, PA-C, JENNIFER E FINAL REPORTS Final Report [] Verified Date/Time: [...] Locations R1: This test was performed at: [facility], [address] [place] [address], [phone] , , Normal [facility] Comment on above: Performed By: #### [id number] #### [facility] [address] [place] [id number] Ambulatory Visit Summaryon 0 03-06-2024 Ambulatory Visit [...] DEA SIMS PA-C Where: [facility] RAD - MISCon 02-24-2024 [facility] MIS [id number] .00TIFF [facility] Consultation Noteon 02-23-20 Consultation Note [id number]. 00TIFF [facility] Screenson 02-23-2024 Screens [id number] .00TIFF [facility] Ambulatory Visit Summaryon 0 02-22-2024 Ambulatory Visit [...] DEA SIMS PA-C Where: [facility] Patient Educationon 02-22-20 24 Patient Education Urology [...] these instructions at home: Medicines ? Take [id number] and prescription medicines only as told by [...] provider. Document Revised: 05/01/2021 Document Reviewed: 05/01/2021 Chem[employer] Patient Education ? 2022 My Visual Brief. Matt Brown [facility] Urology Office/Clinic Noteon 02-22-2024 Urology [...] Contact Information LEVI NICOLE, DEA Faith, URL [address] [place] [address] Additional Instructions: 6 wks Patient Education Dysuria Documentation recorded by the scribmar Fisher accurately reflects the services(s) I performed [...] 50 mg= (more content not included)... Normal [facility] Comment on above: Result Comment: Elec tronically Signed By: DEA SIMS PA-C\.br\Date and Time Signed: 02/22/24 10:55 EDT\.br\Electronically Co-Signed By: Criselda Fisherbr\Date and Time Co-Signed: 02/22/24 10:49 EDT COVID/FLU RT-PCRon 2 SARS-CoV-2 (COVID-19) RNA ELBA+probe Ql (Unsp spec) Positive [facility] Other COVID/FLU RT-PCR Negative [facility] [employer] Other Quick Strepon 08-09-2022 S. pyogenes Org specific cx Ql (Throat) Negative [facility] Other Quick Strep [facility] Other XR CHEST (2 VW)on 06-23-2021 XR [...] Juancarlos York DO 06/23/21 Final result Normal [facility] XR CHEST (2 VW)Ordered By: Guerita Pool on 06-23-2021 No acute findings. [employer] Phone: EXAMINATION: TWO XRA Y VIEWS OF THE CHEST 06/23/2021 2:12 pm COMPARISON: None. HISTORY: ORDERING SYSTEM PROVIDED HISTORY: SOB TECHNOLOGIST PROVIDED HISTORY: SOB FINDINGS: Lungs are clear. Cardiac and mediastinal silhouettes unremarkable. Sternotomy wire sutures present. Osseous structures grossly intact. [employer] Phone: Babak, Mhpn Incoming Radiant Results From [employer] - 06/23/2021 2:19 PM EDT EXAMINATION: TWO XRAY VIEWS OF THE CHEST 06/23/2021 2:12 pm COMPARISON: None. HISTORY: ORDERING SYSTEM PROVIDED HISTORY: SOB TECHNOLOGIST PROVIDED HISTORY: SOB FINDINGS: Lungs are clear. Cardiac and mediastinal silhouettes unremarkable. Sternotomy wire sutures present. Osseous structures grossly intact. IMPRESSION: No acute findings. [employer] Phone: [facility] Phone: Vital Signs Date Time Vital Sign Value Performing Clinician Facility 10-23-2024 13:03-0500 Body height 152.4 cm Niles Ortiz MD Work Phone: [facility] 10-23-2024 13:03-0500 Body mass index (BMI) [Ratio] 35.54 kg/m2 Niles Ortiz MD Work Phone: [facility] 10-23-2024 13:03-0500 Body weight 82.56 kg Niles Ortiz MD Work Phone: [facility] 10-23-2024 13:03-0500 Diastolic blood pressure 82 mm[Hg] Niles Ortiz MD Work Phone: [facility] 10-23-2024 13:03-0500 Heart rate 75 /min Niles Ortiz MD Work Phone: [facility] 10-23-2024 13:03-0500 SaO2% (BldA) [Mass fraction] 96 % Niles Ortiz MD Work Phone: [facility] 10-23-2024 13:03-0500 Systolic blood pressure 132 mm[Hg] Niles Ortiz MD Work Phone: [facility] 07-11-2024 10:07-0400 Body height 152.4 cm Robert Dooley ACETALDEHYDE CONVERTER OPERATOR Work Phone: [facility] 07-11-2024 10:07-0400 Body mass index (BMI) [Ratio] 35.54 kg/m2 Robert Dooley ACETALDEHYDE CONVERTER OPERATOR Work Phone: [facility] 07-11-2024 10:07-0400 Body weight 82.56 kg Robert Dooley ACETALDEHYDE CONVERTER OPERATOR Work Phone: [facility] 07-11-2024 10:07-0400 Diastolic blood pressure 78 mm[Hg] Robert Dooley ACETALDEHYDE CONVERTER OPERATOR Work Phone: [facility] 07-11-2024 10:07-0400 Heart rate 70 /min Robert Dooley ACETALDEHYDE CONVERTER OPERATOR Work Phone: [facility] 07-11-2024 10:07-0400 SaO2% (BldA) [Mass fraction] 94 % Robert Dooley ACETALDEHYDE CONVERTER OPERATOR Work Phone: [facility] 07-11-2024 10:07-0400 Systolic blood pressure 110 mm[Hg] Robert Dooley NP Work Phone: [facility] 02-22-2024 10:23-0400 Blood Pressure Location DEA SIMS [facility] 02-22-2024 10:23-0400 Body temperature 97.88 [degF] DEA SIMS [facility] 02-22-2024 10:23-0400 Diastolic blood pressure 68 mm[Hg] DEA LEVI [facility] 02-22-2024 10:23-0400 Heart rate 90 /min DEA SIMS [facility] 02-22-2024 10:23-0400 Systolic blood pressure 110 mm[Hg] DEA SIMS [facility] 08-09-2022 11:55-0500 Body height 149.86 cm Brooklyn Alcala Other [facility] Other 08-09-2022 11:55-0500 Body mass index (BMI) [Ratio] 42.41 kg/m2 Brooklyn Alcala Other [facility] Other 08-09-2022 11:55-0500 Body temperature 98.4 [degF] Brooklyn Alcala Other [facility] Other 08-09-2022 11:55-0500 Body weight 95.26 kg Brooklyn Alcala Other [facility] Other 08-09-2022 11:55-0500 Respiratory rate 18 /min Brooklyn Alcala Other [facility] Other 08-09-2022 11:55-0500 SaO2% (BldA) [Mass fraction] 96 % Brooklyn Alcala Other [facility] Other 06-23-2021 16:25-0400 Heart rate 99 /min Niles Angel Work Phone: [employer] Work Phone: 06-23-2021 16:25-0400 SaO2% (BldA) [Mass fraction] 95 % Techulonlexi Angel Work Phone: [employer] Phone: 06-23-2021 14:04-0400 Diastolic blood pressure 84 mm[Hg] Kristielexi Llamasa Work Phone: [facility] Work Phone: 06-23-2021 14:04-0400 Systolic blood pressure 132 mm[Hg] [place] Work Phone: [employer] Phone: 06-23-2021 14:02-0400 Body temperature 99.3 [degF] Niles Angel Work Phone: [employer] Work Phone: 06-23-2021 14:02-0400 Respiratory rate 17 /min Niles Angel Work Phone: [employer] Phone: Encounters Encounter Date Encounter Type Care Provider Facility Start: 10-23-2024 End: 10-23-2024 Office outpatient visit 25 minutes Niles Ortiz MD Work Phone: [facility] Comment on above: Stable angina pector is (CMS/HCC) (Primary Dx); 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); Morbid (severe) obesity due to excess calories (CMS/HCC); Essential (primary) hypertension (CMS/HCC); Body mass index (BMI) 35.0-35.9, adult Start: 10-23-2024 End: 10-23-2024 ambulatory NILES ORTIZ Not Available Start: 07-11-2024 End: 07-11-2024 Office outpatient visit 25 minutes Robert Dooley ACETALDEHYDE CONVERTER OPERATOR Work Phone: [facility] Comment on above: Urinary tract infect ion with hematuria, site unspecified (Primary Dx); Bronchitis Start: 07-11-2024 End: 07-11-2024 ambulatory ROBERT DOOLEY Not Available Start: 07-06-2024 End: 07-17-2024 [facility] Result Encounter Generic External Data Provider [facility] External Department Unsolicited Start: 07-06-2024 End: 07-17-2024 [facility] Result Encounter Generic External Data Provider [facility] External Department Unsolicited Start: 05-08-2024 End: 05-08-2024 ambulatory DEA SIMS Facility:[facility] Start: 05-08-2024 End: 05-08-2024 Patient encounter procedure DEA ROWLANDRY [facility] Start: 04-24-2024 End: 04-24-2024 ambulatory NILES ORTIZ Not Available Start: 03-06-2024 End: 03-06-2024 Lab Drop off DEA ROWLANDRY [facility] Start: 03-06-2024 End: 03-06-2024 ambulatory DEA Mar LEVI Facility:[facility] Start: 03-06-2024 End: 03-06-2024 Patient encounter procedure DEA Mar LEVI [facility] Start: 02-22-2024 End: 02-22-2024 ambulatory DEA Mar LEVI Facility:[facility] Start: 02-22-2024 End: 02-22-2024 Patient encounter procedure DEA E LEVI [facility] Katerina Start: 08-09-2022 End: 08-09-2022 ambulatory Brooklyn Alcala Other [facility] [employer] Other Start: 08-09-2022 Office outpatient ne w 20 minutes Brooklyn Alcala [facility] Start: 02-01-[address] NILES ORTIZ Facility: [facility] Start: 01-04-2022 End: 01-05-[address] NILES ORTIZ Facility:[facility] Start: 06-23-2021 Emergency department patient visit [facility] Start: 06-23-2021 End: 06-23-2021 [facility] Comment on above: COVID-19 (Primary Dx ) Procedures Date Procedure Procedure Detail Performing Clinician Start: 10-23-2024 Hemoglobin glycosylated a1c Niles Ortiz MD Work Phone: Start: 07-06-2024 Bacteria identified in Urine by Culture Generic External Data Provider Start: 06-23-2021 Radiologic exam chest 2 views Nano Pool DO Work Phone: Start: 01-23-2021 Mammography Robert danielle NP Work Phone: Start: 05-24-2016 Colonoscopy Robert danielle NP Work Phone: Start: 10-03-2015 Colonoscopy DEA LEONARD [...] DTaP/Tdap/Td vaccine (2 - Td or Tdap) [facility] Work Phone: Start: 09-03-2026 Glaucoma screening Diabetes: R etinopathy Screening [facility] Start: 05-24-2026 Screening for malign ant neoplasm of colon [facility] Start: 09-02-2025 Glaucoma screening Diabetes: R etinopathy Screening [facility] Start: 04-24-2025 Urine screening for protein Diabetes: Urine Protein Screening [facility] Start: 01-21-2025 Hemoglobin A1c measurement Diabetes: Hemoglobin A1C [facility] Start: 12-18-2024 Influenza vaccination Influenza Vacc ine (#1) [facility] Comment on above: Postponed from 06/03 (Patient Refused) Start: 10-23-2024 End: 10-23-2026 NM Heart Perfusion W single state of exercise Stress test with myocardial perfusion Cardiac Nuclear Medicine Routine 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) Essential (primary) hypertension (CMS/HCC) Stable angina pectoris (CMS/HCC) Expected: 10/23/2024 (Approximate), Expires: 10/23/2026 [facility] Work Phone: Comment on above: Expected: 10/23/2024 (Approximate), Expires: 10/23/2026 Start: 10-23-2024 End: 10-23-2024 Patient encounter procedure 10/23/2024 1:00 PM EST Office Visit [facility] [address] [facility] [address] [place] [address] Niles Ortiz MD [address] [facility] [address] [place] [address] [facility] Start: 07-25-2024 Hemoglobin A1c measurement Diabetes: Hemoglobin A1C [facility] Start: 06-03-2024 Influenza vaccination Influenza Vacc ine (#1) [facility] Start: 01-23-2022 Screening for malign ant neoplasm of breast Mammogram [facility] Start: 06-03-2021 Influenza vaccination Flu vaccine (# 1) [facility] Work Phone: Start: 2016 Lipid panel Lipid screen [facility] Work Phone: Start: 10-10-2014 Creatinine measurement Creatinine mo nitoring [facility] Work Phone: Start: 10-10-2014 Potassium monitoring Potassium monit oring [facility] Work Phone: Start: 2010 Screening for malign ant neoplasm of breast Breast cancer screen [facility] Phone: Start: 2010 Shingles Vaccine (1 of 2) Shingles Vaccine (1 of 2) [facility] Phone: Start: 2005 Screening for malign ant neoplasm of colon Colon cancer screen colonoscopy [facility] Work Phone: Start: 1975 HIV screening HIV screen [facility] Work Phone: Start: 1960 Hepatitis C screening Hepatitis C sc reen [facility] Work Phone: Start: 1960 Screening for malign ant neoplasm of colon [facility] Immunizations Immunization Date Immunization Notes Care Provider Kaci espinoza 07-20-2021 influenza virus vacc ine, unspecified formulation DEA SIMS [facility] 07-20-2021 influenza, injectabl e, quadrivalent, preservative free Robert Dooley NP Work Phone: [facility] 01-08-2021 SARS-CoV-2 (COVID-19 ) mRNA [id number] vax DEA SIMS [facility] 12-18-2020 SARS-CoV-2 (COVID-19 ) mRNA [id number] vax DEA SIMS [facility] 06-05-2020 influenza virus vacc ine, unspecified formulation DEA LEVI [facility] 06-05-2020 influenza, high dose seasonal, preservative-free Robert Soumya ACETALDEHYDE CONVERTER OPERATOR Work Phone: [facility] 06-05-2020 influenza, injectabl e, quadrivalent, preservative free Robert Soumya ACETALDEHYDE CONVERTER OPERATOR Work Phone: [facility] 09-07-2018 influenza virus vacc ine, unspecified formulation DEA LEVI [facility] 09-07-2018 influenza, injectabl e, quadrivalent, preservative free Robert Soumya ACETALDEHYDE CONVERTER OPERATOR Work Phone: [facility] 09-07-2018 pneumococcal polysaccharide vaccine, 23 valent DEA LEVI [facility] 09-07-2018 seasonal influenza, intradermal, preservative free Robert Soumya ACETALDEHYDE CONVERTER OPERATOR Work Phone: [facility] 09-07-2018 tetanus toxoid, redu jerry diphtheria toxoid, and acellular pertussis vaccine, adsorbed DEA ROWLANDRY [facility] Payers Date Payer Category Payer [facility] er [id number] 2022 Unknown BCBS BCBS [id number] 2022-Present [phone] [address] [place] [address] [id number] 1960 Unknown [id number] [id number]. 2.593 1960 Unknown [id number] [id number]. 2.593 1960 Unknown [id number] [id number]. 2.727 1960 Unknown [id number] [id number]. 2.727 1960 Unknown [id number] [id number]. 2.727 1960 Unknown [id number] [id number]. 2.727 1960 Unknown [id number] [id number]. 2.1259 1960 Unknown [id number] 2.16.840.1.002893.3.579. 2.1259 1960 Unknown [id number] [id number]. 2.1259 1959 Unknown [id number] [facility] [id number] Social History Date Type Detail Facility Start: 10-10-2013 End: 03-05-2023 Tobacco smoking status [facility] Never smoker [facility] Start: 1960 Sex Assigned At Not on file [facility] Tomveyi Bidamon Work Phone: Exposure to SARS-CoV -2 (event) Yes [facility] Start: 07-11-2024 End: 10-23-2024 Sex Assigned At [facility] Start: 02-22-2024 Tobacco smoking status Never [facility] Start: 07-11-2024 End: 10-23-2024 Alcoholic beverage intake Lifetime non-drinker (finding) [facility] Start: 07-11-2024 End: 10-23-2024 History of Social function [facility] Are [...] Facility 02-22-2024 Functional Status N/A [facility] Clinical Notes 06-23-2021 to 10-23-2024 Niles Ortiz MD - 10/23/2024 1:20 PM Antonio Ortiz MD - 10/23/2024 1:20 PM Antonio Ortiz MD - 10/23/2024 1:20 PM Antonio Ortiz MD - 10/23/2024 1:19 PM EST Note Date & Type Note Facility 10-23-2024 History of Present illness Narrative Associated Problem(s): Essential (primary) hypertension (CMS/HCC) Our specific goals, for your hypertension, is to keep your blood pressure less than 140/90, and the importance of weight control. We made recommendations on how to control your blood pressure, and minimize your risk of these copmplications. We also discussed your current barriers to a healthy living and importance of healthy diet and exercise. Prior to your visit today we have reviewed your chart and formed a plan to assist with providing you the best possible care. We reviewed the possible complications of hypertension including, stroke, heart failure and kidney impairment. In addition, we discussed your medications, the importance of taking them as prescribed. DASH diet handouts Associated Problem(s): Body mass index (BMI) 35.0-35.9, adult Weight loss encouraged Associated Problem(s): Morbid (severe) obesity due to excess calories (CMS/HCC) Diet and Exercise Encouraged Associated Problem(s): 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) No Tobacco use Follow ADA 1800 diet low carbohydrate Continue Med Compliance Goal LDL less than 100 Goal BP 130/80 Goal HgbA1c < 7.0% Monitor Feet, monitor for infection Needs Exercise Yearly eye exams Prior to your visit today we reviewed your chart and outlined testing and treatment needed for your care. Reviewed poissble complications of diabetes including, loss of vision, kidney failure and increased risk of heart attacks and stroke. We made recommendations on how to control your blood sugars, and minimize your risk of these complications. We discussed your current barriers to a healthy living and importance of healthy diet and exercise. Images from the original note were not included. HPI Diabetes Additional comments: Last A1c was 6.5 Last edited by Noreen Gonzalez MA on 10/23/2024 12:52 PM. Subjective Patient ID: Airam Silvreio is a 64 y.o. female who presents for Diabetes (Last A1c was 6.5). Pt states sugars been less than 150 Went to the ER day after Jan. W/U Chest pain was negative Diabetes She presents for her follow-up diabetic visit. She has type 2 diabetes mellitus. No MedicAlert identification noted. The initial diagnosis of diabetes was made 5 years ago. Her disease course has been stable. Pertinent negatives for hypoglycemia include no dizziness. There are no diabetic associated symptoms. Pertinent negatives for diabetes include no chest pain, no polydipsia, no polyphagia, no polyuria and no weight loss. There are no hypoglycemic complications. Symptoms are stable. There are no known risk factors for coronary artery disease. She is compliant with treatment all of the time. Her weight is stable. She is following a diabetic diet. She has not had a previous visit with a dietitian. She participates in exercise intermittently. There is no change in her home blood glucose trend. Her breakfast blood glucose is taken between 6-7 am. Her breakfast blood glucose range is generally 110-130 mg/dl. An ASPEN inhibitor/angiotensin II receptor alexandro is being taken. She does not see a cheese grader.Eye exam is current. Current Outpatient Medications on File Prior to Visit Medication Sig Dispense Refill albuterol HFA (Proventil HFA) 90 mcg/act inhaler Inhale 2 puffs every 4 (four) hours if needed for wheezing. allopurinol (Zyloprim) 300 MG tablet Take 1 tablet (300 mg) by mouth Daily 30 tablet 3 amLODIPine (Norvasc) 10 MG tablet Take 1 tablet (10 mg) by mouth Daily 30 tablet 3 ASPIRIN 81 PO Take [...] Take 2 tablets by mouth once daily 200 tablet 3 metoprolol tartrate (Lopressor) 100 MG tablet Take 1 tablet (100 mg) by mouth in the morning and 1 tablet (100 mg) before bedtime. 180 tablet 3 Rybelsus 14 MG tablet Take 1 tablet by mouth once daily 30 tablet 0 sertraline (Zoloft) 50 MG tablet Take 1 tablet (50 mg) by mouth 1 (one) time each day at the same time 100 tablet 4 [DISCONTINUED] cephalexin (Keflex) 500 MG capsule [DISCONTINUED] insulin glargine (Toujeo SoloStar) 300 UNIT/ML injection INJECT 66 UNITS SUBCUTANEOUSLY ONCE DAILY INCREASE BY 2 UNITS EVERY 2 DAYS UNTIL SUGARS ARE LESS THAN 120 FASTING. 6 mL 3 [DISCONTINUED] ondansetron ODT (Zofran-ODT) 4 MG disintegrating tablet [DISCONTINUED] semaglutide (Rybelsus) 14 MG tablet Take 1 tablet (14 mg) by mouth Daily 30 tablet 3 No current facility-administered medications on file prior [...] 1999 Type 2 diabetes mellitus without complication (CMS/HCC) UTI (urinary tract infection) Past Surgical History: Procedure Laterality Date CHEST XRAY 2013 CHEST PAIN CHOLECYSTECTOMY [address] Montero COLONOSCOPY 05/24/2016 Dr. montero Internal hemorhoid, Spastic Colon CT/HEAD 2013 HEADACHE EKG 2013 CHEST PAIN LAPAROTOMY OOPHERECTOMY Left MASS EXCISION removal chest mass ORIF RADIAL SHAFT FRACTURE FL MED [place] MEDS NOS 2009 BACTRIUM DS & TYLENOL #3;Disease:OTITIS MEDIA- RIGHT THYROIDECTOMY 2011 Goiter Partial TONSILLECTOMY 1963 TOTAL ABDOMINAL HYSTERECTOMY W/ BILATERAL SALPINGOOPHORECTOMY 2007 NOT cervical Cancer Visit Vitals BP 132/82 Pulse 75 Ht 5' Wt 182 lb SpO2 96% BMI 35.54 kg/m Smoking Status Never BSA 1.87 m Review of Systems Constitutional: Negative for activity change, appetite change, chills, fever and weight loss. HENT: Negative for sinus pressure and sinus pain. Sinus pressure has improved Respiratory: Negative for cough. Cardiovascular: Negative. Negative for chest pain. Gastrointestinal: Negative. Genitourinary: Negative. Musculoskeletal: Negative. Skin: Negative. Neurological: Negative for dizziness. Psychiatric/Behavioral: Negative. All other systems reviewed and are negative. Endocrine: Negative for polydipsia, polyphagia and polyuria. Objective Physical Exam Constitutional: General: She is not in acute distress. Appearance: She is well-developed. She is obese. HENT: Head: Normocephalic and atraumatic. Eyes: General: No scleral icterus. Conjunctiva/sclera: Conjunctivae normal. Neck: Thyroid: No thyromegaly. Vascular: No carotid bruit. Cardiovascular: Rate and Rhythm: Normal rate and regular rhythm. Heart sounds: Normal heart sounds. No murmur heard. Pulmonary: Effort: Pulmonary effort is normal. No respiratory distress. Breath sounds: Normal breath sounds. No wheezing, rhonchi or rales. Abdominal: General: There is no distension. Palpations: Abdomen is soft. Tenderness: There is no abdominal tenderness. There is no right CVA tenderness, left CVA tenderness or guarding. Skin: General: Skin is warm and dry. Neurological: General: No focal deficit present. Mental Status: She is alert and oriented to person, place, and time. Psychiatric: Mood and Affect: Mood normal. Behavior: Behavior normal. Office Visit on 10/23/2024 Component Date Value Ref Range Status Hemoglobin A1C 10/23/2024 6.0 Final Assessment/Plan Problem List Items Addressed This Visit Essential (primary) hypertension (CMS/HCC) Our specific goals, for your hypertension, is to keep your blood pressure less than 140/90, and the importance of weight control. We made recommendations on how to control your blood pressure, and minimize your risk of these copmplications. We also discussed your current barriers to a healthy living and importance of healthy diet and exercise. Prior to your visit today we have reviewed your chart and formed a plan to assist with providing you the best possible care. We reviewed the possible complications of hypertension including, stroke, heart failure and kidney impairment. In addition, we discussed your medications, the importance of taking them as prescribed. DASH diet handouts Relevant Orders Stress test with myocardial perfusion 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) No Tobacco use Follow ADA 1800 diet low carbohydrate Continue Med Compliance Goal LDL less than 100 Goal BP 130/80 Goal HgbA1c < 7.0% Monitor Feet, monitor for infection Needs Exercise Yearly eye exams Prior to your visit today we reviewed your chart and outlined testing and treatment needed for your care. Reviewed poissble complications of diabetes including, loss of vision, kidney failure and increased risk of heart attacks and stroke. We made recommendations on how to control your blood sugars, and minimize your risk of these complications. We discussed your current barriers to a healthy living and importance of healthy diet and exercise. Relevant Medications insulin glargine (Toujeo SoloStar) 300 UNIT/ML injection Other Relevant Orders POCT Glycated hemoglobin, total (Completed) Stress test with myocardial perfusion Morbid (severe) obesity due to excess calories (CMS/HCC) Diet and Exercise Encouraged Body mass index (BMI) 35.0-35.9, adult Weight loss encouraged Stable angina pectoris ([facility]) - Primary Relevant Orders Stress test with myocardial perfusion Follow up in about 6 months (around 04/22/2025) for Diabetes. documented in this encounter [facility] 07-11-2024 History of Present illness Narrative Images [...] Allergic reaction and dyspnea Allergies Anemia Asthma ([facility]/HCC) Chest pain Cholelithiasis 2013 Contusion of left hand COVID-19 06/23/2021 Depression (CMS/HCC) Diabetes (CMS/HCC) Diverticulosis Goiter (CMS/HCC) 2011 Head contusion Headache Hypertension ([facility]/HCC) Irritable bowel syndrome 2014 Migraine headache ([facility]) Otitis media, right Radial fracture 1999 Type 2 diabetes mellitus without complication ([facility]) UTI (urinary tract infection) Past Surgical History: Procedure Laterality Date CHEST XRAY 2012 CHEST PAIN CHOLECYSTECTOMY 2012 Cholelithiasis COLONOSCOPY 2013 Dr. Montero COLONOSCOPY 05/24/2016 Dr. montero Internal hemorhoid, Spastic Colon CT/HEAD 2013 HEADACHE EKG 2013 CHEST PAIN LAPAROTOMY OOPHERECTOMY Left MASS EXCISION removal chest mass ORIF RADIAL SHAFT FRACTURE [place] MED [place] MEDS NOS 2009 BACTRIUM DS [...] follow-ups on file. documented in this encounter [facility] 02-22-2024 Hospital Discharge instructions Patient Education 02/22/2024 [...] Follow these instructions at home: Medicines Take iool-eki-jqjdshx and prescription medicines only as told by [...] provider. Document Revised: 05/01/2021 Document Reviewed: 05/01/2021 [employer] Patient Education 2022 My Visual Brief. Follow Up Care 01/16/2024 11:44:07 With:DEA SIMS PA-C, URL Address: [address] [address] When: Unknown [facility] [employer] 08-09-2022 Evaluation note Encounter Date Diagnosis Assessment [...] weeks for the cough to go away. [employer] Other 09-21-2021 Hospital Discharge instructions* Discharge Instr [...] for Wt Mental Status: {IP PT MENTAL STATUS:58682} IV Access: { RONNI IV ACCESS:839788856} Nursing Mobility/ADLs: Walking {CHP DME ADLs:698478924} Transfer {CHP DME ADLs:349064946} Bathing {CHP DME ADLs:653050549} Dressing {CHP DME ADLs:822381039} Toileting {CHP DME ADLs:587651064} Feeding {CHP DME ADLs:153375883} Tool Grinding Technician {P DME ADLs:177194839} Med Delivery { RONNI MED Delivery:535717704} Wound Care Documentation and Therapy: Elimination: Continence: Bowel: {YES / NO:} Bladder: {YES / NO:} Urinary Catheter: {Urinary Catheter:049726330} Colostomy/Ileostomy/Ileal Conduit: {YES / NO:} Date of Last BM: No intake or output data in the 24 hours ending 06/23/21 1601 No intake/output data recorded. Safety Concerns: { RONNI Safety Concerns:620364372} Impairments/Disabilities: { RONNI Impairments/Disabilities:149368258} Nutrition Therapy: Current Nutrition Therapy: { RONNI Diet List:816868582} Routes of Feeding: {[facility] DME Other Feedings:152374536} Liquids: {Fleshing Machine Operator liquid thickness:87665} Daily Fluid Restriction: {CHP DME Yes amt example:579201509} Last Modified Barium Swallow with Video (Video Swallowing Test): {Done Not Done Date:} Treatments at the Time of Hospital Discharge: Respiratory Treatments: Oxygen Therapy: {Therapy; copd oxygen:47776} Ventilator: { CC Vent List:141156730} Rehab Therapies: {THERAPEUTIC INTERVENTION:0478522407} Weight Bearing Status/Restrictions: {[facility] Weight Bearin} Other Medical Equipment (for information only, NOT a DME order): {EQUIPMENT:323304681} Other Treatments: Patient's personal belongings (please select all that are sent with patient): {CHP DME Belongings:567338029} RN SIGNATURE: {Esignature:918085005} CASE MANAGEMENT/SOCIAL WORK SECTION Inpatient Status Date: Readmission Risk Assessment Score: Readmission Risk Risk of Unplanned Readmission: 0 Discharging to Facility/ Agency Name: Address: Phone: Fax: Dialysis Facility (if applicable) Name: Address: Dialysis Schedule: Phone: Fax: Guest Request Runner/Application Support Lead signature: {Esignature:391826293} PHYSICIAN SECTION Prognosis: {Prognosis:6062572221} Condition at Discharge: { Patient Condition:638259870} Rehab Potential (if transferring to Rehab): {Prognosis:3836528945} Recommended Labs or Other Treatments After Discharge: Physician Certification: I certify the above information and transfer of Airam Silverio is necessary for the continuing treatment of the diagnosis listed and that she requires {Admit to AppropriateLevel of Care:08546} for {GREATER/LESS:533504426} 30 days. Update Admission H&P: {CHP DME Changes in HandP:628673095} PHYSICIAN SIGNATURE: {Esignature:357579169} * Attachments The following attachments cannot be sent through Care Everywhere. * Coronavirus Disease (COVID-19): General Info (Welsh) documented in this [facility] Work Phone: evaluation + Plan note Future Appointments Appointment Date:05/01/2024 08:40:00 AM Scheduled Provider:DEA SIMS PA-C Location:[facility] Appointment Type:URO Office Visit [facility] evaluation + Plan note Future Appointments Appointment Date:05/01/2024 08:40:00 AM Scheduled Provider:DEA SIMS PA-C Location:[facility] Appointment Type:URO Office Visit Diagnostic Tests Pending * [facility]- Primary documented in this encounter [facility] Work Phone: evaluation note* Diagnosis Urinary tract infection with hematuria, site unspecified- Primary Bronchitis Bronchitis, not specified as acute or chronic [facility] Diagnosis Hyperchylomicronemia (CMS/HCC)- Primary Hyperchylomicronemia Anxiety state ([facility]) Anxiety state, unspecified 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) Benign essential hypertension ([facility]/HCC) Essential hypertension, benign Dizziness- Primary Dizziness and giddiness Abnormal glucose tolerance test Impaired glucose tolerance test Benign essential hypertension (CMS/HCC) Essential hypertension, benign Annual physical exam Routine general medical examination at a health care facility Type 2 diabetes mellitus with other diabetic kidney complication ([facility]/HCC) Hypertriglyceridemia (CMS/HCC) Pure hyperglyceridemia Hyperchylomicronemia (CMS/HCC) Hyperchylomicronemia Anxiety state ([facility]) Anxiety state, unspecified Morbid (severe) obesity due to excess calories ([facility]) Body mass index (BMI) 37.0-37.9, adult Stable angina pectoris ([facility]/HCC)- Primary Type 2 diabetes mellitus with other diabetic kidney complication ([facility]/HCC) Morbid (severe) obesity due to excess calories ([facility]/HCC) Essential (primary) hypertension ([facility]) Unspecified essential hypertension Body mass index (BMI) 35.0-35.9, adult documented [facility] N[facility] - Reported* Type Description Date Medical History Hypertension Medical History type II diabetes Medical History [address] Other Hospital course Narrative No data available for this section [facility] Discharge instructions No data available for this section [facility] progress note No data available for this section [facility] Summary Purpose Family History No Family History [...] on 07/06 was given keflex and zofran Reason Comments Diabetes Last A1c was 6.5 Ordered Prescriptions (unrec ognized section and content) [...] AUTHOR AUTHOR'S ORGANIZ ATION 03/09/2024 [facility] DATE CREATED AUTHOR AUTHOR'S ORGANIZ ATION 03/10/2024 [facility] DATE CREATED AUTHOR AUTHOR'S ORGANIZ ATION 05/11/2024 [facility] DATE CREATED AUTHOR AUTHOR'S ORGANIZ ATION 10/25/2024 [facility] dical Specialists EPIC Patient Care team informatio n (unrecognized section and content) 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 [facility] provides no warranty or guarantee of the accuracy or completeness of information in this document.
[2024-11-14] MEDS: REGADENOSON 0.4 MG/5 ML SYRINGE IV (09:46)
--- NOTE | 2024-11-14 10:08 | PC.NURSE ---
Nursing Note Cardiac Stress Test Reviewed: Medication, allergies and patient history reviewed. Stress Test: [ x] Patient tolerated stress test well. [ ] Patient unable to tolerate walking on treadmill. Switched to Lexiscan stress test. [x ] No chest pain noted per patient [ ] Chest pain that resolved prior to leaving stress lab. [x ] No dyspnea noted. [ ] Dyspnea that resolved prior to leaving stress lab. [x ] Patient left stress lab asymptomatic and hemodynamically stable. [ ] Patient taken to the Emergency Room due to non-resolving symptoms following stress test. [ ] Patient achieved target heart rate. [ ] Patient unable to achieve target heart rate. [ ] Aminophylline administered as reversal agent to Lexiscan (Regadenoson). [ ] Nitro administered. Nursing Comments:Pt had Lexiscan stress test done. Tolerated well. No issues noted. Pt ambulated to cafeteria following test to eat prior to second set of images.
--- NOTE | 2024-11-14 11:04 | P.STRESS_ITS ---
Stress Test Stress Test Allergies Allergy/AdvReac Type Severity Reaction Status Date / Time ciprofloxacin (From Cipro) Allergy Hives Verified 07/06/24 10:54 Penicillins Allergy Hives Verified 07/06/24 10:54 Requesting physician: MARK ORTIZ Procedure: Lexiscan Cardiolite stress test General Information: Reason for Stress Test: Angina Cardiac History and Risk Factors: HTN, former smoker, diabetic, had an unspecified cardiac tumor removed Resting 12 - Lead Electrocardiogram: Normal sinus rhythm at 85 Normal axis T-waves inverted in aVL No ST-segment abnormalities Stress Test: Protocol: Lexiscan protocol was initiated with injection of 0.4mg Lexiscan IV push followed by Cardiolite. Blood pressure: Initial: 106/65, Maximum: 124/70 Rate & rhythm: Patient remained in sinus rhythm during the exercise and recovery portions of the study.? The maximum heart rate was 100, which was 64% of the maximum predicted heart rate. ST-segments & T-waves: There were no T-wave changes and no ST-segment changes when compared to the baseline EKG. Patient response/symptoms: There were no symptoms similar to the chief complain t. Interpretation: Normal Lexiscan stress test without electrocardiographical evidence of ischemia. Asymptomatic of chief complaint. Cardiolite imaging interpretation will be reported separately. Clinical correlation required.?
== END 2024-11-14 07:42 | disposition home or self-care (01) ==
LOC: NM 07:42
PROVIDERS: PCP Family Medicine; Visit Provider Family Medicine
DX: I20.89 Other forms of angina pectoris (principal); I10 Essential (primary) hypertension
CPT/HCPCS: 78452; 93017; A9500; J2785

== ENCOUNTER 2025-05-28 09:33 | Outpatient (OUT) | payer BC, SELFPAY ==
--- OUTSIDE RECORDS SUMMARY | 2025-05-28 09:39 | XMS_ITS | CCD ---
Author Organization [facility] Care Team Providers Care Check Weigher Name Role Phone Niles Ortiz Primary Care Provider NILES ORTIZ Primary Care Unavailable ANGEL, DR FLORES Primary Care Unavailable ANGEL, DR FLORES Attending Unavailable ANGEL, DR FLORES Admitting Unavailable ANGEL, DR FLORES Attending Unavailable ANGEL, DR FLORES Admitting Unavailable ANGEL, DR FLORES Primary Care Unavailable Brooklyn Alcala Unavailable NILES ORTIZ Primary Care Physician [phone] DEA SIMS Attending Unavailable DEA SIMS Attending Unavailable DEA SIMS Attending Unavailable DEA SIMS Admitting Unavailable DEA SIMS Attending Unavailable Niles Ortiz MD Primary Care Provider Niles Ortiz MD Unavailable NILES ORTIZ Attending Unavailable NILES ORTIZ Attending Unavailable ROSINA FREY Attending Unavailable ROBERT DOOLEY Attending Unavailable Allergies Allergy Classification Reported Allergen(s) Allergy Type Date of Onset Reaction(s) Facility (6 sources) Penicillins; Translations: [penicillins] Propensity to adverse reactions to drug 10-10-19 14 Difficulty breathing (finding), Eruption of skin (disorder) [facility] (1 source) Ciprofloxacin Drug Allergy 01-07-20 14 [facility] (1 source) Penicillins Drug allergy (disorder) 01-07-20 14 [facility] (1 source) Sulfonamides (Antibiotic) Drug allergy (disorder) 01-07-20 14 [facility] (1 source) Misc-Food; Translations: [Misc-Food] Food allergy (disorder) 02-20-20 14 [facility] (1 source) Cat/Feline Product Derivatives Drug allergy (disorder) 02-20-20 14 [facility] (19 sources) Ciprofloxacin; Translations: [ciprofloxacin] Drug Allergy 03-13-20 23 hives, Weal (disorder) [facility] (1 source) Penicillin V Drug Allergy hives [facility] Other (13 sources) Ciprofloxacin Drug Allergy 03-13-20 23 [facility] (13 sources) Penicillins Drug Allergy 03-13-20 23 [facility] Medications Current Medications Medication Drug Class(es) [...] cause fatigue). 12 tablet 0 10/10/2013 Active [id number] 200 actuat albuterol 0.09 mg/actuat metered dose inhaler (14 sources) beta2-Adrenergic Agonist Start: 08-09-2022 take 2 puff(s) by inhalation every four hours as needed Albuterol Sulfate HFA 108 (90 Base) MCG/ACT 2 puffs as needed Inhalation every 4 hrs Aug, Active End: 05-14-2025 take 2 puff(s) by inhalation every four hours for wheezing albuterol HFA (Proventil HFA) 90 mcg/act inhaler Inhale 2 puffs every 4 (four) hours if needed for wheezing. 05/14/2025 Discontinued (Side effects) Albuterol (Eqv-ProAir HFA) 90 mcg/inh inhalation aerosol (4 sources) Start: 02-22-2024 take 2 puff(s) by inhalation every four hours Albuterol (Eqv-ProAir HFA) 90 mcg/inh inhalation aerosol 2 puff(s), Inhalation, q4hr Start Date: 02/22/24 Status: Ordered Albuterol-Budesoni de (Airsupra) 90-80 MCG/ACT aerosol (2 sources) Start: 05-14-2025 take 2 puff(s) by inhalation every four hours Albuterol-Budeson jovanny (Airsupra) 90-80 MCG/ACT aerosol Indications: Acute bronchitis, unspecified organism Inhale 2 puffs every 4 (four) hours if needed (SOB or Wheeze) 32.1 g 3 05/14/2025 Active allopurinol 300 mg oral tablet (19 sources) Xanthine Oxidase Inhibitor Start: 03-07-2025 End: 04-03-2025 take 1 tablet by mouth once daily allopurinol (Zyloprim) 300 MG tablet Indications: Acute cystitis with hematuria Take 1 tablet by mouth once daily 100 tablet 3 04/03/2025 Active Start: 09-10-2024 take 1 tablet by bi th once [...] Acti ve amLODIPine 10 mg oral tablet (17 sources) Dihydropyridine Calcium Channel Alexandro Start: 03-07-2025 take 1 tablet by mouth once daily amLODIPine (Norvasc) 10 MG tablet Indications: Benign essential hypertension Take 1 tablet by mouth once daily 100 tablet 3 03/07/2025 Active Start: 09-10-2024 take 1 tablet by bi th once [...] aspirin 81 mg delayed release oral tablet (18 sources) Platelet Aggregation Inhibitor, Nonsteroidal Anti-inflammatory Drug Start: take 1 tablet by mouth once daily aspirin 81 mg Oral EC Tab 81 mg = 1 tab(s), Oral, Daily Start Date: 02/22/24 Status: Ordered ASPIRIN 81 PO Ta ke by mouth. Active Baby Aspirin Act jett atorvastatin 80 mg oral tablet (18 sources) HMG-CoA Reductase Inhibitor Start: 05-01-2025 take 1 tablet by mouth once daily atorvastatin (Lipitor) 80 MG tablet Indications: Hypertriglyceridemia Take 1 tablet by mouth once daily 100 tablet 3 05/01/2025 Active Start: 02-22-2024 End: 04-19-2025 take 1 tablet by mouth once daily atorvastatin (Lipitor) 80 MG tablet Indications: Hypertriglyceridemia Take 1 tablet (80 mg) by mouth Daily 90 tablet 3 04/24/2024 Active Lipitor Active azithromycin 250 mg oral [...] 5. 1 packet 0 06/23/2021 06/27/2021 Active cefdinir 300 mg oral capsule (2 sources) Cephalosporin Antibacterial Start: 05-14-2025 End: 05-24-2025 take 1 capsule by mouth in the morning cefdinir (Omnicef) 300 MG capsule Indications: Right acute otitis media Take 1 capsule (300 mg) by mouth in the morning and 1 capsule (300 mg) before bedtime. Do all this for 10 days. 20 capsule 05/14/2025 05/24/2025 Active cephalexin 500 mg oral capsule (4 sources) Cephalosporin Antibacterial Start: 07-06-2024 End: 10-23-2024 cephalexin (Keflex) 500 MG capsule 07/06/2024 10/23/2024 Discontinued (Other) empagliflozin 25 mg oral tablet (18 sources) Sodium-Glucose Cotransporter 2 Inhibitor Start: 05-01-2025 take 1 tablet by mouth once daily empagliflozin (Jardiance) 25 MG Indications: Type 2 diabetes mellitus with other diabetic kidney complication (HCC) TAKE 1 TABLET BY MOUTH ONCE DAILY AT THE SAME TIME EACH DAY 100 tablet 3 05/01/2025 Active Start: 02-22-2024 take 1 tablet by bi th once daily empagliflozin (Jardiance) 25 MG Indications: Type 2 diabetes mellitus with other diabetic kidney complication (HCC) Take 1 tablet (25 mg) by mouth [...] Active hydrALAZINE hydrochloride 10 mg oral tablet (18 sources) Arteriolar Vasodilator Start: 01-24-2025 take 1 tablet by mouth twice daily at mealtime hydrALAZINE (Apresoline) 10 MG tablet Indications: Benign essential hypertension Take 1 tablet by mouth twice daily with food 180 tablet 3 01/24/2025 Active Start: 04-24-2024 take 1 tablet by bi th once daily hydrALAZINE (Apresoline) 10 MG tablet [...] mg / lisinopril 20 mg oral tablet (18 sources) Thiazide Diuretic, Angiotensin Converting Enzyme Inhibitor Start: 2023 take 2 tablets by mouth once daily lisinopril-hydroCHLOROthi azide 20-12.5 MG tablet Indications: Hypertriglyceridemia Take 2 tablets by mouth once daily [...] ml insulin glargine 300 unt/ml pen injector (19 sources) Insulin Analog Start: 04-23-2025 inject 21 [IU] by subcutaneous injection in the morning insulin glargine (Toujeo SoloStar) 300 UNIT/ML injection Indications: Type 2 diabetes mellitus with other diabetic kidney complication (HCC) Inject 21 Units under the skin in the morning. 04/23/2025 Active Start: 10-23-2024 End: 04-23-2025 insulin glargine (Toujeo Madyson oStar) 300 UNIT/ML injection Indications: Type 2 diabetes mellitus with other diabetic kidney complication (HCC) Inject 42 Units under the skin in the morning. 10/23/2024 04/23/2025 Discontinued (Reorder) Start: 09-19-2024 End: 10-23-2024 insulin glargine (Toujeo [...] Active metoprolol tartrate 100 mg oral tablet (14 sources) beta-Adrenergic Alexandro Start: 05-01-2025 take 1 tablet by mouth in the morning, then take 1 tablet by mouth at bedtime metoprolol tartrate (Lopressor) 100 MG tablet Indications: Benign essential hypertension TAKE 1 TABLET BY MOUTH IN THE MORNING AND 1 AT BEDTIME 200 tablet 3 05/01/2025 Active Start: 04-24-2024 take 1 tablet by bi th in the morning metoprolol tartrate (Lopressor) 100 MG tablet Indications: Benign essential hypertension Take 1 tablet (100 mg) by mouth [...] 06/23/2021 Active semaglutide 14 mg oral tablet (18 sources) Start: 10-22-2024 End: 11-19-2024 take 1 tablet by mouth once daily semaglutide (Rybelsus) 14 MG tablet Indications: Type 2 diabetes mellitus with other diabetic kidney complication (HCC) Take 1 tablet (14 mg) by mouth Daily 90 tablet 3 11/19/2024 Active Start: 12-27-2023 take 1 tablet by bi th once daily semaglutide (Rybelsus) 14 MG tablet Indications: 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) Take 1 tablet (14 mg) by mouth Daily 30 tablet 3 12/27/2023 Active sertraline 50 mg oral tablet (19 sources) Serotonin Reuptake Inhibitor Start: 02-22-2024 take 1 tablet by mouth once daily sertraline (Zoloft) 50 MG tablet Indications: Anxiety state Take 1 tablet (50 mg) by mouth [...] Classification Problem Date Documented Da te Episodic/Chronic Acute bronchitis (2 sources) Acute bronchitis; Translations: [Acute bronchitis, unspecified] 05-14-2025 Episodic Anxiety disorders (13 sources) Anxiety state; Translations: [Generalized anxiety disorder] Onset: 03-13-2023 03-13-2023 Chronic Asthma (4 sources) Asthma 02-17-2024 Chronic Biliary tract disease (4 sources) Biliary calculus 02-22-2024 Episodic Chronic obstructive pulmonary disease and bronchiectasis (3 sources) Bronchitis, not specified as acute or chronic; Translations: [Bronchitis] Episodic Coronary atherosclerosis and other heart disease (14 sources) Stable angina; Translations: [Stable angina pectoris (CMS/HCC)] Onset: 10-23-2024 5 Chronic Deficiency and other anemia (4 sources) Anemia 02-22-2024 Episodic Diabetes mellitus with complications (20 sources) Renal disorder due to type 2 diabetes mellitus; Translations: [Type 2 diabetes mellitus with other diabetic kidney complication] Onset: 07-13-2019 03-13-2023 Chronic Diabetes mellitus without complication (17 sources) Diabetes mellitus; Translations: [Type 2 diabetes mellitus without complication] Onset: 03-13-2023 02-17-2024 Chronic Disorders of lipid metabolism (20 sources) Hypertriglyceridemi a; Translations: [Hyperchylomicronem ia] Onset: 03-13-2023 03-13-2023 Chronic Diverticulosis and diverticulitis (20 sources) Diverticulitis; Translations: [Diverticular disease] Onset: 11-12-2015 02-17-2024 Chronic Essential hypertension (20 sources) Hypertensive disorder; Translations: [Benign essential hypertension] Onset: 03-13-2023 02-17-2024 Chronic Fracture of upper limb (4 sources) Fracture of radius 02-22-2024 Episodic Genitourinary symptoms and ill-defined conditions (4 sources) History of urinary tract infection 02-22-2024 Episodic Gout and other crystal arthropathies (20 sources) Primary gout; Translations: [Idiopathic gout, right ankle and foot] Onset: 03-13-2023 03-13-2023 Chronic Headache; including migraine (4 sources) Headache 02-22-2024 Episodic Malaise and fatigue (13 sources) Fatigue; Translations: [Chronic fatigue, unspecified] Onset: 03-13-2023 03-13-2023 Chronic Mood disorders (4 sources) Depressive disorder 02-17-2024 Chronic Other diseases of bladder and urethra (5 sources) Urethral stricture; Translations: [Unspecified urethral stricture, female] Onset: 02-22-2024 Episodic Other gastrointestinal disorders (4 sources) Irritable bowel syndrome 02-17-2024 Chronic Other nervous system disorders (13 sources) Abdominal neuropathy; Translations: [Other disorders of peripheral nervous system] Onset: 03-13-2023 03-13-2023 Chronic Other non-traumatic joint disorders (13 sources) Arthropathy; Translations: [Arthropathy, unspecified] Onset: 12-07-2011 03-13-2023 Chronic Other nutritional; endocrine; and metabolic disorders (13 sources) Cholesterol level - finding; Translations: [Lipoprotein deficiency] Onset: 03-13-2023 03-13-2023 Chronic Other nutritional; endocrine; and metabolic disorders (13 sources) Lipoprotein deficiency disorder; Translations: [Lipoprotein deficiency] Onset: 02-22-2018 09-19-2023 Chronic Other nutritional; endocrine; and metabolic disorders (15 sources) Obesity caused by energy imbalance; Translations: [Morbid (severe) obesity due to excess calories] Onset: 04-24-2024 04-24-2024 Chronic Other nutritional; endocrine; and metabolic disorders (15 sources) Body mass index 30+ - obesity; Translations: [Body mass index (BMI) 37.0-37.9, adult] Onset: 04-24-2024 04-24-2024 Chronic Other screening for suspected conditions (not mental disorders or infectious disease) (2 sources) Patient encounter status; Translations: [Encounter for screening mammogram for malignant neoplasm of breast] 04-23-2025 Episodic Other upper respiratory disease (13 sources) Allergic rhinitis due to pollen; Translations: [Allergic rhinitis due to pollen] Onset: 03-13-2023 03-13-2023 Chronic Other upper respiratory infections (3 sources) Acute pharyngitis, unspecified; Translations: [Acute pansinusitis] Episodic Otitis media and related conditions (2 sources) Acute right otitis media; Translations: [Otitis media, unspecified, right ear] 05-14-2025 Episodic Residual codes; unclassified (4 sources) Obstructive sleep apnea (adult) (pediatric); Translations: [OBSTRUCTIVE SLEEP APNEA] Onset: 01-04-2022 Chronic Thyroid disorders (4 sources) Goiter 02-22-2024 Chronic Urinary tract infections (13 sources) Urinary tract infectious disease; Translations: [Urinary tract infection, site not specified] Onset: 02-22-2024 Episodic Viral infection (1 source) Disease caused by 2019-nCoV; Translations: [COVID-19] Episodic Past or Other Problems Problem Classification Problem Date Documented Da te Episodic/Chronic Conditions associated with dizziness or vertigo (13 sources) Dizziness; Translations: [Dizziness and giddiness] Onset: 04-24-2024 04-24-2024 Episodic Diabetes mellitus without complication (13 sources) Abnormal glucose level; Translations: [Other abnormal glucose] Onset: 05-09-2008 03-13-2023 Episodic Immunizations and screening for infectious disease (13 sources) Suspected clinical finding; Translations: [Encounter for observation for suspected exposure to other biological agents ruled out] Onset: 09-30-2020 09-19-2023 Episodic Other diseases of kidney and ureters (13 sources) Disorder of kidney and/or ureter; Translations: [Disorder of kidney and ureter, unspecified] Onset: 05-09-2008 03-13-2023 Episodic Residual codes; unclassified (13 sources) Acquired absence of cervix and uterus; Translations: [Acquired absence of both cervix and uterus] Onset: 03-13-2023 03-13-2023 Episodic Residual codes; unclassified (13 sources) History of hysterectomy for benign disease; Translations: [Acquired absence of both cervix and uterus] Onset: 03-13-2023 03-13-2023 Episodic Unclassified (1 source) Contact with and (suspected) exposure to covid-19 Z20.822 Varicose veins of lower extremity (13 sources) Venous varices; Translations: [Asymptomatic varicose veins of unspecified lower extremity] Onset: 05-09-2008 03-13-2023 Episodic Viral infection (1 source) COVID-19 Results Test Name Value Interpretation Reference Range Facility ALBUMIN, RANDOM URINE W/CREA TINYAQUELINon 05-15-2025 ALBUMIN, URINE 1.5 mg/dL Normal See Note: [facility] Comment on above: Order Comment: PATIE NT NOT FASTING; ADVISED TO RETURN FOR COLLECTION. Result Comment: Refe rence Range: Reference Range Not established Performed By: #### [id number] #### [facility] [address], [address] [place] [id number] Geochemical Laboratory Technician: Jimy Au MD ALBUMIN/CREATININE RATIO, RANDOM URINE 42 mg/g creat High <30 [facility] Comment on above: Order Comment: PATIE NT NOT FASTING; ADVISED TO RETURN FOR COLLECTION. Result Comment: The ADA defines abnormalities in albumin excretion as follows: Albuminuria Category Result (mg/g creatinine) Normal to Mildly increased <30 Moderately increased 30-299 Severely increased > OR = 300 The ADA recommends that at least two of three specimens collected within a 3-6 month period be abnormal before considering a patient to be within a diagnostic category. Performed By: #### 6 [id number] #### [facility] [address], [address] [place] [address] Geochemical Laboratory Technician: Jimy Au MD Creatinine (U) [Mass/Vol] 36 mg/dL Normal 20-275 [facility] Comment on above: Order Comment: PATIE NT NOT FASTING; ADVISED TO RETURN FOR COLLECTION. Performed By: #### 6 [id number] #### [facility] [address] [place] [address], [address] [place] [address] Geochemical Laboratory Technician: Jimy Au MD Laboratory - Hematology and Cell countson 04-23-2025 HbA1c (Bld) [Mass fraction] 6.5 % [facility] No Panel Informationon 04-23 Interpretation and review of laboratory results Abnormal [facility] NM ANGUS PERF SPECT REST STRon 11-16-2024 [place] [address] Nuclear Medicine Report Signed Patient: AIRAM SILVERIO MR#: [id number] : 1960 Acct:[id number] Age/Sex: 64 / F ADM Date: 11/14/24 Loc: [place] Attending Dr: NILES ORTIZ Ordering Physician: NILES ORTIZ Date of Service: 11/14/24 Procedure(s): NM angus perf SPECT rest str Accession Number(s): [id number] cc: NILES ORTIZ Patient Name: AIRAM SILVERIO MR#: [id number] : 1960 Exam Date: 11/14/2024 Ordering Doctor: DR NILES ORTIZ M.D. RADIOLOGY REPORT PROCEDURE: NM ANGUS PERF SPECT REST STR COMPARISON: None. INDICATIONS: CHEST PAIN, SHORTNESS OF BREATH TECHNIQUE: Exam Description: Stress/Rest one day protocol gated SPECT Rest Imagin.1 mCi Tc-99m Cardiolite IV on 11/14/2024 Stress Imaging 31.0 mCi Tc-99m Cardiolite IV on 11/14/2024 Exercise Protocol: 0.4 mg Lexiscan given IV Heart Rate (bpm): Rest: 88 Max: 100 PMHR: 64 Blood Pressure: Rest: 106/65 Max: 124/70 Symptoms: Rest and peak stress ECG findings were normal and the exercise portion of the study was normal per attending physician Dr. Leone . For more details please see separate cardiac stress test report. FINDINGS: QUALITY OF STUDY: Excellent. PERFUSION DEFECT: None. LOCATION: N/A SIZE: N/A. SEVERITY: N/A. TYPE: N/A. WALL MOTION: Normal. LV SIZE: Normal. 48 mL. TID / TCD: None; 2.1 LVEF: Normal. Calculated EF 79%. SUMMARY: Myocardial perfusion imaging study is NORMAL. CONCLUSION: 1. Normal nuclear medicine myocardial perfusion scan. Dictated by: Jorge Barclay M.D. on 11/16/2024 at 10:37 Approved by: Jorge Barclay M.D. on 11/16/2024 at 10:43 Dictated By: Jorge Barclay M.D. Signed By: 11/16/24 1044 DD/ 1043 TD/TT: City Designer: [facility] Radiology, Radiologist, MD - 11/16/2024 [place] [address] Nuclear Medicine Report Signed Patient: AIRAM SILVERIO MR#: [id number] : 1960 Acct:[id number] Age/Sex: 64 / F ADM Date: 11/14/24 Loc: [place] Attending Dr: NILES ORTIZ Ordering Physician: NILES ORTIZ Date of Service: 11/14/24 Procedure(s): NM angus perf SPECT rest str Accession Number(s): [id number] cc: NILES ORTIZ Patient Name: AIRAM SILVERIO MR#: [id number] : 1960 Exam Date: 11/14/2024 Ordering Doctor: DR NILES ORTIZ M.D. RADIOLOGY REPORT PROCEDURE: NM ANGUS PERF SPECT REST STR COMPARISON: None. INDICATIONS: CHEST PAIN, SHORTNESS OF BREATH TECHNIQUE: Exam Description: Stress/Rest one day protocol gated SPECT Rest Imagin.1 mCi Tc-99m Cardiolite IV on 11/14/2024 Stress Imaging 31.0 mCi Tc-99m Cardiolite IV on 11/14/2024 Exercise Protocol: 0.4 mg Lexiscan given IV Heart Rate (bpm): Rest: 88 Max: 100 PMHR: 64 Blood Pressure: Rest: 106/65 Max: 124/70 Symptoms: Rest and peak stress ECG findings were normal and the exercise portion of the study was normal per attending physician Dr. Leone . For more details please see separate cardiac stress test report. FINDINGS: QUALITY OF STUDY: Excellent. PERFUSION DEFECT: None. LOCATION: N/A SIZE: N/A. SEVERITY: N/A. TYPE: N/A. WALL MOTION: Normal. LV SIZE: Normal. 48 mL. TID / TCD: None; 2.1 LVEF: Normal. Calculated EF 79%. SUMMARY: Myocardial perfusion imaging study is NORMAL. CONCLUSION: 1. Normal nuclear medicine myocardial perfusion scan. Dictated by: Jorge Barclay M.D. on 11/16/2024 at 10:37 Approved by: Jorge Barclay M.D. on 11/16/2024 at 10:43 Dictated By: Jorge Barclay M.D. Signed By: 11/16/24 1044 DD/ 1043 TD/TT: City Designer: [facility] Radiology Study observation (narrative) [facility] NM ANGUS PERF SPECT REST STROr dered By: Radiologist Radiology on 11-16-2024 [facility] Work Phone: Laboratory - Hematology and Cell countson 10-23-2024 HbA1c (Bld) [Mass fraction] 6 % [facility] No Panel Informationon 10-23 Interpretation and review of laboratory results Abnormal [facility] - Microbiology an d Antimicrobial susceptibilityon 07-17-2024 Bacteria identified Cx Nom (U) [facility] URINE CULTURE, ROUTINEon Bacteria identified Cx Nom (U) Urine Culture, Routine Klebsiella pneumoniae [facility] Bacteria identified Cx Nom (U) *ABNORMAL* [facility] Bacteria identified Cx Nom (U) [facility] <=4 ug/mL [facility] Cx Nom (U) Cefazolin with an OBDULIA <=16 predicts susceptibility to the [facility] Bacteria identified Cx Nom (U) oral agents [facility] Bacteria identified Cx Nom (U) cefaclor, cefdinir, [...] Cx Nom (U) Cefepime S F Susceptible [facility] Bacteria identified Cx Nom (U) Ceftriaxone S F Susceptible [facility] Bacteria identified Cx Nom (U) Cefuroxime S F Susceptible [facility] Bacteria identified Cx Nom (U) Ciprofloxacin S F Susceptible [facility] Bacteria identified Cx Nom (U) [...] Cx Nom (U) Tobramycin S F Susceptible [facility] Bacteria identified [facility] (U) Trimethoprim/Sulfamet hoxazole S F Susceptible [facility] Bacteria identified Cx Nom (U) Piperacillin/Tazobact am S F Susceptible [facility] Interpretation and review of laboratory results Abnormal [facility] C Urineon [...] Locations R1: This test was performed at: [facility], [address] [place] [address], [id number] , [place], Normal [facility] Comment on above: Performed By: #### [id number] #### [facility] [address] [place] [id number] Ambulatory Visit Summaryon 0 03-06-2024 Ambulatory Visit [...] DEA SIMS PA-C Where: [facility] Normal [facility] RAD - MISCon 02-24-2024 RAD - MIS [id number] .00TIFF [facility] Consultation Noteon 02-23-20 Consultation Note [id number]. 00TIFF Normal [facility] Screenson 02-23-2024 Screens [id number] .00TIFF [facility] Ambulatory Visit Summaryon 0 02-22-2024 Ambulatory Visit [...] DEA SIMS PA-C Where: [facility] Patient Educationon 02-22-20 24 Patient Education [...] these instructions at home: Medicines ? Take [id number] and prescription medicines only as told by [...] provider. Document Revised: 05/01/2021 Document Reviewed: 05/01/2021 EGT Patient Education ? 2022 [employer]. [facility] Urology Office/Clinic Noteon 02-22-2024 Urology [...] Contact Information LEVI NICOLE, DEA Faith, URL [address] [address] Additional Instructions: 6 wks Patient Education Dysuria [...] 50 mg= (more content not included)... [facility] Comment on above: Result Comment: Elec tronically Signed By: DEA SIMS PA-C\.br\Date and Time Signed: 02/22/24 10:55 EDT\.br\Electronically Co-Signed By: Criselda Fisher\.br\Date and Time Co-Signed: 02/22/24 10:49 EDT COVID/FLU RT-PCRon 2 SARS-CoV-2 (COVID-19) RNA ELBA+probe Ql (Unsp spec) Positive [facility] Other COVID/FLU RT-PCR Negative [facility] Other Quick Strepon 08-09-2022 S. pyogenes Org specific cx Ql (Throat) Negative [facility] Other Quick Strep [facility] Other XR CHEST (2 VW)on 06-23-2021 XR [...] Juancarlos York DO 06/23/21 Final result Normal [facility] XR CHEST (2 VW)Ordered By: Guerita Pool on 06-23-2021 No acute findings. [facility] [employer] Phone: EXAMINATION: TWO XRA Y VIEWS OF THE CHEST 06/23/2021 2:12 pm COMPARISON: None. HISTORY: ORDERING SYSTEM PROVIDED HISTORY: SOB TECHNOLOGIST PROVIDED HISTORY: SOB FINDINGS: Lungs are clear. Cardiac and mediastinal silhouettes unremarkable. Sternotomy wire sutures present. Osseous structures grossly intact. [employer] Work Phone: Babak, [employer] Incoming Radiant Results From [employer] - 06/23/2021 2:19 PM EDT EXAMINATION: TWO XRAY VIEWS OF THE CHEST 06/23/2021 2:12 pm COMPARISON: None. HISTORY: ORDERING SYSTEM PROVIDED HISTORY: SOB TECHNOLOGIST PROVIDED HISTORY: SOB FINDINGS: Lungs are clear. Cardiac and mediastinal silhouettes unremarkable. Sternotomy wire sutures present. Osseous structures grossly intact. IMPRESSION: No acute findings. [employer] Work Phone: [employer] Work Phone: Vital Signs Date Time Vital Sign Value Performing Clinician Facility 05-14-2025 16:35-0400 Body height 152.4 cm Rosina Whyteboardmer PA Work Phone: [facility] 05-14-2025 16:35-0400 Body mass index (BMI) [Ratio] 36.05 kg/m2 Rosina Hemmer PA Work Phone: [facility] 05-14-2025 16:35-0400 Body temperature 99.5 [degF] Rosina Hemmer PA Work Phone: [facility] 05-14-2025 16:35-0400 Body weight 83.73 kg Rosina Hemmer PA Work Phone: [facility] 05-14-2025 16:35-0400 Diastolic blood pressure 66 mm[Hg] Rosina Hemmer PA Work Phone: [facility] 05-14-2025 16:35-0400 Heart rate 85 /min Rosina Hemmer PA Work Phone: [facility] 05-14-2025 16:35-0400 Respiratory rate 18 /min Rosina Hemmer PA Work Phone: [facility] 05-14-2025 16:35-0400 SaO2% (BldA) [Mass fraction] 96 % Rosina Hemmer PA Work Phone: [facility] 05-14-2025 16:35-0400 Systolic blood pressure 130 mm[Hg] Rosina GAR Work Phone: [facility] 04-23-2025 13:12-0400 Body height 152.4 cm Niles Ortiz MD Work Phone: [facility] 04-23-2025 13:12-0400 Body mass index (BMI) [Ratio] 35.15 kg/m2 Niles Ortiz MD Work Phone: [facility] 04-23-2025 13:12-0400 Body weight 81.65 kg Niles Ortiz MD Work Phone: [facility] 04-23-2025 13:12-0400 Diastolic blood pressure 80 mm[Hg] Niles Ortiz MD Work Phone: [facility] 04-23-2025 13:12-0400 Heart rate 73 /min Niles Ortiz MD Work Phone: [facility] 04-23-2025 13:12-0400 SaO2% (BldA) [Mass fraction] 96 % Niles Ortiz MD Work Phone: [facility] 04-23-2025 13:12-0400 Systolic blood pressure 118 mm[Hg] Niles Ortiz MD Work Phone: [facility] 10-23-2024 13:03-0500 Body height 152.4 cm Niles Ortiz MD Work Phone: [facility] 10-23-2024 13:03-0500 Body mass index (BMI) [Ratio] 35.54 kg/m2 Niles Ortiz MD Work Phone: [facility] 10-23-2024 13:03-0500 Body weight 82.56 kg Niles Ortiz MD Work Phone: [facility] 10-23-2024 13:03-0500 Diastolic blood pressure 82 mm[Hg] Niles Ortiz MD Work Phone: [facility] 10-23-2024 13:03-0500 Heart rate 75 /min Niles Ortiz MD Work Phone: [facility] 10-23-2024 13:03-0500 SaO2% (BldA) [Mass fraction] 96 % Niles Ortiz MD Work Phone: [facility] 10-23-2024 13:03-0500 Systolic blood pressure 132 mm[Hg] Niles Ortiz MD Work Phone: [facility] 07-11-2024 10:07-0400 Body height 152.4 cm Robert Dooley [employer] Work Phone: [facility] 07-11-2024 10:07-0400 Body mass index (BMI) [Ratio] 35.54 kg/m2 Robert Dooley [employer] Work Phone: [facility] 07-11-2024 10:07-0400 Body weight 82.56 kg Robert Dooley [employer] Work Phone: [facility] 07-11-2024 10:07-0400 Diastolic blood pressure 78 mm[Hg] Robert Dooley [employer] Work Phone: [facility] 07-11-2024 10:07-0400 Heart rate 70 /min Robert Dooley [employer] Work Phone: [facility] 07-11-2024 10:07-0400 SaO2% (BldA) [Mass fraction] 94 % Robert Dooley [employer] Work Phone: [facility] 07-11-2024 10:07-0400 Systolic blood pressure 110 mm[Hg] Robert Dooley [employer] Work Phone: [facility] 02-22-2024 10:23-0400 Blood Pressure Location DEA ROWLANDRY [facility] 02-22-2024 10:23-0400 Body temperature 97.88 [degF] DEA LEVI [facility] 02-22-2024 10:23-0400 Diastolic blood pressure 68 mm[Hg] DEA SIMS [facility] 02-22-2024 10:23-0400 Heart rate 90 /min DEA SIMS [facility] 02-22-2024 10:23-0400 Systolic blood pressure 110 mm[Hg] DEA SIMS [facility] 08-09-2022 11:55-0500 Body height 149.86 cm Brooklyn Gomezault Other [employer] Other 08-09-2022 11:55-0500 Body mass index (BMI) [Ratio] 42.41 kg/m2 Brooklyn Gomezault Other [employer] Other 08-09-2022 11:55-0500 Body temperature 98.4 [degF] Brooklyn Gomezault Other [employer] Other 08-09-2022 11:55-0500 Body weight 95.26 kg Brooklyn Gomezault Other [employer] Other 08-09-2022 11:55-0500 Respiratory rate 18 /min Brooklyn Fredrick Other [employer] Other 08-09-2022 11:55-0500 SaO2% (BldA) [Mass fraction] 96 % Brooklyn Gomezault Other [employer] Other 06-23-2021 16:25-0400 Heart rate 99 /min Rugen Angel Work Phone: [employer] Work Phone: 06-23-2021 16:25-0400 SaO2% (BldA) [Mass fraction] 95 % Rugen Angel Work Phone: [employer] Work Phone: 06-23-2021 14:04-0400 Diastolic blood pressure 84 mm[Hg] Niles Angel Work Phone: [employer] Work Phone: 06-23-2021 14:04-0400 Systolic blood pressure 132 mm[Hg] Niles Angel Work Phone: [employer] Work Phone: 06-23-2021 14:02-0400 Body temperature 99.3 [degF] Zweemielexi Angel Work Phone: [employer] Work Phone: 06-23-2021 14:02-0400 Respiratory rate 17 /min Niles Bahoui Work Phone: [employer] Work Phone: Encounters Encounter Date Encounter Type Care Provider Facility Start: 05-14-2025 End: 05-14-2025 Office outpatient visit 15 minutes Rosina GAR Work Phone: [facility] [place] [facility] Comment on above: Acute non-recurrent pansinusitis (Primary Dx); Acute bronchitis, unspecified organism; Right acute otitis media Start: 05-14-2025 End: 05-14-2025 ambulatory ROSINA FREY Not Available Start: 05-14-2025 End: 05-14-2025 Bamboo flowsheet Rosina Frey PA Work Phone: [facility] [place] [facility] Start: 05-14-2025 End: 05-14-2025 Bamboo flowsheet Rosina Frey PA Work Phone: [facility] [place] [facility] Start: 04-23-2025 End: 04-23-2025 Office outpatient visit 25 minutes Niles Ortiz MD Work Phone: [facility] Comment on above: Encounter for screen ing mammogram for malignant neoplasm of breast; Benign essential hypertension ; Type 2 diabetes mellitus with other diabetic kidney complication (HCC); Annual physical exam; Hypertriglyceridemia Start: 04-23-2025 End: 04-23-2025 Patient encounter procedure Niles Ortiz MD Work Phone: [facility] Start: 04-23-2025 End: 04-23-2025 ambulatory RUGEN M ANGEL Not Available Start: 04-03-2025 End: 04-03-2025 Refill Niles Ortiz MD Work Phone: [facility] Comment on above: Acute cystitis with hematuria Start: 11-19-2024 End: 11-19-2024 Refill Niles Ortiz MD Work Phone: [facility] Comment on above: Type 2 diabetes chema itus with other diabetic kidney complication (CMS/HCC) Start: 11-16-2024 End: 11-16-2024 Clinisync Result Encounter Niles Ortiz MD Work Phone: [facility] Unsolicited Start: 11-16-2024 End: 11-16-2024 Clinisync Result Encounter Niles Ortiz MD Work Phone: [facility] Unsolicited Start: 10-23-2024 End: 10-23-2024 Office outpatient visit 25 minutes Niles Ortiz MD Work Phone: [facility] Comment on above: Stable angina pector is (CMS/HCC) (Primary Dx); 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); Morbid (severe) obesity due to excess calories (CMS/HCC); Essential (primary) hypertension (CMS/HCC); Body mass index (BMI) 35.0-35.9, adult Start: 10-23-2024 End: 10-23-2024 ambulatory RUGEN M ANGEL Not Available Start: 07-11-2024 End: 07-11-2024 Office outpatient visit 25 minutes Robert Dooley [employer] Work Phone: [facility] Comment on [...] Unsolicited Start: 05-08-2024 End: 05-08-2024 ambulatory DEA Vianney SIMS Facility:[facility] Start: 05-08-2024 End: 05-08-2024 Patient encounter procedure DEABLANCA SIMS [facility] Start: 03-06-2024 End: 03-06-2024 Lab Drop off DEAREYES SIMS [facility] Start: 03-06-2024 End: 03-06-2024 ambulatory DEA ROWLANDRY Facility:[facility] Start: 03-06-2024 End: 03-06-2024 Patient encounter procedure DEA Vianney SIMS [facility] Start: 02-22-2024 End: 02-22-2024 ambulatory DEAREYES SIMS Facility:[facility] Start: 02-22-2024 End: 02-22-2024 Patient encounter procedure DEA Vianney SIMS [facility] Start: 08-09-2022 End: 08-09-2022 ambulatory Brooklyn Alcala Other [employer] Other Start: 08-09-2022 Office outpatient ne w 20 minutes Brooklyn Alcala [facility] [place] Start: 02-01-[address] NILES ORTIZ Facility: [facility] Start: 01-04-2022 End: 01-05-[address] NILES ORTIZ Facility:[facility] Start: 06-23-2021 Emergency department patient visit RUGLEXI Jitendra LIUA [facility] Start: 06-23-2021 End: 06-23-2021 Emergency department patient visit Niles Ortiz Work Phone: [facility] ED Comment on above: COVID-19 (Primary Dx ) Procedures Date Procedure Procedure Detail Performing Clinician Start: 04-23-2025 Hemoglobin glycosylated a1c Niles Ortiz MD Work Phone: Start: 11-16-2024 NM ANGUS PERF SPECT REST STR Niles Ortiz MD Work Phone: Start: 10-23-2024 Hemoglobin glycosylated a1c Niles Ortiz MD Work Phone: Start: 07-06-2024 Bacteria identified in Urine by Culture Generic External Data Provider Start: 06-23-2021 Radiologic exam chest 2 views Nano Pool DO Work Phone: Start: 01-23-2021 Mammography Robert danielle NP Work Phone: Start: 05-24-2016 Colonoscopy Robert danielle NP Work Phone: Start: 10-03-2015 Colonoscopy DEA LEONARD Start: 08-09-2014 Cystourethroscopy wi dilation of urethral stricture DEA SISM Start: 10-03-2013 Colonoscopy DEA LEONARD Start: 10-03-2012 Cholecystectomy LINDA SIMS Start: 10-03-2010 Thyroidectomy DEA SIMS Start: 10-03-2006 Hysterectomy DEA LEONARD Start: 10-03-1962 Tonsillectomy DEA SIMS Plan of Treatment Date Care Activity Detail Author Start: 09-07-2028 DTaP/Tdap/Td vaccine (2 - Td or Tdap) DTaP/Tdap/Td vaccine (2 - Td or Tdap) [facility] Work Phone: Start: 09-03-2026 Glaucoma screening Diabetes: Retinopathy Screening [facility] Start: 05-24-2026 Screening for malignant neoplasm of colon [facility] Start: 09-02-2025 Glaucoma screening Diabetes: Retinopathy Screening [facility] Start: 08-27-2025 End: 08-27-2025 Patient encounter procedure 08/27/2025 1:00 PM EST Office Visit [facility] [place] [facility] [address] [place] [address] Niles Ortiz MD [address] [place] [address] [facility] [place] [facility] Start: 07-24-2025 Hemoglobin A1c measurement Diabetes: Hemoglobin A1C [facility] Start: 06-03-2025 Influenza vaccination Influenza Vaccine (#1) [facility] Start: 05-14-2025 End: 05-14-2025 Patient encounter procedure 05/14/2025 4:30 PM EDT [facility] [address] [place] [address] Rosina Frey PA [address] [place] [address] Arrived [facility] [place] [facility] Comment on above: Arrived Start: 04-24-2025 Urine screening for protein Diabetes: Urine Protein Screening [facility] Start: 04-23-2025 End: 04-23-2026 CBC W Auto Differential panel - Blood CBC and differential Lab Routine Benign essential hypertension Type 2 diabetes mellitus with other diabetic kidney complication (HCC) Annual physical exam Hypertriglyceridemia Expected: 04/23/2025 (Approximate), Expires: 04/23/2026 [facility] Comment on above: Expected: 04/23/2025 (Approximate), Expi res: 04/23/2026 Start: 04-23-2025 End: 04-23-2026 Comprehensive metabolic 2000 panel - Serum or Plasma Comprehensive metabolic panel Lab Routine Benign essential hypertension Type 2 diabetes mellitus with other diabetic kidney complication (HCC) Annual physical exam Hypertriglyceridemia Expected: 04/23/2025 (Approximate), Expires: 04/23/2026 [facility] Comment on above: Expected: 04/23/2025 (Approximate), Expi res: 04/23/2026 Start: 04-23-2025 End: 04-23-2026 Lipid 1996 panel - Serum or Plasma Lipid panel Lab Routine Annual physical exam Hypertriglyceridemia Expected: 04/23/2025 (Approximate), Expires: 04/23/2026 [facility] Comment on above: Expected: 04/23/2025 (Approximate), Expi res: 04/23/2026 Start: 04-23-2025 End: 06-24-2026 MG Breast - bilateral Screening Bilateral screening mammogram Imaging Routine Encounter for screening mammogram for malignant neoplasm of breast Expected: 04/23/2025, Expires: 06/24/2026 [facility] Work Phone: Comment on above: Expected: 04/23/2025, Expires: Start: 04-23-2025 End: 04-23-2026 Microalbumin/Creatinin e panel in random Urine Microalbumin / creatinine urine ratio Lab Routine Type 2 diabetes mellitus with other diabetic kidney complication (HCC) Annual physical exam Expected: 04/23/2025 (Approximate), Expires: 04/23/2026 [facility] Comment on above: Expected: 04/23/2025 (Approximate), Expi res: 04/23/2026 Start: 04-23-2025 End: 04-23-2025 Patient encounter procedure 04/23/2025 1:00 PM EDT Office Visit [facility] [address] [facility] [address] [place] [id number] Niles Ortiz MD [address] [facility] [address] [place] [address] [facility] Start: 01-21-2025 Hemoglobin A1c measurement Diabetes: Hemoglobin A1C [facility] Start: 12-18-2024 Influenza vaccination Influenza Vaccine (#1) [facility] Comment on above: Postponed from 06/03/2024 (Patient Refus ed) Start: 10-23-2024 End: 10-23-2026 NM Heart Perfusion W single state of exercise Stress test with myocardial perfusion Cardiac Nuclear Medicine Routine 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) Essential (primary) hypertension (CMS/HCC) Stable angina pectoris (CMS/HCC) Expected: 10/23/2024 (Approximate), Expires: 10/23/20[address] [facility] Work Phone: Comment on above: Expected: 10/23/2024 (Approximate), Expi res: 10/23/2026 Start: 10-23-2024 End: 10-23-2024 Patient encounter procedure 10/23/2024 1:00 PM EST Office Visit [facility] [address] [place] [address] Niles Ortiz MD [address] [place], [place] [id number] [facility] Start: 07-25-2024 Hemoglobin A1c measurement Diabetes: Hemoglobin A1C [facility] Start: 06-03-2024 Influenza vaccination Influenza Vaccine (#1) [facility] Start: 01-23-2022 Screening for malignant neoplasm of breast Mammogram [facility] Start: 06-03-2021 Influenza vaccination Flu vaccine (#1) [employer] Phone: Start: 2016 Lipid panel Lipid screen [facility] Phone: Start: 10-10-2014 Creatinine measurement Creatinine monitoring [employer] Phone: Start: 10-10-2014 Potassium monitoring Potassium monitoring [facility] Phone: Start: 2010 Screening for malignant neoplasm of breast Breast cancer screen [facility] Phone: Start: 2010 Shingles Vaccine (1 of 2) Shingles Vaccine (1 of 2) [facility] Phone: Start: 2005 Screening for malignant neoplasm of colon Colon cancer screen colonoscopy [facility] Phone: Start: 1975 HIV screening HIV screen [facility] Phone: Start: 1960 Hepatitis C screening Hepatitis C screen [facility] Work Phone: Start: 1960 Screening for malignant neoplasm of colon [facility] Immunizations Immunization Date Immunization Notes Care Provider Kaci chahal 07-20-2021 influenza virus vacc ine, unspecified formulation DEA LEVI [facility] 07-20-2021 influenza, injectabl e, quadrivalent, preservative free Robert Flanders [employer] Work Phone: [facility] 01-08-2021 SARS-CoV-2 (COVID-19 ) mRNA BNT-162b2 vax DEA LEVI [facility] 12-18-2020 SARS-CoV-2 (COVID-19 ) mRNA BNT-162p0 vax DEA LEVI [facility] 06-05-2020 influenza virus vacc ine, unspecified formulation DEA LEVI [facility] 06-05-2020 influenza, high dose seasonal, preservative-free Robert Soumya [employer] Work Phone: [facility] 06-05-2020 influenza, injectabl e, quadrivalent, preservative free Robert Soumya [employer] Work Phone: [facility] 09-07-2018 influenza virus vacc ine, unspecified formulation DEA LEVI [facility] 09-07-2018 influenza, injectabl e, quadrivalent, preservative free Robert Soumya [employer] Work Phone: [facility] 09-07-2018 pneumococcal polysaccharide vaccine, 23 valent DEA LEVI [facility] 09-07-2018 seasonal influenza, intradermal, preservative free Robert Flanders [employer] Work Phone: [facility] 09-07-2018 tetanus toxoid, redu jerry diphtheria toxoid, and acellular pertussis vaccine, adsorbed DEA SIMS [facility] Payers Date Payer Category Payer [employer] [place] [employer] [id number] 2022 Unknown BCBS BCBS [id number] 2022-Present [phone] [id number] [place] [id number] 1960 Unknown [id number] [id number] 1960 Unknown [id number] 1960 Unknown [id number]. [id number] 1960 Unknown [id number] .[id number]. [id number] 1960 Unknown [id number] .[id number]. [id number] 1960 Unknown [id number] .[id number]. [id number] 1960 Unknown [id number] [id number] 1960 Unknown [id number]. 2.9 1960 Unknown [id number]. 2.9 1960 Unknown [id number]. [id number] 1959 Unknown [id number] [facility] [id number] Social History Date Type Detail Facility Start: 10-10-2013 End: 03-05-2023 Tobacco smoking status RUST Never smoker [facility] Start: 1960 Sex Assigned At Not on file [facility] Work Phone: Exposure to SARS-CoV -2 (event) Yes [employer] Start: 07-11-2024 End: 05-14-2025 Sex Assigned At [facility] Start: 02-22-2024 Tobacco smoking status Never [facility] Start: 07-11-2024 End: 05-14-2025 Alcoholic beverage intake Lifetime non-drinker (finding) [facility] Start: 07-11-2024 End: 05-14-2025 History of Social function [facility] Are [...] the mortgage or rent on time? No [facility] Start: 03-05-2023 Alcohol Comment Caffeine: coffee [facility] Medical Equipment Procedure Code Equipment Code Equipment Original Text Equi pment Identifier Dates as directed Four times daily for 30 days Functional Status Date Assessment Result Facility 05-14-2025 Patient Health Quest ionnaire 2 item (PHQ-2) [Reported] [facility] 04-23-2025 Patient Health Quest ionnaire 2 item (PHQ-2) [Reported] [facility] 02-22-2024 Functional Status N/A [facility] Clinical Notes 06-23-2021 to 05-14-2025 CONG Ramirez - 05/14/2025 4:30 PM Luis A Ortiz MD - 04/23/2025 1:27 PM Luis A Ortiz MD - 04/23/2025 1:00 PM EDTTelephone Encounter - CONG Ramirez - 04/03/2025 11:40 AM EDT Note Date & Type Note Facility 05-14-2025 History of Present illness Narrative Images from the original note were not included. Subjective Patient ID: Airam Silverio is a 64 y.o. female who presents for cough. Airam is present today for evaluation of URI. Admits sinus pressure, nasal congestion, runny nose, right ear discomfort, cough (dry). She has been sick for 8 days. She has tried mucinex, sudafed, tylenol. She feels she is getting worse. Her mother gave her a Tessalon perles and feels that helped. Over the past 2 weeks, how often have you been bothered by any of the following problems? Little interest or pleasure in doing things: Not at all (currently on medication) Feeling down, depressed, or hopeless: Not at all (currently on medication) Patient Health Questionnaire-2 Score: 0 Current Outpatient Medications on File Prior to Visit Medication Sig Dispense Refill allopurinol (Zyloprim) 300 MG tablet Take 1 tablet by mouth once daily 100 tablet 3 amLODIPine (Norvasc) 10 MG tablet Take 1 tablet by mouth once daily 100 tablet 3 ASPIRIN 81 PO Take by mouth. atorvastatin (Lipitor) 80 MG tablet Take 1 tablet by mouth once daily 100 tablet 3 empagliflozin (Jardiance) 25 MG TAKE 1 TABLET BY MOUTH ONCE DAILY AT THE SAME TIME EACH DAY 100 tablet 3 glucose blood test strip as directed Four times daily for 30 days hydrALAZINE (Apresoline) 10 MG tablet Take 1 tablet by mouth twice daily with food 180 tablet 3 insulin glargine (Toujeo SoloStar) 300 UNIT/ML injection Inject 21 Units under the skin in the morning. lisinopril-hydroCHLOROthiazide 20-12.5 MG tablet Take 2 tablets by mouth once daily 200 tablet 3 metoprolol tartrate (Lopressor) 100 MG tablet TAKE 1 TABLET BY MOUTH IN THE MORNING AND 1 AT BEDTIME 200 tablet 3 semaglutide (Rybelsus) 14 MG tablet Take 1 tablet (14 mg) by mouth Daily 90 tablet 3 sertraline (Zoloft) 50 MG tablet Take 1 tablet (50 mg) by mouth 1 (one) time each day at the same time 100 tablet 4 [DISCONTINUED] albuterol HFA (Proventil HFA) 90 mcg/act inhaler Inhale 2 puffs every 4 (four) hours if needed for wheezing. No current facility-administered medications on file prior [...] Relation Name Age of Onset Hypertension Father Other (cerebrovascular) Father Stroke Father Atrial fibrillation Father Lung cancer Brother Other (pacemaker) Brother Past Medical History: Diagnosis Date Abdominal pain 2009 Abnormal x-ray of knee 11/09/2022 B/L Knee Xrays: No acute osseous findings. Degenerative changes, advanced in right medial compartment Allergic reaction 09/12/2016 Allergic reaction and dyspnea Allergies Anemia Asthma (HCC) Chest pain Cholelithiasis 2012 Contusion of left hand COVID-19 06/23/2021 Depression Diabetes (HCC) Diverticulosis Goiter 2011 Head contusion Headache Hypertension Irritable bowel syndrome 2014 Migraine headache Otitis media, right Radial fracture 1998 Type 2 diabetes mellitus without complication (HCC) UTI (urinary tract infection) Past Surgical History: Procedure Laterality Date CHEST XRAY 2012 CHEST PAIN CHOLECYSTECTOMY 2013 Cholelithiasis COLONOSCOPY 2014 Dr. Montero COLONOSCOPY 05/24/2016 Dr. montero Internal hemorhoid, Spastic Colon CT/HEAD 2013 HEADACHE EKG 2013 CHEST PAIN LAPAROTOMY OOPHERECTOMY Left MASS EXCISION removal chest mass ORIF RADIAL SHAFT FRACTURE SD MED TX MEDS NOS 2009 BACTRIUM DS & TYLENOL #3;Disease:OTITIS MEDIA- RIGHT THYROIDECTOMY 2011 Goiter Partial TONSILLECTOMY 1963 TOTAL ABDOMINAL HYSTERECTOMY W/ BILATERAL SALPINGOOPHORECTOMY 2007 NOT cervical Cancer Visit Vitals BP 130/66 Pulse 85 Temp 99.5 F Resp 18 Ht 5' Wt 184 lb 9.6 oz SpO2 96% BMI 36.05 kg/m Smoking Status Never BSA 1.88 m Review of Systems Constitutional: Negative for chills, fatigue and fever. HENT: Positive for congestion, ear pain, postnasal drip, rhinorrhea, sinus pressure and sinus pain. Negative for sore throat. Respiratory: Positive for cough. Negative for shortness of breath and wheezing. Cardiovascular: Negative for chest pain, palpitations and leg swelling. Gastrointestinal: Negative for abdominal pain, constipation, diarrhea, nausea and vomiting. Objective Physical Exam Constitutional: General: She is not in acute distress. Appearance: She is well-developed. She is obese. She is ill-appearing (Mildly). HENT: Head: Normocephalic and atraumatic. Right Ear: Ear canal normal. Tympanic membrane is erythematous and retracted. Left Ear: Ear canal normal. Tympanic membrane is retracted. Nose: Congestion and rhinorrhea present. Right Turbinates: Swollen. Left Turbinates: Swollen. Right Sinus: Maxillary sinus tenderness and frontal sinus tenderness present. Left Sinus: Maxillary sinus tenderness and frontal sinus tenderness present. Mouth/Throat: Mouth: Mucous membranes are moist. Pharynx: Posterior oropharyngeal erythema and postnasal drip present. Eyes: General: No scleral icterus. Conjunctiva/sclera: Conjunctivae normal. Cardiovascular: Rate and Rhythm: Normal rate and regular rhythm. Heart sounds: Normal heart sounds. No murmur heard. Pulmonary: Effort: Pulmonary effort is normal. No respiratory distress. Breath sounds: Decreased air movement present. Decreased breath sounds present. No wheezing, rhonchi or rales. Comments: Difficulty taking a deep breath without coughing, moist harsh cough Lymphadenopathy: Cervical: Cervical adenopathy present. Right cervical: Superficial cervical adenopathy present. Left cervical: Superficial cervical adenopathy present. Skin: General: Skin is warm and dry. Neurological: General: No focal deficit present. Mental Status: She is alert and oriented to person, place, and time. Psychiatric: Mood and Affect: Mood normal. Behavior: Behavior normal. Assessment/Plan Diagnoses and all orders for this visit: Acute non-recurrent pansinusitis Antibiotic as prescribed. Acute bronchitis, unspecified organism - Albuterol-Budesonide (Airsupra) 90-80 MCG/ACT aerosol; Inhale 2 puffs every 4 (four) hours if needed (SOB or Wheeze) Provided pt with Rx for Airsupra to use as needed. She has used it before with good relief of symptoms. Reminded her to rinse her mouth after each use, do not swallow the water after rinsing. Would plan on ordering a CXR for further evaluation if no improvement over the next week. Right acute otitis media - cefdinir (Omnicef) 300 MG capsule; Take 1 capsule (300 mg) by mouth in the morning and 1 capsule (300 mg) before bedtime. Do all this for 10 days. Pt has taken Cephalosporin class medications in the past and tolerated them well. Start the above as directed. Reviewed potential s/e with patient. Can take probiotic while on antibiotic. Continue to drink plenty of water, get plenty of rest. Follow up for Appointment As Scheduled. documented in this encounter [facility] 04-23-2025 History of Present illness Narrative Associated Problem(s): Type 2 diabetes mellitus with other diabetic kidney complication (HCC) No Tobacco use Follow ADA 1800 diet [...] not included. HPI Diabetes Additional comments: Last . Last edited by Noreen Gonzalez MA on 04/23/2025 8:14 AM. Subjective Patient ID: Airam Silverio is a 64 y.o. female who presents for Diabetes (Last .). Pt is here for her six month follow up , pt sugars been around 120's Her right knee has been hurting for awhile, she will hear it pop and will wrap her knee Has overstock of Lancets and test strips Dad needed a new pacemaker Mom was sick and flew to [place] Diabetes She presents for her follow-up diabetic visit. She has type 2 diabetes mellitus. No MedicAlert identification noted. The initial diagnosis of diabetes was made 5 years ago. Her disease course has been stable. Pertinent negatives for hypoglycemia include no dizziness or headaches. There are no diabetic associated symptoms. Pertinent [...] being taken. She does not see a acoustic warfare analyst.Eye exam is current. Over the past 2 weeks, how often have you been bothered by any of the following problems? Little interest or pleasure in doing things: Not at all Feeling down, depressed, or hopeless: Not at all Patient Health Questionnaire-2 Score: 0 Current Outpatient Medications on File Prior to Visit Medication Sig Dispense Refill albuterol HFA (Proventil HFA) 90 mcg/act inhaler Inhale 2 puffs every 4 (four) hours if needed for wheezing. allopurinol (Zyloprim) 300 MG tablet Take 1 tablet by mouth once daily 100 tablet 3 amLODIPine (Norvasc) 10 MG tablet Take 1 tablet by mouth once daily 100 tablet 3 ASPIRIN 81 PO Take by [...] (Apresoline) 10 MG tablet Take 1 tablet by mouth twice daily with food 180 tablet 3 lisinopril-hydroCHLOROthiazide 20-12.5 MG tablet Take 2 tablets by mouth once daily 200 tablet 3 metoprolol tartrate (Lopressor) 100 MG tablet Take 1 tablet (100 mg) by mouth in the morning and 1 tablet (100 mg) before bedtime. 180 tablet 3 semaglutide (Rybelsus) 14 MG tablet Take 1 tablet (14 mg) by mouth Daily 90 tablet 3 sertraline (Zoloft) 50 MG tablet Take 1 tablet (50 mg) by mouth 1 (one) time each day at the same time 100 tablet 4 [DISCONTINUED] insulin glargine (Toujeo SoloStar) 300 UNIT/ML injection Inject 42 Units under the skin in the morning. No current facility-administered medications on file prior [...] Relation Name Age of Onset Hypertension Father Other (cerebrovascular) Father Stroke Father Atrial fibrillation Father Lung cancer Brother Other (pacemaker) Brother Past Medical History: Diagnosis Date Abdominal pain 2009 Abnormal x-ray of knee 11/09/2022 B/L Knee Xrays: No acute osseous findings. Degenerative changes, advanced in right medial compartment Allergic reaction 09/12/2016 Allergic reaction and dyspnea Allergies Anemia Asthma (HCC) Chest pain Cholelithiasis 2012 Contusion of left hand COVID-19 06/23/2021 Depression Diabetes (HCC) Diverticulosis Goiter 2011 Head contusion Headache Hypertension Irritable bowel syndrome 2013 Migraine headache Otitis media, right Radial fracture 1998 Type 2 diabetes mellitus without complication (HCC) UTI (urinary tract infection) Past Surgical History: Procedure Laterality Date CHEST XRAY 2012 CHEST PAIN CHOLECYSTECTOMY 2012 Cholelithiasis COLONOSCOPY 2013 Dr. Montero COLONOSCOPY 05/24/2016 Dr. montero Internal hemorhoid, Spastic Colon CT/HEAD 2013 HEADACHE EKG 2012 CHEST PAIN LAPAROTOMY OOPHERECTOMY Left MASS EXCISION removal chest mass ORIF RADIAL SHAFT FRACTURE SD MED TX MEDS NOS 2009 BACTRIUM DS & TYLENOL #3;Disease:OTITIS MEDIA- RIGHT THYROIDECTOMY 2011 Goiter Partial TONSILLECTOMY 1963 TOTAL ABDOMINAL HYSTERECTOMY W/ BILATERAL SALPINGOOPHORECTOMY 2006 NOT cervical Cancer Visit Vitals BP 118/80 Pulse 73 Ht 5' Wt 180 lb SpO2 96% BMI 35.15 kg/m Smoking Status Never BSA 1.86 m Review of Systems Constitutional: Negative for weight loss. Respiratory: Negative for shortness of breath. Cardiovascular: Negative for chest pain. Gastrointestinal: Negative for constipation. Neurological: Negative for dizziness, facial asymmetry and headaches. Endocrine: Negative for polydipsia, polyphagia and polyuria. Objective Physical Exam Constitutional: General: She is not in acute distress. Appearance: Normal appearance. She is obese. HENT: Head: Normocephalic. Neck: Vascular: No carotid bruit. Cardiovascular: Rate and Rhythm: Normal rate and regular rhythm. Pulmonary: Effort: Pulmonary effort is normal. No respiratory distress. Breath sounds: Normal breath sounds. Neurological: General: No focal deficit present. Mental Status: She is alert and oriented to person, place, and time. Psychiatric: Mood and Affect: Mood normal. Office Visit on 04/23/2025 Component Date Value Ref Range Status Hemoglobin A1C 04/23/2025 6.5 Final Assessment/Plan Problem List Items Addressed This Visit Hypertriglyceridemia Relevant Orders CBC and differential Comprehensive metabolic panel Lipid panel Type 2 diabetes mellitus with other diabetic kidney complication (HCC) No Tobacco use Follow ADA 1800 diet [...] SoloStar) 300 UNIT/ML injection Other Relevant Orders CBC and differential Comprehensive metabolic panel Microalbumin / creatinine urine ratio POCT Glycated hemoglobin, total (Completed) Other Visit Diagnoses Encounter for screening mammogram for malignant neoplasm of breast Relevant Orders Bilateral screening mammogram Benign essential hypertension Relevant Orders CBC and differential Comprehensive metabolic panel Annual physical exam Relevant Orders CBC and differential Comprehensive metabolic panel Lipid panel Microalbumin / creatinine urine ratio Follow up in about 4 months (around 08/24/2025) for Diabetes. documented in this encounter [facility] 04-03-2025 Telephone encounter Note Allopurinol sent. [facility] 04-03-2025 Miscellaneous Notes Allopurinol sent. documented in this encounter [facility] 11-19-2024 Telephone encounter Note Rybelsus sent. [facility] 11-19-2024 Miscellaneous Notes Rybelsus sent. documented in this encounter [facility] 10-23-2024 History of Present illness Narrative Associated [...] 10/23/2024 12:52 PM. Subjective Patient ID: Airam Silverio is a 64 y.o. female who presents [...] being taken. She does not see a acoustic warfare analyst.Eye exam is current. Current Outpatient Medications on [...] Allergies Anemia Asthma (CMS/HCC) Chest pain Cholelithiasis 2012 Contusion of left hand COVID-19 06/23/2021 Depression (CMS/HCC) Diabetes (CMS/HCC) Diverticulosis Goiter (CMS/HCC) 2011 Head contusion Headache Hypertension (CMS/HCC) Irritable bowel syndrome 2014 Migraine headache (CMS/HCC) Otitis media, right Radial fracture 1999 Type 2 diabetes mellitus without complication (CMS/HCC) UTI (urinary tract infection) Past Surgical History: Procedure Laterality Date CHEST XRAY 2012 CHEST PAIN CHOLECYSTECTOMY 2013 Cholelithiasis COLONOSCOPY 2014 Dr. Montero COLONOSCOPY 05/24/2016 Dr. montero Internal hemorhoid, Spastic Colon CT/HEAD 2013 HEADACHE EKG 2013 CHEST PAIN LAPAROTOMY OOPHERECTOMY Left MASS EXCISION removal chest mass ORIF RADIAL SHAFT FRACTURE SD MED TX MEDS NOS 2009 BACTRIUM DS [...] adult Weight loss encouraged Stable angina pectoris (CMS/HCC) - Primary Relevant Orders Stress test with myocardial perfusion Follow up in about 6 months (around 04/22/2025) for Diabetes. documented in this encounter [facility] 07-11-2024 History of Present illness Narrative Images [...] Allergic reaction and dyspnea Allergies Anemia Asthma ([facility]) Chest pain Cholelithiasis 2012 Contusion of left hand COVID-19 06/23/2021 Depression ([facility]/HCC) Diabetes ([facility]/HCC) Diverticulosis Goiter ([facility]) 2011 Head contusion Headache Hypertension ([facility]) Irritable bowel syndrome 2014 Migraine headache ([facility]) Otitis media, right Radial fracture 1999 Type 2 diabetes mellitus without complication ([facility]) UTI (urinary tract infection) Past Surgical History: Procedure Laterality Date CHEST XRAY 2012 CHEST PAIN CHOLECYSTECTOMY 2012 Cholelithiasis COLONOSCOPY 2013 Dr. Montero COLONOSCOPY 05/24/2016 Dr. montero Internal hemorhoid, Spastic Colon CT/HEAD 2012 HEADACHE EKG 2012 CHEST PAIN LAPAROTOMY OOPHERECTOMY Left MASS EXCISION removal chest mass ORIF RADIAL SHAFT FRACTURE SD MED TX MEDS NOS 2009 BACTRIUM DS [...] follow-ups on file. documented in this encounter [facility] 02-22-2024 Hospital Discharge instructions Patient Education 02/22/2024 [...] Follow these instructions at home: Medicines Take [id number] and prescription medicines only as told by [...] provider. Document Revised: 05/01/2021 Document Reviewed: 05/01/2021 EGT Patient Education 2022 [employer]. Follow Up Care 01/16/2024 11:44:07 With:LEVI NICOLE, DEA Faith, URL Address: [address] [place] [address] When: Unknown [facility] 08-09-2022 Evaluation note Encounter Date Diagnosis Assessment [...] weeks for the cough to go away. [facility] Other 09-21-2021 Hospital Discharge instructions* Discharge Instr [...] MENTAL STATUS:} IV Access: { RONNI IV ACCESS:417951556} Nursing Mobility/ADLs: Walking {CHP DME ADLs:388633714} Transfer {CHP DME ADLs:115665687} Bathing {CHP DME ADLs:304570589} Dressing {CHP DME ADLs:567823437} Toileting {CHP DME ADLs:601120419} Feeding {CHP DME ADLs:083546757} Integrated Circuit Layout Designer {CHP DME ADLs:292948044} Med Delivery { ORNNI MED Delivery:487515426} Wound Care Documentation and Therapy: Elimination: Continence: Bowel: {YES / NO:} Bladder: {YES / NO:} Urinary Catheter: {Urinary Catheter:790338274} Colostomy/Ileostomy/Ileal Conduit: {YES / NO:} Date of Last BM: No intake or output data in the 24 hours ending 06/23/21 1601 No intake/output data recorded. Safety Concerns: { RONNI Safety Concerns:727791000} Impairments/Disabilities: { RONNI Impairments/Disabilities:881151305} Nutrition Therapy: Current Nutrition Therapy: { RONNI Diet List:851558957} Routes of Feeding: {P DME Other Feedings:126684776} Liquids: {Rolfer liquid thickness:20892} Daily Fluid Restriction: {CHP DME Yes amt example:451634057} Last Modified Barium Swallow with Video (Video Swallowing Test): {Done Not Done Date:} Treatments at the Time of Hospital Discharge: Respiratory Treatments: Oxygen Therapy: {Therapy; copd oxygen:20937} Ventilator: { CC Vent List:780549406} Rehab Therapies: {THERAPEUTIC INTERVENTION:6509758429} Weight Bearing Status/Restrictions: { CC Weight Bearin} Other Medical Equipment (for information only, NOT a DME order): {EQUIPMENT:233559756} Other Treatments: Patient's personal belongings (please select all that are sent with patient): {[facility] DME Belongings:407983710} RN SIGNATURE: {Esignature:933539869} CASE MANAGEMENT/SOCIAL WORK SECTION Inpatient Status Date: Readmission Risk Assessment Score: Readmission Risk Risk of Unplanned Readmission: 0 Discharging to Facility/ Agency Name: Address: Phone: Fax: Dialysis Facility (if applicable) Name: Address: Dialysis Schedule: Phone: Fax: Hull Molder/Maintenance Associate signature: {Esignature:670737329} PHYSICIAN SECTION Prognosis: {Prognosis:2340601533} Condition at Discharge: {MH Patient Condition:002850118} Rehab Potential (if transferring to Rehab): {Prognosis:3368685707} Recommended Labs or Other Treatments After Discharge: Physician Certification: I certify the above information and transfer of Airam Silverio is necessary for the continuing treatment of the diagnosis listed and that she requires {Admit to AppropriateLevel of Care:20153} for {GREATER/LESS:452636298} 30 days. Update Admission H&P: {CHP DME Changes in HandP:534409758} PHYSICIAN SIGNATURE: {Esignature:537159796} * Attachments The following attachments cannot be sent through Care Everywhere. * Coronavirus Disease (COVID-19): General Info (Estonian) [email or web address] Phone: evaluation + Plan note Future Appointments Appointment Date:05/01/2024 08:40:00 AM Scheduled Provider:DEA SIMS PA-C Location:[facility] Appointment Type:URO Office Visit [facility] evaluation + Plan note Future Appointments Appointment Date:05/01/2024 08:40:00 AM Scheduled Provider:DEA SIMS PA-C Location:[facility] Appointment Type:URO Office Visit Diagnostic Tests Pending * [facility]- Primary [facility]: evalgvlarg note* Diagnosis Urinary tract infection with hematuria, site unspecified- Primary Bronchitis Bronchitis, not specified as acute or chronic [facility] Diagnosis Hyperchylomicronemia (CMS/HCC)- Primary Hyperchylomicronemia Anxiety state (CMS/HCC) Anxiety state, unspecified 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) Benign essential hypertension (CMS/HCC) Essential hypertension, benign Dizziness- Primary Dizziness and giddiness Abnormal glucose tolerance test Impaired glucose tolerance test Benign essential hypertension (CMS/HCC) Essential hypertension, benign Annual physical exam Routine general medical examination at a health care facility 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) Hypertriglyceridemia (CMS/HCC) Pure hyperglyceridemia Hyperchylomicronemia (CMS/HCC) Hyperchylomicronemia Anxiety state (CMS/HCC) Anxiety state, unspecified Morbid (severe) obesity due to excess calories (CMS/HCC) Body mass index (BMI) 37.0-37.9, adult Stable angina pectoris (CMS/HCC)- Primary 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) Morbid (severe) obesity due to excess calories (CMS/HCC) Essential (primary) hypertension (CMS/HCC) Unspecified essential hypertension Body mass index (BMI) 35.0-35.9, adult [facility] Diagnosis Hyperchylomicronemia (CMS/HCC)- Primary Hyperchylomicronemia Anxiety state (CMS/HCC) Anxiety state, unspecified 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) Benign essential hypertension (CMS/HCC) Essential hypertension, benign Dizziness- Primary Dizziness and giddiness Abnormal glucose tolerance test Impaired glucose tolerance test Benign essential hypertension (CMS/HCC) Essential hypertension, benign Annual physical exam Routine general medical examination at a health care facility 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) Hypertriglyceridemia (CMS/HCC) Pure hyperglyceridemia Hyperchylomicronemia (CMS/HCC) Hyperchylomicronemia Anxiety state (CMS/HCC) Anxiety state, unspecified Morbid (severe) obesity due to excess calories (CMS/HCC) Body mass index (BMI) 37.0-37.9, adult Stable angina pectoris (CMS/HCC)- Primary 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) Morbid (severe) obesity due to excess calories (CMS/HCC) Essential (primary) hypertension (CMS/HCC) Unspecified essential hypertension Body mass index (BMI) 35.0-35.9, adult 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) [facility]* Diagnosis Hyperchylomicronemia- Primary Hyperchylomicronemia Anxiety state Anxiety state, unspecified Type 2 diabetes mellitus with other diabetic kidney complication (HCC) Benign essential hypertension Essential hypertension, benign Dizziness- Primary Dizziness and giddiness Abnormal glucose tolerance test Impaired glucose tolerance test Benign essential hypertension Essential hypertension, benign Annual physical exam Routine general medical examination at a health care facility Type 2 diabetes mellitus with other diabetic kidney complication (HCC) Hypertriglyceridemia Pure hyperglyceridemia Hyperchylomicronemia Hyperchylomicronemia Anxiety state Anxiety state, unspecified Morbid (severe) obesity due to excess calories (CMS-HCC) Body mass index (BMI) 37.0-37.9, adult Stable angina pectoris- Primary Type 2 diabetes mellitus with other diabetic kidney complication (HCC) Morbid (severe) obesity due to excess calories (CMS-HCC) Essential (primary) hypertension Unspecified essential hypertension Body mass index (BMI) 35.0-35.9, adult Acute cystitis with hematuria documented in this encounter [facility]* Diagnosis Hyperchylomicronemia- Primary Hyperchylomicronemia Anxiety state Anxiety state, unspecified Type 2 diabetes mellitus with other diabetic kidney complication (HCC) Benign essential hypertension Essential hypertension, benign Dizziness- Primary Dizziness and giddiness Abnormal glucose tolerance test Impaired glucose tolerance test Benign essential hypertension Essential hypertension, benign Annual physical exam Routine general medical examination at a health care facility Type 2 diabetes mellitus with other diabetic kidney complication (HCC) Hypertriglyceridemia Pure hyperglyceridemia Hyperchylomicronemia Hyperchylomicronemia Anxiety state Anxiety state, unspecified Morbid (severe) obesity due to excess calories (CMS-HCC) Body mass index (BMI) 37.0-37.9, adult Stable angina pectoris- Primary Type 2 diabetes mellitus with other diabetic kidney complication (HCC) Morbid (severe) obesity due to excess calories (CMS-HCC) Essential (primary) hypertension Unspecified essential hypertension Body mass index (BMI) 35.0-35.9, adult Encounter for screening mammogram for malignant neoplasm of breast Benign essential hypertension Essential hypertension, benign Type 2 diabetes mellitus with other diabetic kidney complication (HCC) Annual physical exam Routine general medical examination at a health care facility Hypertriglyceridemia Pure hyperglyceridemia documented in this encounter [facility]* Diagnosis Hyperchylomicronemia- Primary Hyperchylomicronemia Anxiety state Anxiety state, unspecified Type 2 diabetes mellitus with other diabetic kidney complication (HCC) Benign essential hypertension Essential hypertension, benign Dizziness- Primary Dizziness and giddiness Abnormal glucose tolerance test Impaired glucose tolerance test Benign essential hypertension Essential hypertension, benign Annual physical exam Routine general medical examination at a health care facility Type 2 diabetes mellitus with other diabetic kidney complication (HCC) Hypertriglyceridemia Pure hyperglyceridemia Hyperchylomicronemia Hyperchylomicronemia Anxiety state Anxiety state, unspecified Morbid (severe) obesity due to excess calories ([facility]) Body mass index (BMI) 37.0-37.9, adult Stable angina pectoris- Primary Type 2 diabetes mellitus with other diabetic kidney complication (HCC) Morbid (severe) obesity due to excess calories ([facility]-HCC) Essential (primary) hypertension Unspecified essential hypertension Body mass index (BMI) 35.0-35.9, adult Encounter for screening mammogram for malignant neoplasm of breast Benign essential hypertension Essential hypertension, benign Type 2 diabetes mellitus with other diabetic kidney complication (HCC) Annual physical exam Routine general medical examination at a health care facility Hypertriglyceridemia Pure hyperglyceridemia Acute non-recurrent pansinusitis- Primary Acute bronchitis, unspecified organism Right acute otitis media Unspecified otitis media [facility] N[facility] - Reported* Type Description Date Medical History Hypertension Medical History type II diabetes Medical History [facility] Other Hospital course Narrative No data available for this section [facility] Hospital Discharge instructions No data available for this section [facility] progress note No data available for this section [facility] Summary Purpose Family History No Family History [...] Reason Comments Diabetes Last A1c was 6.5 Reason Comments Med Refill Reason Comments Diabetes Last 6.0 Ordered Prescriptions (unrec ognized section and content) [...] DATE CREATED AUTHOR AUTHOR'S ORGANIZ ATION 03/09/2024 [employer] [facility] DATE CREATED AUTHOR AUTHOR'S ORGANIZ ATION 03/10/2024 [facility] DATE CREATED AUTHOR AUTHOR'S ORGANIZ ATION 05/11/2024 Kevin Damico [facility] DATE CREATED AUTHOR AUTHOR'S ORGANIZ ATION 05/16/2025 [facility] DATE CREATED AUTHOR AUTHOR'S ORGANIZ ATION 05/17/2025 [facility] Patient Care team informatio n (unrecognized section and content) Check Weigher Relationship Specialty Start Date End Date Niles Ortiz MD [address] [place] [address] PCP - General Family Medicine 03/15/23 Niles Ortiz MD [address] [address] PCP - Marcell Castro 01/01/23 Personnel Name: NILES ORTIZ MD Address: Address: [address] [place] [address] FOR RECORDS PERTAINING TO PATIENTS WHO ARE [...] BE BASED ON THE PRIMARY CLINICAL RECORDS. [facility] [employer] [facility]. provides no warranty or guarantee of the accuracy or completeness of information in this document.
--- NOTE | 2025-05-28 10:06 | MM_ITS ---
Patient Name: AIRAM HASTINGS MR#: [id number] : 1960 Exam Date: 05/28/2025 Ordering Doctor: DR MARK ORTIZ M.D. RADIOLOGY REPORT PROCEDURE: MM TOMOSYNTHESIS SCREENING BI COMPARISON: MG MAMM SCREEN 3D CEDRICK CAD, 01/23/2021. MG MAMM SCREEN CEDRICK W CAD, 11/23/2019. MG MAMM SCREEN CEDRICK W CAD, 10/27/2018. MAMMO CEDRICK SCREEN, 05/11/2007. INDICATIONS: Screening Calculator Name NCI Breast Cancer Risk Assessment Tool 5 Year Breast Cancer Risk 1.40% Lifetime Breast Cancer Risk 5.80% Personal Breast Cancer No Personal Ovarian Cancer No Treatments None Family Cancers Grandmother-maternal with gastric/colon cancer at age ~70. LOCATION: [facility] BREAST COMPOSITION: There are scattered areas of fibroglandular density. FINDINGS: RIGHT BREAST: No significant suspicious finding. LEFT BREAST: No significant suspicious finding. DIAGNOSTIC CATEGORY 1--NEGATIVE. RECOMMENDATIONS: ROUTINE MAMMOGRAM AND CLINICAL EVALUATION IN 12 MONTHS. Dictated by: Prosper Cabrera DO on 05/28/2025 at 13:56 Approved by: Prosper Cabrera DO on 05/28/2025 at 13:58
[2025-05-28 10:40] LABS: Hematocrit 42.2 % (36.0-48.0); Hemoglobin 14.1 g/dL (12.0-16.0); Immature Granulocytes Abs Auto 0.03 10^3/uL (0.00-0.03); Immature Granulocytes Pct Auto 0.3 % (0.0-0.5); Lymphocytes Absolute Auto 3.0 10^3/uL (1.2-3.8); Mean Corpuscular HGB Conc 33.4 g/dL (29.9-35.2); Mean Corpuscular Hemoglobin 30.7 pg (26.7-34.0); Mean Corpuscular Volume 91.7 fL (81.0-99.0); Platelet Count 202 10^3/uL (150-450); Red Blood Count 4.60 10^6/uL (4.20-5.40); White Blood Count 10.3 10^3/uL (4.0-11.0)
[2025-05-28 10:49] LABS: Alanine Aminotransferase 11 U/L (14-59); Albumin Globulin Ratio 0.9; Albumin Level 3.7 g/dL (3.4-5.0); Alkaline Phosphatase 84 U/L (46-116); Anion Gap 14.7; Aspartate Amino Transferase 31 U/L (15-37); Blood Urea Nitrogen 23.0 mg/dL (7.0-18.0); Calcium 9.6 mg/dL (8.5-10.1); Carbon Dioxide 25.5 mmol/L (21.0-32.0); Chloride 104 mmol/L (98-107); Cholesterol 162 mg/dL (<=200); Estimated GFR (African America >60 (>=60 mL/min/1.73m^2); Estimated GFR (Non-African Ame 57 (>=60 mL/min/1.73m^2); Globulin 4.2 g/dL; Glucose 111 mg/dL (74-106); HDL Cholesterol 43 mg/dL (40-60); Potassium 4.2 mmol/L (3.5-5.1); Sodium 140 mmol/L (136-145); Total Protein 7.9 g/dL (6.4-8.2); Triglycerides 202 mg/dL (<=150); VLDL CHOLESTEROL 40.4 mg/dL
== END 2025-05-28 09:34 | disposition home or self-care (01) ==
LOC: MAMMO 09:35
PROVIDERS: PCP Family Medicine; Visit Provider Family Medicine
DX: Z00.00 Encounter for general adult medical examination without abnormal findings (principal); Z12.31 Encounter for screening mammogram for malignant neoplasm of breast; I10 Essential (primary) hypertension; E11.29 Type 2 diabetes mellitus with other diabetic kidney complication; E78.1 Pure hyperglyceridemia; Z80.0 Family history of malignant neoplasm of digestive organs
CPT/HCPCS: 36415; 77063; 77067; 80053; 80061; 82043; 82570; 85025